=== PATIENT | male | born 1935 | race African-American/Black ===

== ENCOUNTER 2016-11-21 08:39 | Observation (INO) | payer MEDICARE ==
[~2016-11-21] VITALS: Ht 177.8 cm; Wt 80.0 kg
[2016-11-21 08:39] VITALS: BP 133/72; PULSE 63; TEMP 98.5; O2SAT 97
[~2016-11-21 08:39] MED LIST: APIX5TAB PO; CIPR-9 PO; COZA100T PO; HYDR25TA5 PO; LEVO50TA4 PO; METO100T PO; MIRA3350; MULT1CHW70; NITR50CA27 PO; PRAV80TA2 PO; SULF20OR2 PO; VITATAB11; ZINCCAP; [UNRECOGNIZED DRUG - CODE] PO
[2016-11-21] MEDS ORDERED: SODIUM CHLOR 0.9% 1000 ML INJ 1,000 ML IV SCH (08:49)
[2016-11-21 08:54] VITALS: O2SAT 96
--- NOTE | 2016-11-21 08:58 | PD ---
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 EMS reports that over the past couple days patient's got progressively more weak , progressively less responsive. They report he normally is awake and talking and requires some assistance with his day-to-day activities. Family reports that over the past day or 2 as required increasing assistance, and is now not responding to them at all. History Past Medical History Narrative Medical Left MCA stroke residual right sided deficits Carotid artery disease Hypertension hyperlipidemia Hypothyroidism Urinary retention with chronic indwelling Ayon catheter A. fib, on Eliquis Social History Alcohol Use: No Tobacco Use: No Allergies-Medications (Allergen,Severity, Reaction): Coded Allergies: No Known Allergies (Unverified , 08/17/16) Reported Meds & Prescriptions Reported Meds & Active Scripts Active Reported Pravastatin 80 Mg Tab 80 Mg PO DAILY Vitamin B Complex (B-Complex Vitamins) 1 Tab Macrodantin (Nitrofurantoin Macrocrystal) 50 Mg Cap 50 Mg PO DAILY Metoprolol Tartrate 100 Mg Tab 100 Mg PO BID Cozaar (Losartan Potassium) 100 Mg Tab 100 Mg PO DAILY Levothyroxine (Levothyroxine Sodium) 50 Mcg Tab 50 Mcg PO DAILY Hydrochlorothiazide 25 Mg Tab 25 Mg PO DAILY Eliquis (Apixaban) 5 Mg Tab 5 Mg PO BID Review of Systems ROS Limitations: Clinical Condition Physical Exam Narrative GENERAL: 80-year-old man, generally well-appearing a well cared for, no acute distress. SKIN: Focused skin assessment warm/dry. HEAD: Atraumatic. Normocephalic. EYES: Pupils equal and round. No scleral icterus. No injection or drainage. ENT: No nasal bleeding or discharge. Mucous membranes pink and moist. NECK: Trachea midline. No JVD. CARDIOVASCULAR: Regular rate and rhythm. No murmur appreciated. RESPIRATORY: No accessory muscle use. Clear to auscultation. Breath sounds equal bilaterally. GASTROINTESTINAL: Abdomen soft, non-tender, nondistended. Hepatic and splenic margins not palpable. MUSCULOSKELETAL: No obvious deformities. No clubbing. No cyanosis. No edema. NEUROLOGICAL: Awake and alert. Very limited speech. He appears to have right sided hemicolectomy. He has right sided contractures and weakness. He'll mumble, but will really answer any questions. He cannot say his name. Data Data Last Documented VS Vital Signs Date Time Temp Pulse Resp B/P Pulse Ox O2 Delivery O2 Flow Rate FiO2 11/21/16 11:00 66 16 121/65 99 Room Air 11/21/16 08:39 98.5 Orders Electrocardiogram (11/21/16 08:49) Complete Blood Count With Diff (11/21/16 08:49) Comprehensive Metabolic Panel (11/21/16 08:49) Creatine Kinase (Cpk) (11/21/16 08:49) Prothrombin Time / Inr (Pt) (11/21/16 08:49) Act Partial Throm Time (Ptt) (11/21/16 08:49) Troponin I (11/21/16 08:49) Thyroid Stimulating Hormone (11/21/16 08:49) Urinalysis - C+S If Indicated (11/21/16 08:49) Chest, Single Ap (11/21/16 08:49) Ct Brain W/O Iv Contrast(Rout) (11/21/16 08:49) Blood Glucose (11/21/16 08:49) Ecg Monitoring (11/21/16 08:49) Iv Access Insert/Monitor (11/21/16 08:49) Oximetry (11/21/16 08:49) Sodium Chloride 0.9% Flush (Ns Flush) (11/21/16 09:00) Sodium Chlor 0.9% 1000 Ml Inj (Ns 1000 M (11/21/16 08:49) Urine Culture (11/21/16 09:10) Ceftriaxone Inj (Rocephin Inj) (11/21/16 11:15) Admit Order (Ed Use Only) (11/21/16 ) Labs Laboratory Tests Test 11/21/16 09:10 White Blood Count 17.6 TH/MM3 Red Blood Count 5.09 MIL/MM3 Hemoglobin 14.4 GM/DL Hematocrit 44.9 % Mean Corpuscular Volume 88.2 FL Mean Corpuscular Hemoglobin 28.2 PG Mean Corpuscular Hemoglobin 32.0 % Concent Red Cell Distribution Width 15.0 % Platelet Count 134 TH/MM3 Mean Platelet Volume 11.4 FL Neutrophils (%) (Auto) 84.5 % Lymphocytes (%) (Auto) 5.8 % Monocytes (%) (Auto) 8.8 % Eosinophils (%) (Auto) 0.4 % Basophils (%) (Auto) 0.5 % Neutrophils # (Auto) 14.9 TH/MM3 Lymphocytes # (Auto) 1.0 TH/MM3 Monocytes # (Auto) 1.6 TH/MM3 Eosinophils # (Auto) 0.1 TH/MM3 Basophils # (Auto) 0.1 TH/MM3 CBC Comment AUTO DIFF Differential Total Cells 100 Counted Neutrophils % (Manual) 57 % Band Neutrophils % 8 % Lymphocytes % 31 % Monocytes % 4 % Neutrophils # (Manual) 11.4 TH/MM3 Differential Comment FINAL DIFF MANUAL Platelet Estimate LOW Platelet Morphology Comment NORMAL Acanthocytes OCC Prothrombin Time 16.5 SEC Prothromb Time International 1.5 RATIO Ratio Activated Partial 39.5 SEC Thromboplast Time Urine Color YELLOW Urine Turbidity HAZY Urine pH 6.5 Urine Specific [place] 1.019 Urine Protein 100 mg/dL Urine Glucose (UA) NEG mg/dL Urine Ketones NEG mg/dL Urine Occult Blood SMALL Urine Nitrite NEG Urine Bilirubin NEG Urine Urobilinogen 2.0 MG/DL Urine Leukocyte Esterase LARGE Urine RBC 16 /hpf Urine WBC 62 /hpf Urine Squamous Epithelial <1 /hpf Cells Urine Bacteria FEW /hpf Urine Hyaline Casts 4 /lpf Urine Granular Casts 4 /lpf Urine Mucus FEW /lpf Microscopic Urinalysis Comment CATH-CULTURE IND Sodium Level 142 MEQ/L Potassium Level 3.9 MEQ/L Chloride Level 106 MEQ/L Carbon Dioxide Level 26.0 MEQ/L Anion Gap 10 MEQ/L Blood Urea Nitrogen 21 MG/DL Creatinine 1.52 MG/DL Estimat Glomerular Filtration 54 ML/MIN Rate Random Glucose 111 MG/DL Calcium Level 8.8 MG/DL Total Bilirubin 1.9 MG/DL Aspartate Amino Transf 22 U/L (AST/SGOT) Alanine Aminotransferase 24 U/L (ALT/SGPT) Alkaline Phosphatase 57 U/L Total Creatine Kinase 68 U/L Troponin I 0.04 NG/ML Total Protein 7.2 GM/DL Albumin 3.5 GM/DL Thyroid Stimulating Hormone 5.210 uIU/ML 3rd Gen [facility] Medical Decision Making Medical Screen Exam Complete: Yes Emergency Medical Condition: Yes Interpretation(s) My review of EKG: A. fib with slow ventricular response, rate of 50, large lateral inverted T waves, compared to previous EKG, compared to previous EKG no significant change Differential Diagnosis Weakness, infection, electrolyte abnormalities, dehydration, stroke, other Narrative Course Medical decision making INITIAL: 80-year-old male gradually worsening altered mental status and generalized weakness. He looks generally well. Family is on the way up. He appears to be worse than his baseline. Wide differential diagnosis. We'll check labs, urine, x-ray, CT, reassess. Gerry Mistry MD Nov 21, 2016 08:58
[2016-11-21] MEDS ORDERED: SODIUM CHLORIDE 0.9% FLUSH 5 ML FLUSH IV FLUSH PRN (09:00)
[2016-11-21 09:24] LABS: AUTOMATED NEUTROPHIL # 14.9 TH/MM3 (1.8-7.7); BASOPHIL # 0.1 TH/MM3 (0-0.2); BASOPHIL % 0.5 % (0.0-2.0); EOSINOPHIL # 0.1 TH/MM3 (0-0.4); EOSINOPHIL % 0.4 % (0.0-4.0); HEMATOCRIT 44.9 % (39.0-51.0); LYMPH % 5.8 % (9.0-44.0); MEAN CELL VOLUME 88.2 FL (80.0-100.0); MEAN CORPUSCULAR HEMOGLOBIN 28.2 PG (27.0-34.0); MONO % 8.8 % (0.0-8.0); NEUT % 84.5 % (16.0-70.0); PLATELET COUNT 134 TH/MM3 (150-450); RED BLOOD COUNT 5.09 MIL/MM3 (4.50-5.90); WHITE BLOOD COUNT 17.6 TH/MM3 (4.0-11.0)
[2016-11-21 09:26] LABS: HEMO FLAGS AUTO DIFF
[2016-11-21 09:35] LABS: APTT (PATIENT) 39.5 SEC (24.3-30.1); INTERNATIONAL NORMALIZED RATIO 1.5 RATIO; PROTHROMBIN TIME - PATIENT 16.5 SEC (9.8-11.6)
[2016-11-21 10:10] LABS: ALKALINE PHOSPHATASE 57 U/L (45-117); ALT (GPT) 24 U/L (12-78); ANION GAP 10 MEQ/L (5-15); BLOOD UREA NITROGEN 21 MG/DL (7-18); CHLORIDE 106 MEQ/L (98-107); GLOMERULAR FILTRATION RATE 54 ML/MIN (>89); SODIUM (NA) 142 MEQ/L (136-145); TOTAL BILIRUBIN ADULT 1.9 MG/DL (0.2-1.0)
--- NOTE | 2016-11-21 10:10 | RADRPT ---
EXAM DATE/TIME: 11/21/2016 09:43 [facility] COMPARISON: CHEST SINGLE AP, June 02, 2016, 5:42. INDICATIONS : Syncope. MEDICAL HISTORY : Hypertension. Stroke. SURGICAL HISTORY : None. ENCOUNTER: Initial ACUITY: 1 day PAIN SCORE: 0/10 LOCATION: Bilateral chest FINDINGS: A single view of the chest demonstrates no evidence of mass, infiltrate or effusion. Elevation left h emidiaphragm with shift of mediastinum to the right again seen. The cardiomediastinal contours are un remarkable. Osseous structures are intact. CONCLUSION: Stable chest with elevation left hemidiaphragm.. Marques Argueta MD on November 21, 2016 at 10:07 Board Certified Radiologist. This report was verified electronically.
--- NOTE | 2016-11-21 10:12 | RADRPT ---
EXAM DATE/TIME: 11/21/2016 09:57 [facility] COMPARISON: CT BRAIN W/O CONTRAST, October 26, 2015, 17:41. INDICATIONS : Altered mental status. Weakness. RADIATION DOSE: 56.35 CTDIvol (mGy) MEDICAL HISTORY : Cardiovascular disease. Hypertension. SURGICAL HISTORY : None. ENCOUNTER: Initial ACUITY: 1 day PAIN SCALE: 0/10 LOCATION: cranial TECHNIQUE: Multiple contiguous axial images were obtained of the head. Using automated exposure control and adj ustment of the mA and/or kV according to patient size, radiation dose was kept as low as reasonably a chievable to obtain optimal diagnostic quality images. FINDINGS: There is marked central and cortical atrophy with dilatation of ventricular and sulcal spaces. Old le ft MCA distribution infarct. Scattered areas of low attenuation throughout the white matter. Lacunar infarct left caudate head. There is no parenchymal hemorrhage, acute infarction or mass lesion identi fied. There are no extra-axial fluid collections appreciated. The posterior fossa is unremarkable w ith midline fourth ventricle. The portion of the orbits and paranasal sinuses visualized are unremar kable. CONCLUSION: 1. Cerebral atrophy and chronic ischemic small vessel vasculopathy. 2. Old stable left-sided infarct. Marques Argueta MD on November 21, 2016 at 10:08 Board Certified Radiologist. This report was verified electronically.
[2016-11-21 10:13] LABS: BACTERIA, URINE FEW /hpf; BLOOD, URINE SMALL (NEG); GLUCOSE,URINE NEG (NEG); GRANULAR CAST, URINE 4 /lpf; HYALINE CAST, URINE 4 /lpf (RARE); KETONE, URINE NEG (NEG); MUCUS URINE FEW /lpf (OCC); NITRITE,URINE NEG (NEG); PH, URINE 6.5 (5.0-8.5); SQUAMOUS EPITHELIAL CELL URINE <1 /hpf (0-5); URINE COLOR YELLOW (YELLW/STRAW)
[2016-11-21 10:14] LABS: COMMENT (UR) CATH-CULTURE IND; CULTURE IF INDICATED CATH CULTURE IND
[2016-11-21 10:19] LABS: AST (GOT) 22 U/L (15-37); CREATINE KINASE 68 U/L (39-308); POTASSIUM 3.9 MEQ/L (3.5-5.1)
[2016-11-21 10:40] LABS: BANDS 8 % (0-6); NEUTROPHIL # MANUAL DIFF 11.4 TH/MM3 (1.8-7.7); PLATELET ESTIMATE SMEAR LOW (NORMAL); PLATELET MORPHOLOGY NORMAL (NORMAL); POLYS (SEG NEUTROPHILS) 57 % (16-70); SCAN/DIFF FINAL DIFF MANUAL; WBC DIFF SAMPLE 100
[2016-11-21 10:41] LABS: ACANTHOCYTES OCC (NORMAL)
[2016-11-21 11:00] VITALS: BP 121/65; PULSE 66; RESP 16; O2SAT 99
[2016-11-21] MEDS ORDERED: cefTRIAXone INJ 1,000 MG in SODIUM CHLORIDE 0.9% INJ 100 ML IV ONE (11:15)
[2016-11-21] MEDS ORDERED: ONDANSETRON HCL 4 MG/2 ML VIAL IV PUSH PRN (12:30)
[2016-11-21] MEDS ORDERED: SODIUM CHLORID 0.9% 500 ML INJ 500 ML IV ONE (12:30)
[2016-11-21] MEDS ORDERED: ACETAMINOPHEN 325 MG TAB PO PRN (12:30)
--- NOTE | 2016-11-21 12:37 | HHI.HP ---
HPI Service [facility] Primary Care Physician Unknown Admission Diagnosis UTI, AMS Diagnoses: (1) Acute encephalopathy Diagnosis: Principal (2) UTI (urinary tract infection) Diagnosis: Principal Chief Complaint: altered mental status Travel History International Travel<30 Days: No Contact w/Intl Traveler <30 Da: No Traveled to Known Affected Are: No History of Present Illness patient is a 80 y/o male with history of atrial fibrillation, CVA with right sided residual weakness, and urinary retention with carrasco catheter in place, was brought to ER with altered mental status. most of the information was obtained from his daughters at the bedside. his daughter says that his carrasco cath was changed on Sunday. he started to have some discomfort after the carrasco exchange. he then started to get weak over the weekend. she says that he normally helps them with routine daily activities. but on Sunday he was so weak that ' he couldn't do anything'. the daughter decided to bring him to ER and while he was in the garage ' he spaced out ' which she says that 'it happens when he has UTI'. there's no report of fever, chills, chest pain, sob or headache.carrasco was changed in ER. at the time of my evaluation he was resting comfortably with no distress. the daughter says that he's back to his normal. Review of Systems Constitutional: DENIES: Fever, Weight loss, Chills, Night Sweats Eyes: DENIES: Blurred vision, Diplopia, Vision loss, Double Vision Ears, nose, mouth, throat: DENIES: Tinnitus, Vertigo, Throat pain, Epistaxis Respiratory: DENIES: Apneas, Cough, Snoring, Wheezing, Hemoptysis, Sputum production, Shortness of breath Cardiovascular: DENIES: Chest pain, Palpitations, Syncope, Dyspnea on Exertion , PND, Lower Extremity Edema, Orthopnea, Claudication Gastrointestinal: DENIES: Abdominal pain, Black stools, Bloody stools, Constipation, Diarrhea, Nausea, Vomiting, Difficulty Swallowing, Anorexia Genitourinary: DENIES: Urinary frequency, Urgency, Hematuria, Dysuria Musculoskeletal: DENIES: Joint pain, Muscle aches, Stiffness, Joint Swelling Integumentary: DENIES: Rash Neurologic: COMPLAINS OF: Poor Balance, DENIES: Abnormal gait, Headache, Localized weakness, Paresthesias, Seizures, Speech Problems, Tremor Psychiatric: COMPLAINS OF: Confusion, DENIES: Anxiety, Mood changes, Depression, Hallucinations, Agitation, Suicidal Ideation, Homicidal Ideation, Delusions Past Family Social History Past Medical History atrial fibrillation CVA urinary retention carotid artery disease Past Surgical History carotid endarterectomy appendectomy Reported Medications Pravastatin 80 Mg Tab 80 Mg PO DAILY Vitamin B Complex (B-Complex Vitamins) 1 Tab Macrodantin (Nitrofurantoin Macrocrystal) 50 Mg Cap 50 Mg PO DAILY Metoprolol Tartrate 100 Mg Tab 100 Mg PO BID Cozaar (Losartan Potassium) 100 Mg Tab 100 Mg PO DAILY Levothyroxine (Levothyroxine Sodium) 50 Mcg Tab 50 Mcg PO DAILY Hydrochlorothiazide 25 Mg Tab 25 Mg PO DAILY Eliquis (Apixaban) 5 Mg Tab 5 Mg PO BID Allergies: Coded Allergies: No Known Allergies (Unverified , 08/17/16) Active Ordered Medications Current Medications IV Flush 2 ml 2 ml UNSCH PRN IV FLUSH FLUSH AFTER USING IV ACCESS; Start at 09:00 Sodium Chloride 1,000 ml @ 1,000 mls/hr Q1H IV Last administered on 11/21/16 09:20; Start 11/21/16 at 08:49; Stop 11/21/16 at 09:48; Status DC Ceftriaxone Sodium/Sodium Chloride (Rocephin Inj/NS Inj) 100 ml @ 200 mls/hr ONCE ONCE IV Last administered on 11/21/16 11:13; Start 11/21/16 at 11:15; Stop 11/21/16 at 11:44; Status DC Family History heart disease in sister. Social History no smoking or drinking. lives at home and being helped by his daughters. Physical Exam Vital Signs Vital Signs Date Time Temp Pulse Resp B/P Pulse Ox O2 Delivery O2 Flow Rate FiO2 11/21/16 11:00 66 16 121/65 99 Room Air 11/21/16 08:54 96 Room Air 11/21/16 08:54 60 17 96 Room Air 11/21/16 08:39 98.5 63 133/72 97 Physical Exam GENERAL: elderly male, in no apparent distress. SKIN: No rashes, ecchymoses or lesions. Cool and dry. HEAD: Atraumatic. Normocephalic. No temporal or scalp tenderness. EYES: Pupils equal round and reactive. Extraocular motions intact. No scleral icterus. No injection or drainage. ENT: Nose without bleeding, purulent drainage or septal hematoma. Throat without erythema, tonsillar hypertrophy or exudate. Uvula midline. Airway patent. NECK: Trachea midline. No JVD or lymphadenopathy. Supple, nontender, no meningeal signs. CARDIOVASCULAR: Regular rate and rhythm without murmurs, gallops, or rubs. RESPIRATORY: Clear to auscultation. Breath sounds equal bilaterally. No wheezes , rales, or rhonchi. GASTROINTESTINAL: Abdomen soft, non-tender, nondistended. No hepato-splenomegaly , or palpable masses. No guarding. MUSCULOSKELETAL: Extremities without clubbing, cyanosis, or edema. No joint tenderness, effusion, or edema noted. No calf tenderness. Negative Homans sign bilaterally. NEUROLOGICAL: Awake and alert. with right-sided weakness. Laboratory Laboratory Tests Test 11/21/16 09:10 White Blood Count 17.6 Red Blood Count 5.09 Hemoglobin 14.4 Hematocrit 44.9 Mean Corpuscular Volume 88.2 Mean Corpuscular Hemoglobin 28.2 Mean Corpuscular Hemoglobin 32.0 Concent Red Cell Distribution Width 15.0 Platelet Count 134 Mean Platelet Volume 11.4 Neutrophils (%) (Auto) 84.5 Lymphocytes (%) (Auto) 5.8 Monocytes (%) (Auto) 8.8 Eosinophils (%) (Auto) 0.4 Basophils (%) (Auto) 0.5 Neutrophils # (Auto) 14.9 Lymphocytes # (Auto) 1.0 Monocytes # (Auto) 1.6 Eosinophils # (Auto) 0.1 Basophils # (Auto) 0.1 CBC Comment AUTO DIFF Differential Total Cells 100 Counted Neutrophils % (Manual) 57 Band Neutrophils % 8 Lymphocytes % 31 Monocytes % 4 Neutrophils # (Manual) 11.4 Differential Comment FINAL DIFF MANUAL Platelet Estimate LOW Platelet Morphology Comment NORMAL Acanthocytes OCC Prothrombin Time 16.5 Prothromb Time International 1.5 Ratio Activated Partial 39.5 Thromboplast Time Urine Color YELLOW Urine Turbidity HAZY Urine pH 6.5 Urine Specific [place] 1.019 Urine Protein 100 Urine Glucose (UA) NEG Urine Ketones NEG Urine Occult Blood SMALL Urine Nitrite NEG Urine Bilirubin NEG Urine Urobilinogen 2.0 Urine Leukocyte Esterase LARGE Urine RBC 16 Urine WBC 62 Urine Squamous Epithelial <1 Cells Urine Bacteria FEW Urine Hyaline Casts 4 Urine Granular Casts 4 Urine Mucus FEW Microscopic Urinalysis Comment CATH-CULTURE IND Sodium Level 142 Potassium Level 3.9 Chloride Level 106 Carbon Dioxide Level 26.0 Anion Gap 10 Blood Urea Nitrogen 21 Creatinine 1.52 Estimat Glomerular Filtration 54 Rate Random Glucose 111 Calcium Level 8.8 Total Bilirubin 1.9 Aspartate Amino Transf 22 (AST/SGOT) Alanine Aminotransferase 24 (ALT/SGPT) Alkaline Phosphatase 57 Total Creatine Kinase 68 Troponin I 0.04 Total Protein 7.2 Albumin 3.5 Thyroid Stimulating Hormone 5.210 3rd Gen Date/Time Procedure Status Source Growth 11/21/16 09:10 Urine Culture Worksheet Urine Catheterized Urine Pending Result Diagram: 11/21/1610 11/21/16 0910 Imaging Last Impressions Head CT 11/21/16 0849 Signed Impressions: Service Date/Time: Monday, November 21, 2016 09:57 - CONCLUSION: 1. Cerebral atrophy and chronic ischemic small vessel vasculopathy. 2. Old stable left- sided infarct. Marques Argueta MD Chest X-Ray 11/21/1649 Signed Impressions: Service Date/Time: Monday, November 21, 2016 09:43 - CONCLUSION: Stable chest with elevation left hemidiaphragm.. Marques Argueta MD EKG; atrial fibrillation with slow ventricular response Assessment and Plan Assessment and Plan A/P - acute encephalopathy likely due to UTI CT head with no acute abnormality continue with IV antibiotic and neuro-checks- follow the culture. -UTI- catheter-associated ( carrasco in place due to chronic urinary retention) carrasco cath was changed in ER - continue with IV Rocephin. -atrial fibrillation- resume BB and eliquis -history of CVA; resume statin and eliquis- will consult PT/ST -chronic renal insufficiency- gentle IV hydration and repeat BMP in am -hypertension; resume home meds and will monitor -hypothyroidism; resume home meds -DVT prophylaxis ; on eliquis Discussed Condition With ER physician, the patient and his daughters. Problem Qualifiers (1) UTI (urinary tract infection): Christina Patel MD Nov 21, 2016 12:37
[2016-11-21 15:34] VITALS: BP 145/70; PULSE 76; RESP 20; TEMP 99.9; O2SAT 96
--- NOTE | 2016-11-21 16:49 | EKG ---
Date Performed: 11/21/2016 Time Performed: 08:59:40 PTAGE: 80 years EKG: ATRIAL FIBRILLATION WITH SLOW VENTRICULAR RESPONSE ST DEVIATION AND MARKED T-WAVE ABNORMALI TY, CONSIDER ANTEROLATERAL ISCHEMIA ST DEVIATION AND MODERATE T-WAVE ABNORMALITY, CONSIDER INFERIOR I SCHEMIA Since previous tracing, no significant change noted ABNORMAL ECG PREVIOUS TRACING : 10/26/2015 19.24 DOCTOR: Karishma Diaz Interpretating Date/Time 11/21/2016 17:27:18
[2016-11-21 20:47] VITALS: BP 125/60; PULSE 66; RESP 18; TEMP 98.1; O2SAT 97
[2016-11-21] MEDS: METOPROLOL TARTRATE 100 MG TAB PO SCH (22:43)
[2016-11-21] MEDS: APIXABAN 5 MG TABLET PO SCH (22:43)
[2016-11-22] VITALS (7 sets, daily range): BP systolic 110–178; BP diastolic 53–84; PULSE 54–84; RESP 17–18; TEMP 97.8–99.7; O2SAT 95–98
[2016-11-22] MEDS ORDERED: LEVOTHYROXINE SODIUM 50 MCG TAB PO SCH (06:00)
[2016-11-22 07:53] LABS: AUTOMATED NEUTROPHIL # 11.1 TH/MM3 (1.8-7.7); BASOPHIL % 0.2 % (0.0-2.0); EOSINOPHIL % 0.3 % (0.0-4.0); HEMATOCRIT 36.3 % (39.0-51.0); HEMO FLAGS DIFF FINAL; LYMPH % 11.9 % (9.0-44.0); LYMPHOCYTE # 1.6 TH/MM3 (1.0-4.8); MEAN CELL VOLUME 86.9 FL (80.0-100.0); MEAN CORPUSCULAR HGB CONC 33.3 % (32.0-36.0); MONO % 6.8 % (0.0-8.0); NEUT % 80.8 % (16.0-70.0); PLATELET COUNT 107 TH/MM3 (150-450); RED BLOOD COUNT 4.18 MIL/MM3 (4.50-5.90); RED CELL DISTRIBUTION WIDTH 14.7 % (11.6-17.2); WHITE BLOOD COUNT 13.7 TH/MM3 (4.0-11.0)
[2016-11-22 08:15] LABS: BICARBONATE 26.6 MEQ/L (21.0-32.0); POTASSIUM 3.5 MEQ/L (3.5-5.1)
[2016-11-22] MEDS: PRAVASTATIN SOD 80 MG TAB PO SCH (08:57)
[2016-11-22] MEDS: LOSARTAN 50 MG TAB PO SCH (08:57)
[2016-11-22] MEDS: METOPROLOL TARTRATE 100 MG TAB PO SCH ×2 (08:57→21:00)
[2016-11-22] MEDS: APIXABAN 5 MG TABLET PO SCH ×2 (08:57→21:00)
--- NOTE | 2016-11-22 09:11 | HHI.PR ---
Subjective Remarks Follow-up for altered mental status. RN at bedside. The patient is awake and alert and in no distress distress. He is unable to provide any history and only mumbles incoherently. He does shake his head yes he's been eating. He does shake his head yes that he lives with his daughter. Objective Vitals Vital Signs Date Time Temp Pulse Resp B/P Pulse Ox O2 Delivery O2 Flow Rate FiO2 11/22/16 05:17 98.0 77 18 178/84 97 11/22/16 00:00 98.4 78 18 121/68 97 11/21/16 20:47 98.1 66 18 125/60 97 11/21/16 15:34 99.9 76 20 145/70 96 11/21/16 11:00 66 16 121/65 99 Room Air I/O 11/21/16 11/21/16 11/21/16 11/22/16 11/22/16 11/22/16 07:00 15:00 23:00 07:00 15:00 23:00 Intake Total 0 ml 100 ml 200 ml Output Total 600 ml Balance 0 ml 100 ml -400 ml Intake Oral 0 ml 100 ml 200 ml Output Urine Total 600 ml Result Diagram: 11/22/16 0600 11/22/16 0600 Imaging Last Impressions Head CT 11/21/16 0849 Signed Impressions: Service Date/Time: Monday, November 21, 2016 09:57 - CONCLUSION: 1. Cerebral atrophy and chronic ischemic small vessel vasculopathy. 2. Old stable left- sided infarct. Marques Argueta MD Chest X-Ray 11/21/16 0849 Signed Impressions: Service Date/Time: Monday, November 21, 2016 09:43 - CONCLUSION: Stable chest with elevation left hemidiaphragm.. Marques Argueta MD Objective Remarks GENERAL: Well-developed well-nourished. In no acute distress. SKIN: Warm and dry. No lesions noted. HEENT: Normocephalic. Pupils equal and round. Mucous membranes pink and moist. CARDIOVASCULAR: Irregular rate and rhythm. No murmur appreciated. RESPIRATORY: No accessory muscle use. Clear to auscultation. Breath sounds equal bilaterally. GASTROINTESTINAL: Abdomen soft, non-tender, nondistended. Bowel sounds x4. MUSCULOSKELETAL: No obvious deformities. No clubbing or cyanosis. No edema. NEUROLOGICAL: Awake and alert. Strength 1/5 in the right and 4/5 on the left. Dysphasia. A/P Problem List: (1) Acute encephalopathy ICD Code: G93.40 Status: Acute (2) UTI (urinary tract infection) ICD Code: N39.0 Status: Acute Assessment and Plan 80 y/o male with history of atrial fibrillation, CVA with right sided residual weakness, and urinary retention with carrasco catheter in place, was brought to ER with altered mental status acute metabolic encephalopathy: Suspect due to UTI Reviewed: CT head with no acute abnormality. UA with evidence of infection. Labs with signs of dehydration. -continue with antibiotics -neuro-checks UTI- catheter-associated ( carrasco in place due to chronic urinary retention). carrasco cath was changed in ER - continue with IV Rocephin. -Follow up urine culture Atrial fibrillation: Chronic, stable. 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 TSH elevated at 5.21. -Increase in levothyroxine. Repeat thyroid function in 4-6 as outpatient. -DVT prophylaxis ; on eliquis Problem Qualifiers (1) UTI (urinary tract infection): Jamel Kumar Nov 22, 2016 09:11
[2016-11-22] MEDS ORDERED: cefTRIAXone INJ 1,000 MG in SODIUM CHLORIDE 0.9% INJ 100 ML IV SCH (11:00)
--- NOTE | 2016-11-22 15:58 | HHI.FF ---
Face to Face Verification Diagnosis: (1) Acute encephalopathy (2) Urinary retention (3) UTI (urinary tract infection) Physical Therapy Order: Evaluate and Treat, Improve ambulation, Strength and gait training Home Health Nursing Order: Medical education Signs/symptoms of disease process Medication education-adverse effect Nursing assessment with vital signs I have seen patient Buzz Blanco on 11/22/16. My clinical findings support the need for the requested home health care services because: Ltd mobility - disease progression Deconditioned w/ increased weakness Med compliance is questionable Limited ability to care for self Need for psychosocial assistance Impaired cognition/judgement High risk of falls I certify that my clinical findings support that this patient is homebound because: Impaired cognitive ability/safety Unsteady gait/balance Unsafe to leave home unassisted Need for psychosocial assistance [id number] bed/chair Jamel Kumar Nov 22, 2016 15:58 Chanell Woodson MD Nov 24, 2016 17:41
[2016-11-22 16:56] LABS: BACTERIA, URINE RARE /hpf; BLOOD, URINE TRACE (NEG); GLUCOSE,URINE NEG (NEG); KETONE, URINE NEG (NEG); MUCUS URINE FEW /lpf (OCC); NITRITE,URINE NEG (NEG); PH, URINE 5.5 (5.0-8.5); URINE COLOR YELLOW (YELLW/STRAW)
[2016-11-22 16:59] LABS: COMMENT (UR) CATH-CULTURE IND; CULTURE IF INDICATED CATH CULTURE IND
[2016-11-22] MEDS: NITROFURANTOIN MONOHYD MACROCR 100 MG CAP PO SCH (18:25)
[2016-11-23 03:16] VITALS: BP 134/69; PULSE 69; RESP 18; TEMP 97.9; O2SAT 97
[2016-11-23] MEDS ORDERED: LEVOTHYROXINE SODIUM 75 MCG TAB PO SCH (06:00)
[2016-11-23 07:07] LABS: AUTOMATED NEUTROPHIL # 8.1 TH/MM3 (1.8-7.7); BASOPHIL % 0.3 % (0.0-2.0); EOSINOPHIL # 0.1 TH/MM3 (0-0.4); EOSINOPHIL % 1.1 % (0.0-4.0); HEMATOCRIT 38.3 % (39.0-51.0); HEMO FLAGS DIFF FINAL; LYMPH % 16.5 % (9.0-44.0); LYMPHOCYTE # 1.8 TH/MM3 (1.0-4.8); MEAN CELL VOLUME 86.5 FL (80.0-100.0); MEAN CORPUSCULAR HEMOGLOBIN 28.9 PG (27.0-34.0); MEAN CORPUSCULAR HGB CONC 33.4 % (32.0-36.0); MONO % 6.6 % (0.0-8.0); NEUT % 75.5 % (16.0-70.0); PLATELET COUNT 108 TH/MM3 (150-450); RED BLOOD COUNT 4.42 MIL/MM3 (4.50-5.90); RED CELL DISTRIBUTION WIDTH 14.7 % (11.6-17.2); WHITE BLOOD COUNT 10.7 TH/MM3 (4.0-11.0)
[2016-11-23 07:18] VITALS: BP 139/66; PULSE 74; RESP 18; TEMP 99.2; O2SAT 95
[2016-11-23 07:24] LABS: BICARBONATE 24.8 MEQ/L (21.0-32.0); POTASSIUM 3.4 MEQ/L (3.5-5.1)
[2016-11-23] MEDS ORDERED: POTASSIUM CHLORIDE 20 MEQ CONTROLLED RELEASE TAB PO ONE (08:45)
[2016-11-23] MEDS ORDERED: NITR100C4 PO (08:53)
[2016-11-23] MEDS ORDERED: LEVO.075 PO (09:05)
--- NOTE | 2016-11-23 09:06 | HHI.PR ---
Subjective Remarks Follow-up for fevers and possible altered mental status. Discussed with RN and case management. The patient's daughter who takes care of him has been here and is asking when he can be discharged. Patient's family has no further acute concerns. Patient's family is asking to take the patient home with home health care which has been arranged. Per nursing, no acute issues or concerns overnight. The patient remains aphasic at baseline. The patient does indicate that he wants to go home today and has no complaints. Objective Vitals Vital Signs Date Time Temp Pulse Resp B/P Pulse Ox O2 Delivery O2 Flow Rate FiO2 11/23/16 07:18 99.2 74 18 139/66 95 11/23/16 03:16 97.9 69 18 134/69 97 11/22/16 22:54 98.9 70 17 144/67 97 11/22/16 19:17 97.9 83 18 126/65 98 11/22/16 16:00 99.7 80 18 124/60 95 11/22/16 12:00 97.8 54 18 110/53 95 I/O 11/22/16 11/22/16 11/22/16 11/23/16 11/23/16 11/23/16 07:00 15:00 23:00 07:00 15:00 23:00 Intake Total 200 ml 960 ml 100 ml Output Total 900 ml 300 ml 325 ml Balance -700 ml 660 ml -225 ml Intake Oral 200 ml 960 ml 100 ml Output Urine Total 900 ml 300 ml 325 ml # Bowel Movements 1 1 Result Diagram: 11/23/16 0558 11/23/16 0558 Imaging Last Impressions Head CT 11/21/16848 Signed Impressions: Service Date/Time: Monday, November 21, 2016 09:57 - CONCLUSION: 1. Cerebral atrophy and chronic ischemic small vessel vasculopathy. 2. Old stable left- sided infarct. Marques Argueta MD Chest X-Ray 11/21/16848 Signed Impressions: Service Date/Time: Monday, November 21, 2016 09:43 - CONCLUSION: Stable chest with elevation left hemidiaphragm.. Marques Argueta MD Objective Remarks GENERAL: Well-developed well-nourished. In no acute distress. SKIN: Warm and dry. No lesions noted on focused skin assessment. HEENT: Normocephalic. Pupils equal and round. Mucous membranes pink and moist. CARDIOVASCULAR: Irregular rate and rhythm. No murmur appreciated. RESPIRATORY: No accessory muscle use. Clear to auscultation. Breath sounds equal bilaterally. GASTROINTESTINAL: Abdomen soft, non-tender, nondistended. Bowel sounds x4. MUSCULOSKELETAL: No obvious deformities. No clubbing or cyanosis. No edema. NEUROLOGICAL: Awake and alert. Strength 1/5 in the right and 4/5 on the left. Dysphasia. A/P Problem List: (1) Acute encephalopathy ICD Code: G93.40 Status: Acute (2) UTI (urinary tract infection) ICD Code: N39.0 Status: Acute Assessment and Plan 80 y/o male with history of atrial fibrillation, CVA with right sided residual weakness, and urinary retention with carrasco catheter in place, was brought to ER with altered mental status acute metabolic encephalopathy: Suspect due to UTI. Improved. Reviewed: CT head with no acute abnormality. UA with evidence of infection, however urine culture with no growth. Chest x-ray clear. Leukocytosis has resolved. Labs with signs of dehydration, now improved. -continue with antibiotics as below -[facility] at discharge, case management has arranged UTI- catheter-associated ( carrasco in place due to chronic urinary retention). carrasco cath was changed in ER -Received IV Rocephin 2, urine culture with no significant growth, repeat UA improving, continue Macrobid, leukocytosis resolved. Atrial fibrillation: Chronic, stable. 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 Creatinine continued to improved to 1.05 overnight. -Resolved. hypertension; chronic, stable -Continue home meds and will monitor hypothyroidism; chronic. TSH elevated at 5.21. -Increase in levothyroxine. Repeat thyroid function in 4-6 as outpatient. -DVT prophylaxis ; on eliquis Discharge Planning Discharge patient to home Condition on discharge: Improved Heart healthy Diet as tolerated Regular activity Rx written: Macrobid, levothyroxine Follow-up with primary care physician Problem Qualifiers (1) UTI (urinary tract infection): Jamle Kumar Nov 23, 2016 09:06
[2016-11-23] MEDS: METOPROLOL TARTRATE 100 MG TAB PO SCH (09:26)
[2016-11-23] MEDS: LOSARTAN 50 MG TAB PO SCH (09:26)
[2016-11-23] MEDS: PRAVASTATIN SOD 80 MG TAB PO SCH (09:27)
[2016-11-23] MEDS: APIXABAN 5 MG TABLET PO SCH (09:29)
[2016-11-23] MEDS: NITROFURANTOIN MONOHYD MACROCR 100 MG CAP PO SCH (09:29)
[2016-11-23] MEDS ORDERED: POTASSIUM CHLORIDE 20 MEQ PWD PACKET PO ONE (10:00)
[2016-11-23 11:05] VITALS: BP 114/58; PULSE 60; RESP 16; TEMP 98.7; O2SAT 99
--- NOTE | 2016-11-23 13:49 | HHI.DS ---
Discharge Summary Admission Date Nov 21, 2016 at 11:16 Discharge Date: Nov 23, 2016 Admitting Diagnosis UTI, AMS (1) Acute encephalopathy ICD Code: G93.40 Diagnosis: Principal (2) UTI (urinary tract infection) ICD Code: N39.0 Diagnosis: Principal Procedures none Brief History - From Admission patient is a 80 y/o male with history of atrial fibrillation, CVA with right sided residual weakness, and urinary retention with carrasco catheter in place, was brought to ER with altered mental status. most of the information was obtained from his daughters at the bedside. his daughter says that his carrasco cath was changed on Sunday. he started to have some discomfort after the carrasco exchange. he then started to get weak over the weekend. she says that he normally helps them with routine daily activities. but on Sunday he was so weak that ' he couldn't do anything'. the daughter decided to bring him to ER and while he was in the garage ' he spaced out ' which she says that 'it happens when he has UTI'. there's no report of fever, chills, chest pain, sob or headache.carrasco was changed in ER. at the time of my evaluation he was resting comfortably with no distress. the daughter says that he's back to his normal. CBC/BMP: 11/23/16 0558 11/23/16 0558 Significant Findings Laboratory Tests Test 11/21/16 11/22/16 11/22/16 11/23/16 09:10 06:00 16:36 05:58 White Blood Count 17.6 TH/MM3 13.7 TH/MM3 (4.0-11.0) (4.0-11.0) Platelet Count 134 TH/MM3 107 TH/MM3 108 TH/MM3 (150-450) (150-450) (150-450) Mean Platelet Volume 11.4 FL 11.7 FL 11.4 FL (7.0-11.0) (7.0-11.0) (7.0-11.0) Neutrophils (%) (Auto) 84.5 % 80.8 % 75.5 % (16.0-70.0) (16.0-70.0) (16.0-70.0) Lymphocytes (%) (Auto) 5.8 % (9.0-44.0) Monocytes (%) (Auto) 8.8 % (0.0-8.0) Neutrophils # (Auto) 14.9 TH/MM3 11.1 TH/MM3 8.1 TH/MM3 (1.8-7.7) (1.8-7.7) (1.8-7.7) Monocytes # (Auto) 1.6 TH/MM3 (0-0.9) Band Neutrophils % 8 % (0-6) Neutrophils # (Manual) 11.4 TH/MM3 (1.8-7.7) Platelet Estimate LOW (NORMAL) Prothrombin Time 16.5 SEC (9.8-11.6) Activated Partial 39.5 SEC Thromboplast Time (24.3-30.1) Urine Turbidity HAZY (CLEAR) Urine Protein 100 mg/dL (NEG-TRACE) Urine Occult Blood SMALL (NEG) TRACE (NEG) Urine Leukocyte Esterase LARGE (NEG) MOD (NEG) Urine RBC 16 /hpf (0-3) 7 /hpf (0-3) Urine WBC 62 /hpf (0-5) Urine Bacteria FEW /hpf (NONE) RARE /hpf (NONE) Urine Mucus FEW /lpf (OCC) FEW /lpf (OCC) Blood Urea Nitrogen 21 MG/DL (7-18) 21 MG/DL (7-18) Creatinine 1.52 MG/DL (0.60-1.30) Estimat Glomerular Filtration 54 ML/MIN (>89) 68 ML/MIN (>89) 83 ML/MIN (>89) Rate Random Glucose 111 MG/DL (74-106) Total Bilirubin 1.9 MG/DL (0.2-1.0) Thyroid Stimulating Hormone 5.210 uIU/ML 3rd Gen (0.358-3.740) Red Blood Count 4.18 MIL/MM3 4.42 MIL/MM3 (4.50-5.90) (4.50-5.90) Hemoglobin 12.1 GM/DL 12.8 GM/DL (13.0-17.0) (13.0-17.0) Hematocrit 36.3 % 38.3 % (39.0-51.0) (39.0-51.0) Calcium Level 8.0 MG/DL 8.1 MG/DL (8.5-10.1) (8.5-10.1) Potassium Level 3.4 MEQ/L (3.5-5.1) Imaging Last Impressions Head CT 11/21/16 0849 Signed Impressions: Service Date/Time: Monday, November 21, 2016 09:57 - CONCLUSION: 1. Cerebral atrophy and chronic ischemic small vessel vasculopathy. 2. Old stable left- sided infarct. Marques Argueta MD Chest X-Ray 11/21/16 0849 Signed Impressions: Service Date/Time: Monday, November 21, 2016 09:43 - CONCLUSION: Stable chest with elevation left hemidiaphragm.. Marques Argueta MD PE at Discharge GENERAL: Well-developed well-nourished. In no acute distress. SKIN: Warm and dry. No lesions noted on focused skin assessment. HEENT: Normocephalic. Pupils equal and round. Mucous membranes pink and moist. CARDIOVASCULAR: Irregular rate and rhythm. No murmur appreciated. RESPIRATORY: No accessory muscle use. Clear to auscultation. Breath sounds equal bilaterally. GASTROINTESTINAL: Abdomen soft, non-tender, nondistended. Bowel sounds x4. MUSCULOSKELETAL: No obvious deformities. No clubbing or cyanosis. No edema. NEUROLOGICAL: Awake and alert. Strength 1/5 in the right and 4/5 on the left. Dysphasia. Hospital Course 80 y/o male with history of atrial fibrillation, CVA with right sided residual weakness, and urinary retention with carrasco catheter in place, was brought to ER with altered mental status acute metabolic encephalopathy: Suspect due to UTI. Improved. Reviewed: CT head with no acute abnormality. UA with evidence of infection, however urine culture with no growth. Chest x-ray clear. Leukocytosis has resolved. Labs with signs of dehydration, now improved. -continue with antibiotics as below -[facility] at discharge, case management has arranged UTI- catheter-associated ( carrasco in place due to chronic urinary retention). carrasco cath was changed in ER -Received IV Rocephin 2, urine culture with no significant growth, repeat UA improving, continue Macrobid, leukocytosis resolved. Atrial fibrillation: Chronic, stable. 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 Creatinine continued to improved to 1.05 overnight. -Resolved. hypertension; chronic, stable -Continue home meds and will monitor hypothyroidism; chronic. TSH elevated at 5.21. -Increase in levothyroxine. Repeat thyroid function in 4-6 as outpatient. -DVT prophylaxis ; on eliquis Discharge Planning Discharge patient to home Condition on discharge: Improved Heart healthy Diet as tolerated Regular activity Rx written: Macrobid, levothyroxine Follow-up with primary care physician Pt Condition on Discharge: Stable Discharge Disposition: Disch w/ Home Health Serv Discharge Time: > 30 minutes Discharge Instructions DIET: Follow Instructions for: Heart Healthy Diet Activities you can perform: Regular-No Restrictions Follow up Referrals: PCP Follow-up - 1 Week New Medications: Levothyroxine (Synthroid) 75 Mcg Tab 75 MCG PO DAILY@0600 Thyroid #30 TAB Nitrofurantoin Monohydrate Macrocrystals (Nitrofurantoin Monohydrate Macrocrystals) 100 Mg Cap 100 MG PO BIDPC Infection #14 CAP Continued Medications: Apixaban (Eliquis) 5 Mg Tab 5 MG PO BID Blood Clot Prevention #60 Ref 0 TAB B-Complex Vitamins (Vitamin B Complex) 1 Tab Hydrochlorothiazide (Hydrochlorothiazide) 25 Mg Tab 25 MG PO DAILY #30 Ref 0 TAB Losartan (Cozaar) 100 Mg Tab 100 MG PO DAILY Blood Pressure Management #30 Ref 0 TAB Metoprolol Tartrate (Metoprolol Tartrate) 100 Mg Tab 100 MG PO BID #60 Ref 0 TAB Pravastatin (Pravastatin) 80 Mg Tab 80 MG PO DAILY Cholesterol Management #30 Ref 0 TAB Discontinued Medications: Levothyroxine (Levothyroxine) 50 Mcg Tab 50 MCG PO DAILY Thyroid #30 Ref 0 TAB Nitrofurantoin Macrocrystal (Macrodantin) 50 Mg Cap 50 MG PO DAILY Infection Ref 0 CAP Chanell Woodson MD Nov 23, 2016 13:49
== END 2016-11-23 16:08 | disposition home or self-care (01) ==
LOC: NEPC 08:39 → INTOOBSV 11:16 → NEDA 11:16 → NEPGCP 13:44
PROVIDERS: ADMIT Hospitalist; ATTEND Hospitalist
DX: G93.41 Metabolic encephalopathy (principal); N39.0 Urinary tract infection, site not specified; I48.2 Chronic atrial fibrillation; I69.351 Hemiplegia and hemiparesis following cerebral infarction affecting right dominant side; I12.9 Hypertensive chronic kidney disease with stage 1 through stage 4 chronic kidney disease, or unspecified chronic kidney disease; N18.2 Chronic kidney disease, stage 2 (mild); N17.9 Acute kidney failure, unspecified; E03.9 Hypothyroidism, unspecified; E78.5 Hyperlipidemia, unspecified; Z79.01 Long term (current) use of anticoagulants
CPT/HCPCS: 70450; 71010; 80048; 80053; 81001; 82550; 84443; 84484; 85007; 85025; 85027; 85610; 85730; 87077; 87086; 87186; 92526; 92610; 93005; 96361; 96374; 97162; 99285; G0378; G8987; G8988; J0696; J7030; J7040

== ENCOUNTER 2017-01-08 09:28 | Observation (INO) | payer MEDICARE ==
[~2017-01-08] VITALS: Ht 170.2 cm; Wt 72.3 kg
[2017-01-08] VITALS (8 sets, daily range): BP systolic 125–150; BP diastolic 64–76; PULSE 60–93; RESP 17–18; TEMP 97.5–98.2; O2SAT 98–100
[~2017-01-08 09:28] MED LIST changes: +LEVO.075 PO; -LEVO50TA4 PO; -MIRA3350; -MULT1CHW70; +NITR100C4 PO; -NITR50CA27 PO; -SULF20OR2 PO; -ZINCCAP; -[UNRECOGNIZED DRUG - CODE] PO
[2017-01-08] MEDS ORDERED: SODIUM CHLOR 0.9% 1000 ML INJ 1,000 ML IV SCH (09:44)
[2017-01-08] MEDS ORDERED: SODIUM CHLORIDE 0.9% FLUSH 5 ML FLUSH IV FLUSH PRN (09:45)
--- NOTE | 2017-01-08 09:59 | PD ---
HPI Chief Complaint: Altered Mental Status Time Seen by Provider: 09:44 Travel History International Travel<30 days: No Contact w/Intl Traveler<30days: No Traveled to known affect area: No History of Present Illness HPI 81-year-old male with a history of previous CVA, hypertension, hypothyroidism, who presents today after having a episode of unresponsiveness and involuntary movement. Daughter is at the bedside now states that he was at breakfast when he started shaking uncontrollably his eyes rolled back into his head and he became unresponsive. She states it lasted a few minutes. He's had previous episodes like this in the past. He has been worked up for seizures previously as well. Daughter states that when he gets urinary tract infections, he starts to shake like this at times. PFSH Past Medical History Hx Anticoagulant Therapy: Yes (eliquis ) Atrial Fibrillation: Yes Anxiety: No Depression: No Heart Rhythm Problems: Yes (AFIB) Cancer: No Cardiovascular Problems: Yes High Cholesterol: Yes Cerebrovascular Accident: Yes Diabetes: No Diminished Hearing: No Endocrine: Yes Gastrointestinal Disorders: No Hepatitis: No Hiatal Hernia: No Hypertension: Yes Immune Disorder: No Implanted Vascular Access Dvce: No Musculoskeletal: Yes Neurologic: Yes Psychiatric: No Reproductive: No Respiratory: No Thyroid Disease: Yes (HYPOTHYROID) Past Surgical History Abdominal Surgery: Yes AICD: No Appendectomy: Yes Cardiac Surgery: No Endocrine Surgery: No Eye Surgery: No Genitourinary Surgery: No Gynecologic Surgery: No Joint Replacement: No Neurologic Surgery: No Oral Surgery: No Pacemaker: No Thoracic Surgery: No Other Surgery: Yes Social History Alcohol Use: No Tobacco Use: No Substance Use: No Allergies-Medications (Allergen,Severity, Reaction): Coded Allergies: No Known Allergies (Unverified , 01/08/17) Reported Meds & Prescriptions Reported Meds & Active Scripts Active Synthroid (Levothyroxine Sodium) 75 Mcg Tab 75 Mcg PO DAILY@0600 Reported Pravastatin 80 Mg Tab 80 Mg PO DAILY Vitamin B Complex (B-Complex Vitamins) 1 Tab Metoprolol Tartrate 100 Mg Tab 100 Mg PO BID Cozaar (Losartan Potassium) 100 Mg Tab 100 Mg PO DAILY Hydrochlorothiazide 25 Mg Tab 25 Mg PO DAILY Eliquis (Apixaban) 5 Mg Tab 5 Mg PO BID Review of Systems ROS Limitations: Clinical Condition (patient is nonverbal), Other: Except as stated in HPI: all other systems reviewed are Neg General / Constitutional: Positive: Chills (questionable Reiger-type chills), No: Fever HENT: No: Rhinorrhea, Neck Stiffness Respiratory: No: Cough, Wheezing Gastrointestinal: No: Vomiting, Diarrhea Genitourinary: Positive: Other (fully catheter. Please note it was changed on Sunday), No: Decreased Urinary Output Skin: No Rash Neurologic: Positive: Syncope, Change in Mentation (unresponsiveness briefly.) Physical Exam Narrative GENERAL: Well developed well-nourished male in no acute respiratory distress. SKIN: Focused skin assessment warm/dry. HEAD: Atraumatic. Normocephalic. EYES: No scleral icterus. No injection or drainage. ENT: No nasal bleeding or discharge. Mucous membranes pink and moist. NECK: Trachea midline. No JVD. Supple. CARDIOVASCULAR: Irregularly irregular with a rate in the 60s.. No murmur appreciated. RESPIRATORY: No accessory muscle use. Clear to auscultation. Breath sounds equal bilaterally. Decreased respiratory effort. GASTROINTESTINAL: Abdomen soft, non-tender, nondistended. MUSCULOSKELETAL: Right sided contractures from his previous CVA. NEUROLOGICAL: Awake and alert. Nonverbal. Patient has deficits in his right side from previous stroke. Data Data Last Documented VS Vital Signs Date Time Temp Pulse Resp B/P Pulse Ox O2 Delivery O2 Flow Rate FiO2 01/08/17 10:54 97.8 60 17 141/64 99 Room Air Orders Complete Blood Count With Diff (01/08/17 09:44) Comprehensive Metabolic Panel (01/08/17 09:44) Urinalysis - C+S If Indicated (01/08/17 09:44) Lactic Acid Sepsis Protocol (01/08/17 09:44) Chest, Single Ap (01/08/17 09:44) Ct Brain W/O Iv Contrast(Rout) (01/08/17 09:44) Blood Glucose (01/08/17 09:44) Ecg Monitoring (01/08/17 09:44) Iv Access Insert/Monitor (01/08/17 09:44) Oximetry (01/08/17 09:44) Sodium Chloride 0.9% Flush (Ns Flush) (01/08/17 09:45) Sodium Chlor 0.9% 1000 Ml Inj (Ns 1000 M (01/08/17 09:44) Urine Culture (01/08/17 09:50) Blood Culture (01/08/17 11:10) Ceftriaxone Inj (Rocephin Inj) (01/08/17 11:15) Labs Laboratory Tests Test 01/08/17 01/08/17 01/08/17 09:45 09:50 09:52 White Blood Count 6.9 TH/MM3 Red Blood Count 4.86 MIL/MM3 Hemoglobin 14.0 GM/DL Hematocrit 42.8 % Mean Corpuscular Volume 88.2 FL Mean Corpuscular Hemoglobin 28.8 PG Mean Corpuscular Hemoglobin 32.6 % Concent Red Cell Distribution Width 14.6 % Platelet Count 182 TH/MM3 Mean Platelet Volume 10.5 FL Neutrophils (%) (Auto) 37.8 % Lymphocytes (%) (Auto) 54.5 % Monocytes (%) (Auto) 5.6 % Eosinophils (%) (Auto) 1.6 % Basophils (%) (Auto) 0.5 % Neutrophils # (Auto) 2.6 TH/MM3 Lymphocytes # (Auto) 3.7 TH/MM3 Monocytes # (Auto) 0.4 TH/MM3 Eosinophils # (Auto) 0.1 TH/MM3 Basophils # (Auto) 0.0 TH/MM3 CBC Comment DIFF FINAL Differential Comment Sodium Level 142 MEQ/L Potassium Level 3.4 MEQ/L Chloride Level 110 MEQ/L Carbon Dioxide Level 20.2 MEQ/L Anion Gap 12 MEQ/L Blood Urea Nitrogen 21 MG/DL Creatinine 1.35 MG/DL Estimat Glomerular Filtration 62 ML/MIN Rate Random Glucose 135 MG/DL Calcium Level 8.1 MG/DL Total Bilirubin 0.6 MG/DL Aspartate Amino Transf 14 U/L (AST/SGOT) Alanine Aminotransferase 12 U/L (ALT/SGPT) Alkaline Phosphatase 61 U/L Total Protein 6.6 GM/DL Albumin 3.4 GM/DL Urine Color YELLOW Urine Turbidity CLEAR Urine pH 7.0 Urine Specific [place] 1.013 Urine Protein 30 mg/dL Urine Glucose (UA) NEG mg/dL Urine Ketones NEG mg/dL Urine Occult Blood TRACE Urine Nitrite POS Urine Bilirubin NEG Urine Urobilinogen LESS THAN 2.0 MG/DL Urine Leukocyte Esterase MOD Urine RBC 6 /hpf Urine WBC 9 /hpf Urine Squamous Epithelial 1 /hpf Cells Urine Bacteria OCC /hpf Urine Hyaline Casts 2 /lpf Urine Mucus FEW /lpf Microscopic Urinalysis Comment CATH-CULTURE IND Lactic Acid Level 6.5 mmol/L MDM Medical Decision Making Medical Screen Exam Complete: Yes Emergency Medical Condition: Yes Differential Diagnosis Seizure versus syncope versus right ureter chills versus metabolic derangement Narrative Course 81-year-old male with a history of CVA, and doing Ayon catheter, presents here after having an episode of unresponsiveness. Patient was at the breakfast table when he went unresponsive but prior to that had an episode of tonic- clonic movement in his upper extremities. He's had this previously when he's had a UTI. Concern is this may be atypical seizure. Urinalysis shows evidence of a UTI. He also has a lactic acid of 6.5. Blood cultures have been ordered as well as urine cultures. He's been started on Rocephin, 1 g I V times one dose. There is a call out to the [facility] admitting service. Question will be whether or not to bring him under observation versus admission. Patient's electrolyte are also abnormal with an elevated BUN and creatinine. He's been started on IVs fluids in the emergency department. Sepsis Criteria SIRS Criteria (2 or more): Heart rate over 90 Severe Sepsis (+one): Lactate >2 Diagnosis Primary Impression: UTI (urinary tract infection) [place] MD Jan 08, 2017 09:58
[2017-01-08 10:08] LABS: AUTOMATED NEUTROPHIL # 2.6 TH/MM3 (1.8-7.7); BASOPHIL % 0.5 % (0.0-2.0); EOSINOPHIL # 0.1 TH/MM3 (0-0.4); EOSINOPHIL % 1.6 % (0.0-4.0); HEMATOCRIT 42.8 % (39.0-51.0); HEMO FLAGS DIFF FINAL; LYMPH % 54.5 % (9.0-44.0); LYMPHOCYTE # 3.7 TH/MM3 (1.0-4.8); MEAN CELL VOLUME 88.2 FL (80.0-100.0); MEAN CORPUSCULAR HEMOGLOBIN 28.8 PG (27.0-34.0); MEAN CORPUSCULAR HGB CONC 32.6 % (32.0-36.0); MONO % 5.6 % (0.0-8.0); NEUT % 37.8 % (16.0-70.0); PLATELET COUNT 182 TH/MM3 (150-450); RED BLOOD COUNT 4.86 MIL/MM3 (4.50-5.90); RED CELL DISTRIBUTION WIDTH 14.6 % (11.6-17.2); WHITE BLOOD COUNT 6.9 TH/MM3 (4.0-11.0)
[2017-01-08 10:22] LABS: ALT (GPT) 12 U/L (12-78); ANION GAP 12 MEQ/L (5-15); AST (GOT) 14 U/L (15-37); BICARBONATE 20.2 MEQ/L (21.0-32.0); BLOOD UREA NITROGEN 21 MG/DL (7-18); CHLORIDE 110 MEQ/L (98-107); GLOMERULAR FILTRATION RATE 62 ML/MIN (>89); POTASSIUM 3.4 MEQ/L (3.5-5.1); SODIUM (NA) 142 MEQ/L (136-145)
[2017-01-08 10:25] LABS: ALKALINE PHOSPHATASE 61 U/L (45-117); TOTAL BILIRUBIN ADULT 0.6 MG/DL (0.2-1.0)
[2017-01-08 10:26] LABS: BACTERIA, URINE OCC /hpf; BLOOD, URINE TRACE (NEG); GLUCOSE,URINE NEG (NEG); HYALINE CAST, URINE 2 /lpf (RARE); KETONE, URINE NEG (NEG); MUCUS URINE FEW /lpf (OCC); SQUAMOUS EPITHELIAL CELL URINE 1 /hpf (0-5); URINE COLOR YELLOW (YELLW/STRAW)
--- NOTE | 2017-01-08 10:35 | RADRPT ---
EXAM DATE/TIME: 01/08/2017 10:11 [facility] COMPARISON: CT BRAIN W/O CONTRAST, April 04, 2015, 20:04. CT BRAIN W/O CONTRAST, November 21, 2016, 9:57. INDICATIONS : Altered mental status. RADIATION DOSE: 33.28 CTDIvol (mGy) MEDICAL HISTORY : Hypothyroidism. Cardiovascular disease Hypertension. SURGICAL HISTORY : Appendectomy. ENCOUNTER: Initial ACUITY: 1 day PAIN SCALE: Non-responsive LOCATION: cranial TECHNIQUE: Multiple contiguous axial images were obtained of the head. Using automated exposure control and adj ustment of the mA and/or kV according to patient size, radiation dose was kept as low as reasonably a chievable to obtain optimal diagnostic quality images. DICOM format image data is available electro nically for review and comparison. FINDINGS: CEREBRUM: Large area of encephalomalacia involving the left middle cerebral artery distribution is again noted and appear stable. There are no findings suspicious for an acute infarct or hemorrhage. There is no e vidence of developing mass effect. POSTERIOR FOSSA: The cerebellum and brainstem are intact. The 4th ventricle is midline. The cerebellopontine angle i s unremarkable. EXTRACRANIAL: The visualized portion of the orbits is intact. SKULL: The calvaria is intact. No evidence of skull fracture. CONCLUSION: Stable large chronic left MCA infarct. No acute infarct, hemorrhage, mass effect or edema. Charles Acuña MD on January 08, 2017 at 10:32 Board Certified Radiologist. This report was verified electronically.
--- NOTE | 2017-01-08 10:38 | RADRPT ---
EXAM DATE/TIME: 01/08/2017 09:47 [facility] COMPARISON: CHEST SINGLE AP, November 21, 2016, 9:43. INDICATIONS : Syncope. Possible seizure. MEDICAL HISTORY : Cardiovascular disease. Hypertension SURGICAL HISTORY : None. ENCOUNTER: Initial ACUITY: 1 day PAIN SCORE: Non-responsive. LOCATION: Bilateral chest FINDINGS: There is mild elevation of the left hemidiaphragm with gastric bubble projecting into the chest, the right lung is clear. Heart is mildly enlarged; the vascularity is normal. CONCLUSION: Moderate gaseous distention with elevation of the left hemidiaphragm. The lungs are clear. Tom Yanes MD FACR on January 08, 2017 at 10:35 Board Certified Radiologist. This report was verified electronically.
[2017-01-08 10:40] LABS: COMMENT (UR) CATH-CULTURE IND; CULTURE IF INDICATED CATH CULTURE IND; NITRITE,URINE POS (NEG)
[2017-01-08] MEDS ORDERED: cefTRIAXone INJ 1,000 MG in SODIUM CHLORIDE 0.9% INJ 100 ML IV ONE (11:15)
[2017-01-08] MEDS ORDERED: NALOXONE HCL 0.4 MG/ML AMP IV PRN (11:45)
[2017-01-08] MEDS ORDERED: LORazepam 2 MG/ML VIAL IV PRN (11:45)
[2017-01-08] MEDS ORDERED: BISACODYL 10 MG SUPP RECTAL PRN (11:45)
[2017-01-08] MEDS ORDERED: ACETAMINOPHEN 325 MG TAB PO PRN (11:45)
[2017-01-08] MEDS ORDERED: LACTULOSE SYRUP 20 GM/30 ML CUP PO PRN (11:45)
[2017-01-08] MEDS ORDERED: SENNOSIDES 8.6 MG TAB PO PRN (11:45)
[2017-01-08] MEDS ORDERED: SODIUM CHLORIDE 0.9% FLUSH 10 ML FLUSH IV FLUSH PRN ×2 (11:45)
[2017-01-08] MEDS ORDERED: ACETAMINOPHEN/HYDROcodone 325 MG/5 MG TAB PO PRN (11:45)
[2017-01-08] MEDS ORDERED: ONDANSETRON HCL 4 MG/2 ML VIAL IVP PRN (11:45)
[2017-01-08] MEDS ORDERED: MAGNESIUM HYDROXIDE SUSP 30 ML CUP PO PRN (11:45)
--- NOTE | 2017-01-08 12:05 | HHI.HP ---
[facility] Samuel Alonso, DO Admission Diagnosis uti, elevated lactate, rule out seizure, hx of cva Diagnoses: (1) UTI (urinary tract infection) Diagnosis: Principal (2) Acute encephalopathy Diagnosis: Secondary (3) HTN (hypertension) Diagnosis: Secondary (4) Stroke Diagnosis: Secondary (5) Hypothyroidism (6) Hyperlipidemia Diagnosis: Secondary (7) Seizure Diagnosis: Principal Chief Complaint: shaking and AMS Travel History International Travel<30 Days: No Contact w/Intl Traveler <30 Da: No Traveled to Known Affected Are: No History of Present Illness This is a 81 y/o male with history of atrial fibrillation, HTN, hypothyroidism, CVA with right sided residual weakness, and urinary retention with chronic indwelling carrasco catheter in place, was brought to ER with altered mental status and shaking. Patient has history of CVA with expressive aphasia unable to provide meaningful information therefore information gathered from physical exam and prior computerized charting. Per ER documentation: patient presents today after having an episode of unresponsiveness and involuntary movement. Daughter who was at bedside earlier reported that he was at breakfast when he started shaking uncontrollably his eyes rolled back into his head and he became unresponsive. The episode lasted a few minutes. He's had previous episodes like this in the past. Daughter stated that when he gets urinary tract infections. UA reviewed and is consistent with UTI, LA also elevate at 6.5 consistent with seizure activity. Patient offers no complaints at this time. She remains nonverbal and does not really follow commands Review of Systems ROS Limitations: Clinical Condition, Poor Historian, Other (aphasic) Past Family Social History Past Medical History atrial fibrillation on chronic anticoagulation CVA urinary retention HTN hypothyroidism CAD Peripheral vascular occlusive disease status post carotid endarterectomy Hyperlipidemia Past Surgical History carotid endarterectomy appendectomy Reported Medications Synthroid (Levothyroxine Sodium) 75 Mcg Tab 75 Mcg PO DAILY@0600 Pravastatin 80 Mg Tab 80 Mg PO DAILY Vitamin B Complex (B-Complex Vitamins) 1 Tab Metoprolol Tartrate 100 Mg Tab 100 Mg PO BID Cozaar (Losartan Potassium) 100 Mg Tab 100 Mg PO DAILY Hydrochlorothiazide 25 Mg Tab 25 Mg PO DAILY Eliquis (Apixaban) 5 Mg Tab 5 Mg PO BID Allergies: Coded Allergies: No Known Allergies (Unverified , 01/08/17) Active Ordered Medications Current Medications Medications (Trade) Dose Ordered Sig/Alana Route Start Time Stop Time Status Last Admin (NS Flush) 2 ml UNSCH PRN IV FLUSH 01/08/17 09:45 01/08/17 09:56 (Eliquis) 5 mg BID PO 01/08/17 21:00 UNV (Synthroid) 75 mcg DAILY@0600 PO 01/09/17 06:00 UNV (Lopressor) 100 mg BID PO 01/08/17 21:00 UNV Pravastatin Sodium 80 mg 80 mg DAILY PO 01/09/17 09:00 UNV (NS 1000 ml Inj) 1,000 ml @ 100 mls/hr Q10H IV 01/08/17 12:00 (NS Flush) 2 ml UNSCH PRN IV FLUSH 01/08/17 11:45 UNV (NS Flush) 2 ml BID IV FLUSH 01/08/17 21:00 UNV (Tylenol) 650 mg Q4H PRN PO 01/08/17 11:45 UNV (Zofran Inj) 4 mg Q6H PRN IVP 01/08/17 11:45 UNV (Mena 5-325 Mg) 1 tab Q4H PRN PO 01/08/17 11:45 UNV (Narcan Inj) 0.4 mg UNSCH PRN IV 01/08/17 11:45 UNV (Tania-Colace) 1 tab BID PO 01/08/17 21:00 UNV (Milk Of Magnesia Liq) 30 ml Q12H PRN PO 01/08/17 11:45 UNV (Senokot) 17.2 mg Q12H PRN PO 01/08/17 11:45 UNV (Dulcolax Supp) 10 mg DAILY PRN RECTAL 01/08/17 11:45 (Lactulose Liq) 30 ml DAILY PRN PO 01/08/17 11:45 (NS Flush) 2 ml UNSCH PRN IV FLUSH 01/08/17 11:45 UNV (NS Flush) 2 ml BID IV FLUSH 01/08/17 21:00 UNV Lorazepam 2 mg 2 mg UNSCH PRN IV 01/08/17 11:45 (Rocephin Inj/NS Inj) 100 ml @ 200 mls/hr Q24H IV 01/09/17 11:00 UNV Family History heart disease in sister. Social History no report of tobacco or ETOH use. lives at home with daughter Physical Exam Vital Signs Vital Signs Date Time Temp Pulse Resp B/P Pulse Ox O2 Delivery O2 Flow Rate FiO2 01/08/17 10:54 97.8 60 17 141/64 99 Room Air 01/08/17 09:47 17 98 Room Air 01/08/17 09:35 97.7 93 18 134/70 100 01/08/17 09:35 93 17 Physical Exam GENERAL: elderly male, in no acute distress. SKIN: No rashes, ecchymoses or lesions. Cool and dry. HEAD: Atraumatic. Normocephalic. No temporal or scalp tenderness. EYES: Extraocular motions intact. No scleral icterus. No injection or drainage. CARDIOVASCULAR: IRRegular rate and rhythm without murmurs, gallops, or rubs. S1 -S2 no S3 or S4 no heave or thrill RESPIRATORY: Clear to auscultation. Breath sounds equal bilaterally. No wheezes , rales, or rhonchi. GASTROINTESTINAL: Abdomen soft, non-tender, nondistended. GENITOURINARY: chronic indwelling carrasco catheter in place MUSCULOSKELETAL: Extremities without clubbing, cyanosis, or edema. No joint tenderness, effusion, or edema noted. No calf tenderness. Negative Homans sign bilaterally. BLE muscle atrophy noted right side much more weak than left side NEUROLOGICAL: Awake and alert. prior CVA expressive aphasia with chronic right- sided weakness. Not able to assess insight and judgment or mood Laboratory Laboratory Tests Test 01/08/17 01/08/17 01/08/17 09:45 09:50 09:52 White Blood Count 6.9 Red Blood Count 4.86 Hemoglobin 14.0 Hematocrit 42.8 Mean Corpuscular Volume 88.2 Mean Corpuscular Hemoglobin 28.8 Mean Corpuscular Hemoglobin 32.6 Concent Red Cell Distribution Width 14.6 Platelet Count 182 Mean Platelet Volume 10.5 Neutrophils (%) (Auto) 37.8 Lymphocytes (%) (Auto) 54.5 Monocytes (%) (Auto) 5.6 Eosinophils (%) (Auto) 1.6 Basophils (%) (Auto) 0.5 Neutrophils # (Auto) 2.6 Lymphocytes # (Auto) 3.7 Monocytes # (Auto) 0.4 Eosinophils # (Auto) 0.1 Basophils # (Auto) 0.0 CBC Comment DIFF FINAL Differential Comment Sodium Level 142 Potassium Level 3.4 Chloride Level 110 Carbon Dioxide Level 20.2 Anion Gap 12 Blood Urea Nitrogen 21 Creatinine 1.35 Estimat Glomerular Filtration 62 Rate Random Glucose 135 Calcium Level 8.1 Total Bilirubin 0.6 Aspartate Amino Transf 14 (AST/SGOT) Alanine Aminotransferase 12 (ALT/SGPT) Alkaline Phosphatase 61 Total Protein 6.6 Albumin 3.4 Urine Color YELLOW Urine Turbidity CLEAR Urine pH 7.0 Urine Specific [place] 1.013 Urine Protein 30 Urine Glucose (UA) NEG Urine Ketones NEG Urine Occult Blood TRACE Urine Nitrite POS Urine Bilirubin NEG Urine Urobilinogen LESS THAN 2.0 Urine Leukocyte Esterase MOD Urine RBC 6 Urine WBC 9 Urine Squamous Epithelial 1 Cells Urine Bacteria OCC Urine Hyaline Casts 2 Urine Mucus FEW Microscopic Urinalysis Comment CATH-CULTURE IND Lactic Acid Level 6.5 Date/Time Procedure Status Source Growth 01/08/17 09:50 Urine Culture Received Urine Catheterized Urine Pending Result Diagram: 01/08/1745 01/08/17944 Imaging Last Impressions Head CT 01/08/17943 Signed Impressions: Service Date/Time: Sunday, January 08, 2017 10:11 - CONCLUSION: Stable large chronic left MCA infarct. No acute infarct, hemorrhage, mass effect or edema. Charles Acuña MD Chest X-Ray 01/08/17943 Signed Impressions: Service Date/Time: Sunday, January 08, 2017 09:47 - CONCLUSION: Moderate gaseous distention with elevation of the left hemidiaphragm. The lungs are clear. Tom Yanes MD FACR Assessment and Plan Problem List: (1) UTI (urinary tract infection) ICD Code: N39.0 Status: Acute (2) S/P carotid endarterectomy ICD Code: Z98.89 Status: Acute (3) Acute encephalopathy ICD Code: G93.40 Status: Acute (4) Urinary retention ICD Code: R33.9 Status: Acute (5) Seizure ICD Code: R56.9 Status: Acute (6) Hypothyroidism ICD Code: E03.9 Status: Acute (7) Hyperlipidemia ICD Code: E78.5 Status: Acute (8) Atrial fibrillation ICD Code: I48.91 Status: Acute Assessment and Plan This is a 81 y/o male with history of atrial fibrillation, HTN, hypothyroidism, CVA with right sided residual weakness, and urinary retention with chronic indwelling carrasco catheter in place, was brought to ER with after having an episode of unresponsiveness and involuntary movement. Patient is currently disoriented 3 unable to provide meaningful information therefore information gathered from physical exam and prior computerized charting. possible Seizure Lactic acidosis 6.5 consistent with seizure activity CT head reviewed and reveals: Stable large chronic left MCA infarct. No acute infarct, hemorrhage, mass effect or edema. serial neuro-checks seizure precautions EEG consult neurology UTI- catheter-associated ( carrasco in place due to chronic urinary retention) UA reviewed consistent with UTI- urine culture pending change carrasco cath IV Rocephin. atrial fibrillation- rate controlled continue home metoprolol 100 mg twice a day and eliquis history of CVA; continue home pravastatin 80 mg by mouth daily and eliquis consult PT/OT ALEXIS on chronic renal insufficiency- gentle IV hydration and repeat BMP in am hypertension- Stable resume home meds and will monitor hypothyroidism resume home Synthroid 75 mcg daily DVT prophylaxis/atrial fibrillation prophylaxis- on eliquis Discussed with patient, nursing, ER provider and Dr. Bush The exam, history, and the medical decision-making described in the above note were completed with the assistance of the mid-level provider. I reviewed and agree with the findings presented. I attest that I had a [id number] encounter with the patient on the same day, and personally performed and documented my assessment and findings in the medical record. Code Status Full code Discussed Condition With Case has been discussed with the emergency room physician, ER nursing, physician assistant cross country coach, and the patient Blacna Knapp Jan 08, 2017 12:05 Tom Bush DO Jan 08, 2017 12:55
[2017-01-08 12:11] LABS: LACTIC ACID GHOST NOT REPORTABLE
[2017-01-08] MEDS: SODIUM CHLOR 0.9% 1000 ML INJ 1,000 ML IV SCH ×2 (12:20→22:00)
[2017-01-08] MEDS ORDERED: levETIRAcetam 1000 MG INJ 100 ML IV ONE (15:15)
--- NOTE | 2017-01-08 15:39 | EKG ---
Date Performed: 01/08/2017 Time Performed: 09:39:39 PTAGE: 81 years EKG: ATRIAL FIBRILLATION POSSIBLE RIGHT VENTRICULAR CONDUCTION DELAY POSSIBLE LEFT VENTRICULAR H YPERTROPHY ST DEVIATION AND MARKED T-WAVE ABNORMALITY, CONSIDER ANTEROLATERAL ISCHEMIA ST DEVIATION A ND MODERATE T-WAVE ABNORMALITY, CONSIDER INFERIOR ISCHEMIA PROLONGED CORRECTED QT INTERVAL ABNORMAL E CG PREVIOUS TRACING : 11/21/2016 08.59 DOCTOR: Raul Hansen Interpretating Date/Time 01/08/2017 15:38:02
--- NOTE | 2017-01-08 15:41 | MB ---
cc: NURIS BERNABE M.D. DATE OF CONSULTATION: 01/08/2017 HISTORY OF PRESENT ILLNESS A 81-year-old with history of presumed seizure. The patient was brought to the hospital this morning, he was observed to have had an episode of unresponsiveness and involuntary movements, shaking and eyes rolled up. He may have had previous episodes in the past along with some urinary tract infectious process. PAST MEDICAL HISTORY 1. He has a history of large stroke, left hemisphere with aphasia and right hemiparesis. 2. History of atrial fibrillation on chronic anticoagulation. MEDICATION 1. Eliquis. 2. HCTZ. 3. Cozaar. 4. Metoprolol. 5. Pravastatin. 6. Synthroid. NEUROLOGICAL EXAMINATION On exam the patient was awakened easily, no distress, obviously aphasic, unable to express himself and unable to follow simple commands. Rarely he did count fingers, especially when I flexed the fingers on the left visual field. He has some spastic right hemiparesis arm more than leg. Pupils about the same size, reactive. Reflexes brisker on the right, plantar extensor response on the right. IMAGING STUDIES The CT brain shows stable left middle cerebral artery encephalomalacia. LABORATORY DATA CBC is essentially normal. Sodium 142, potassium 3.4, BUN 21, creatinine 1.35, glucose 135. Lactic acid 6.5. ASSESSMENT Probable seizure. This may have happened in the past along with acute UTI which appears to be another recurrence as well. I am going to start him on Keppra and otherwise he seems to be back to baseline. I will follow the neurological course. Thank you for asking us to assist in his care. Nuris Bernabe MD OFC/TLL /3:18 PM /3:31 PM
--- NOTE | 2017-01-08 17:07 | OTSOAPIP ---
PATIENT IN TRANSIT TO NEW ROOM WILL COMPLETE IN AM. Therapist: Lyn Hi OTR/L Signature on file
[2017-01-08 18:54] LABS: MAGNESIUM 1.9 MG/DL (1.5-2.5)
[2017-01-08] MEDS ORDERED: METOPROLOL TARTRATE 100 MG TAB PO SCH (21:00)
[2017-01-08] MEDS ORDERED: SODIUM CHLORIDE 0.9% FLUSH 10 ML FLUSH IV FLUSH SCH (21:00)
[2017-01-08] MEDS: SODIUM CHLORIDE 0.9% FLUSH 10 ML FLUSH IV FLUSH SCH (21:00)
[2017-01-08] MEDS: levETIRAcetam 500 MG TAB PO SCH (22:31)
[2017-01-08] MEDS: APIXABAN 5 MG TABLET PO SCH (22:31)
[2017-01-08] MEDS: DOCUSATE SODIUM 50 MG/SENNA 8.6 MG TAB PO SCH (22:31)
[2017-01-09] VITALS (10 sets, daily range): BP systolic 124–162; BP diastolic 58–76; PULSE 38–91; RESP 18–19; TEMP 97.3–99; O2SAT 92–99
[2017-01-09] MEDS: LEVOTHYROXINE SODIUM 75 MCG TAB PO SCH (06:00)
[2017-01-09] MEDS: SODIUM CHLOR 0.9% 1000 ML INJ 1,000 ML IV SCH ×2 (08:00→18:00)
[2017-01-09] MEDS: APIXABAN 5 MG TABLET PO SCH ×2 (08:50→21:17)
[2017-01-09] MEDS: DOCUSATE SODIUM 50 MG/SENNA 8.6 MG TAB PO SCH ×2 (08:50→21:18)
[2017-01-09] MEDS: levETIRAcetam 500 MG TAB PO SCH ×2 (08:50→21:17)
[2017-01-09] MEDS: PRAVASTATIN SOD 80 MG TAB PO SCH (08:51)
[2017-01-09] MEDS: SODIUM CHLORIDE 0.9% FLUSH 10 ML FLUSH IV FLUSH SCH ×2 (09:00→21:00)
--- NOTE | 2017-01-09 09:11 | MG ---
cc: NURIS JOSEPH M.D. Lab No: Date: 01/08/2017 Age: 81 Sex: M Race: __ REQUESTING PHYSICIAN Dr. Bush INDICATIONS An EEG was obtained on this 81-year-old patient with a history of being evaluated for decreased responsiveness. DESCRIPTION This EEG shows a lot of artifact. There is bi-hemisphere attenuation and slowing possibly worse on the left than the right. There is awake and asleep in this EEG recording. Photic stimulation showed no change. INTERPRETATION Abnormal EEG because of continuous bilateral slowing possibly worse on the left than right. The findings suggest a diffuse disturbance of cerebral function and possible left hemisphere structural abnormality. No epileptiform feature is present. MD MIKAL Pugh/DJVladislav /7:47 PM /9:04 AM
[2017-01-09] MEDS ORDERED: cefTRIAXone INJ 1,000 MG in SODIUM CHLORIDE 0.9% INJ 100 ML IV SCH (11:00)
[2017-01-09 11:42] LABS: AUTOMATED NEUTROPHIL # 4.5 TH/MM3 (1.8-7.7); BASOPHIL % 0.4 % (0.0-2.0); EOSINOPHIL # 0.1 TH/MM3 (0-0.4); EOSINOPHIL % 0.9 % (0.0-4.0); HEMATOCRIT 40.9 % (39.0-51.0); HEMO FLAGS DIFF FINAL; LYMPH % 23.2 % (9.0-44.0); LYMPHOCYTE # 1.5 TH/MM3 (1.0-4.8); MEAN CELL VOLUME 87.1 FL (80.0-100.0); MEAN CORPUSCULAR HEMOGLOBIN 28.3 PG (27.0-34.0); MEAN CORPUSCULAR HGB CONC 32.5 % (32.0-36.0); MONO % 6.3 % (0.0-8.0); NEUT % 69.2 % (16.0-70.0); PLATELET COUNT 161 TH/MM3 (150-450); RED CELL DISTRIBUTION WIDTH 14.6 % (11.6-17.2); WHITE BLOOD COUNT 6.4 TH/MM3 (4.0-11.0)
[2017-01-09 12:06] LABS: ALT (GPT) 12 U/L (12-78); ANION GAP 9 MEQ/L (5-15); AST (GOT) 12 U/L (15-37); BICARBONATE 24.5 MEQ/L (21.0-32.0); BLOOD UREA NITROGEN 14 MG/DL (7-18); CHLORIDE 108 MEQ/L (98-107); GLOMERULAR FILTRATION RATE 79 ML/MIN (>89); MAGNESIUM 1.8 MG/DL (1.5-2.5); POTASSIUM 3.3 MEQ/L (3.5-5.1); SODIUM (NA) 141 MEQ/L (136-145)
[2017-01-09 12:15] LABS: ALKALINE PHOSPHATASE 67 U/L (45-117); FREE T4 1.09 NG/DL (0.76-1.46); TOTAL BILIRUBIN ADULT 0.5 MG/DL (0.2-1.0)
--- NOTE | 2017-01-09 14:09 | HHI.PR ---
Subjective Remarks Follow up for suspected seizure activity. Patient is alert, follows some commands but no coherent speech. Daughter at bedside. No fever, chills. Objective Vitals Vital Signs Date Time Temp Pulse Resp B/P Pulse Ox O2 Delivery O2 Flow Rate FiO2 01/09/17 12:32 98.1 61 18 142/63 97 01/09/17 10:37 92 21 01/09/17 08:16 97.3 58 18 142/67 96 01/09/17 04:00 97.7 53 18 136/68 96 01/09/17 04:00 98.6 54 18 127/62 99 01/09/17 02:14 38 01/09/17 00:00 98.3 51 18 125/59 99 01/09/17 00:00 98.3 51 18 125/59 99 01/08/17 20:00 98.2 71 18 145/65 98 01/08/17 16:37 97.5 76 18 150/71 98 01/08/17 14:45 97.8 81 17 128/76 99 I/O 01/08/17 01/08/17 01/08/17 01/09/17 01/09/17 01/09/17 07:00 15:00 23:00 07:00 15:00 23:00 Intake Total 200 ml 1022 ml Output Total 250 ml 1200 ml Balance 200 ml -250 ml -1200 ml 1022 ml Intake Oral 200 ml IV Total 1022 ml Output Urine Total 250 ml 1200 ml Result Diagram: 01/09/17 1120 01/09/17 1120 Imaging Last Impressions Head CT 01/08/17943 Signed Impressions: Service Date/Time: Sunday, January 08, 2017 10:11 - CONCLUSION: Stable large chronic left MCA infarct. No acute infarct, hemorrhage, mass effect or edema. Charles Acuña MD Chest X-Ray 01/08/17943 Signed Impressions: Service Date/Time: Sunday, January 08, 2017 09:47 - CONCLUSION: Moderate gaseous distention with elevation of the left hemidiaphragm. The lungs are clear. Tom Yanes MD FACR Objective Remarks GENERAL: Alert, NAD. Carrasco cath in place. SKIN: Warm and dry. HEAD: Normocephalic. EYES: No scleral icterus. No injection or drainage. NECK: Supple, trachea midline. No JVD or lymphadenopathy. CARDIOVASCULAR: Regular rate and rhythm without murmurs, gallops, or rubs. RESPIRATORY: Breath sounds equal bilaterally. No accessory muscle use. GASTROINTESTINAL: Abdomen soft, non-tender, nondistended. MUSCULOSKELETAL: No cyanosis, or edema. BACK: Nontender without obvious deformity. No CVA tenderness. Procedures EEG 01/08/2017 INTERPRETATION Abnormal EEG because of continuous bilateral slowing possibly worse on the left than right. The findings suggest a diffuse disturbance of cerebral function and possible left hemisphere structural abnormality. No epileptiform feature is present. A/P Problem List: (1) UTI (urinary tract infection) ICD Code: N39.0 Status: Acute (2) S/P carotid endarterectomy ICD Code: Z98.89 Status: Acute (3) Acute encephalopathy ICD Code: G93.40 Status: Acute (4) Urinary retention ICD Code: R33.9 Status: Acute (5) Seizure ICD Code: R56.9 Status: Acute (6) Hypothyroidism ICD Code: E03.9 Status: Acute (7) Hyperlipidemia ICD Code: E78.5 Status: Acute (8) Atrial fibrillation ICD Code: I48.91 Status: Acute Assessment and Plan This is a 81 y/o male with history of atrial fibrillation, HTN, hypothyroidism, CVA with right sided residual weakness, and urinary retention with chronic indwelling carrasco catheter in place, was brought to ER with after having an episode of unresponsiveness and involuntary movement. Patient is currently disoriented 3 unable to provide meaningful information therefore information gathered from physical exam and prior computerized charting. possible Seizure Lactic acidosis 6.5 consistent with seizure activity CT head reviewed and reveals: Stable large chronic left MCA infarct. No acute infarct, hemorrhage, mass effect or edema. serial neuro-checks seizure precautions Neurology recommends continuation of Keppra. UTI- catheter-associated ( carrasco in place due to chronic urinary retention) UA reviewed consistent with UTI- urine culture shows mixed dada growth. change carrasco cath We can observe without IV Rocephin. atrial fibrillation- rate controlled continue Apixaban 5mg BID Reduce metoprolol to 25mg BID - HOLD if heart rate < 65 or Systolic BP < 120 history of CVA; continue home pravastatin 80 mg by mouth daily and eliquis consult PT/OT ALEXIS on chronic renal insufficiency- Improved. Creatinine 1.35 --> 1.09. hypertension- Stable Continue home meds and will monitor hypothyroidism Continue home Synthroid 75 mcg daily DVT prophylaxis/atrial fibrillation prophylaxis- on Fatou Lopes DO Jan 09, 2017 14:09
[2017-01-09 17:03] LABS: HEMOGLOBIN A1b 1.8 %; HEMOGLOBIN LA1C 2.3 %; HEMOGLOBIN P3 5.9 %
--- NOTE | 2017-01-09 19:45 | HHI.PR ---
Review/Management Daily Summary 01/09 awake and alert little more speech today counts fingers royer continue keppra as is call prn neuro Subjective Subjective Comments No acute events reported Active Medications Current Medications Medications (Trade) Dose Ordered Sig/Alana Route Start Time Stop Time Status Last Admin (Eliquis) 5 mg BID PO 01/08/17 21:00 01/09/17 08:50 (Synthroid) 75 mcg DAILY@0600 PO 01/09/17 06:00 01/09/17 06:00 (Lopressor) 100 mg BID PO 01/08/17 21:00 Hold 01/08/17 22:31 Pravastatin Sodium 80 mg 80 mg DAILY PO 01/09/17 09:00 01/09/17 08:51 (NS 1000 ml Inj) 1,000 ml @ 100 mls/hr Q10H IV 01/08/17 12:00 01/08/17 12:20 (NS Flush) 2 ml UNSCH PRN IV FLUSH 01/08/17 11:45 (NS Flush) 2 ml BID IV FLUSH 01/08/17 21:00 (Tylenol) 650 mg Q4H PRN PO 01/08/17 11:45 (Zofran Inj) 4 mg Q6H PRN IVP 01/08/17 11:45 (Isabella 5-325 Mg) 1 tab Q4H PRN PO 01/08/17 11:45 (Narcan Inj) 0.4 mg UNSCH PRN IV 01/08/17 11:45 (Tania-Colace) 1 tab BID PO 01/08/17 21:00 01/09/17 08:50 (Milk Of Magnesia Liq) 30 ml Q12H PRN PO 01/08/17 11:45 (Senokot) 17.2 mg Q12H PRN PO 01/08/17 11:45 (Dulcolax Supp) 10 mg DAILY PRN RECTAL 01/08/17 11:45 (Lactulose Liq) 30 ml DAILY PRN PO 01/08/17 11:45 Lorazepam 2 mg 2 mg UNSCH PRN IV 01/08/17 11:45 (Rocephin Inj/NS Inj) 100 ml @ 200 mls/hr Q24H IV 01/09/17 11:00 01/09/17 13:01 (Keppra) 500 mg BID PO 01/08/17 21:00 01/09/17 08:50 Allergies Allergies Coded Allergies No Known Allergies (Unverified01/08/17) Exam I&O / VS 01/08/17 01/08/17 01/09/17 15:00 23:00 07:00 Intake Total 200 ml Output Total 250 ml 1200 ml Balance 200 ml -250 ml -1200 ml Intake Oral 200 ml Output Urine Total 250 ml 1200 ml Vital Signs Date Time Temp Pulse Resp B/P Pulse Ox O2 Delivery O2 Flow Rate FiO2 01/09/17 17:58 96 21 01/09/17 16:08 98.4 74 18 158/72 96 01/09/17 12:32 98.1 61 18 142/63 97 01/09/17 10:37 92 21 01/09/17 08:16 97.3 58 18 142/67 96 01/09/17 04:00 97.7 53 18 136/68 96 01/09/17 04:00 98.6 54 18 127/62 99 01/09/17 02:14 38 01/09/17 00:00 98.3 51 18 125/59 99 01/09/17 00:00 98.3 51 18 125/59 99 01/08/17 20:00 98.2 71 18 145/65 98 Objective Radiology Results Last [address] 01/08/1744 Signed Impressions: Service Date/Time: Sunday, January 08, 2017 10:11 - CONCLUSION: Stable large chronic left MCA infarct. No acute infarct, hemorrhage, mass effect or edema. Charles Acuña MD Chest X-Ray 01/08/17943 Signed Impressions: Service Date/Time: Sunday, January 08, 2017 09:47 - CONCLUSION: Moderate gaseous distention with elevation of the left hemidiaphragm. The lungs are clear. Tom Yanes MD FACR Micro and Labs Laboratory Tests Test 01/09/17 11:20 White Blood Count 6.4 Red Blood Count 4.70 Hemoglobin 13.3 Hematocrit 40.9 Mean Corpuscular Volume 87.1 Mean Corpuscular Hemoglobin 28.3 Mean Corpuscular Hemoglobin 32.5 Concent Red Cell Distribution Width 14.6 Platelet Count 161 Mean Platelet Volume 10.2 Neutrophils (%) (Auto) 69.2 Lymphocytes (%) (Auto) 23.2 Monocytes (%) (Auto) 6.3 Eosinophils (%) (Auto) 0.9 Basophils (%) (Auto) 0.4 Neutrophils # (Auto) 4.5 Lymphocytes # (Auto) 1.5 Monocytes # (Auto) 0.4 Eosinophils # (Auto) 0.1 Basophils # (Auto) 0.0 CBC Comment DIFF FINAL Differential Comment Sodium Level 141 Potassium Level 3.3 Chloride Level 108 Carbon Dioxide Level 24.5 Anion Gap 9 Blood Urea Nitrogen 14 Creatinine 1.09 Estimat Glomerular Filtration 79 Rate Random Glucose 124 Calcium Level 8.5 Phosphorus Level 2.6 Magnesium Level 1.8 Total Bilirubin 0.5 Aspartate Amino Transf 12 (AST/SGOT) Alanine Aminotransferase 12 (ALT/SGPT) Alkaline Phosphatase 67 Total Protein 6.8 Albumin 3.5 Free Thyroxine 1.09 Thyroid Stimulating Hormone 1.090 3rd Gen Date/Time Procedure Status Source Growth 01/08/17 11:20 Aerobic Blood Culture - Preliminary Resulted Blood Peripheral NO GROWTH IN 1 DAY 01/08/17 11:20 Anaerobic Blood Culture - Preliminary Resulted Blood Peripheral NO GROWTH IN 1 DAY 01/08/17 09:50 Urine Culture - Final Complete Urine Catheterized Urine Tal Bernabe MD Jan 09, 2017 19:45
[2017-01-10] VITALS (7 sets, daily range): BP systolic 137–169; BP diastolic 62–83; PULSE 50–74; RESP 18–20; TEMP 98–98.7; O2SAT 95–100
[2017-01-10] MEDS: LEVOTHYROXINE SODIUM 75 MCG TAB PO SCH (06:09)
[2017-01-10] MEDS: SODIUM CHLOR 0.9% 1000 ML INJ 1,000 ML IV SCH ×2 (06:10→14:00)
[2017-01-10] MEDS ORDERED: METOPROLOL TARTRATE 25 MG TAB PO SCH (09:00)
[2017-01-10] MEDS: SODIUM CHLORIDE 0.9% FLUSH 10 ML FLUSH IV FLUSH SCH (09:14)
[2017-01-10] MEDS: DOCUSATE SODIUM 50 MG/SENNA 8.6 MG TAB PO SCH (09:14)
[2017-01-10] MEDS: APIXABAN 5 MG TABLET PO SCH (09:15)
[2017-01-10] MEDS: PRAVASTATIN SOD 80 MG TAB PO SCH (09:15)
[2017-01-10] MEDS: levETIRAcetam 500 MG TAB PO SCH (09:15)
[2017-01-10 11:36] LABS: BACTERIA, URINE OCC /hpf; BLOOD, URINE NEG (NEG); GLUCOSE,URINE NEG (NEG); KETONE, URINE NEG (NEG); NITRITE,URINE NEG (NEG); PH, URINE 5.5 (5.0-8.5); URINE COLOR LIGHT-YELLOW (YELLW/STRAW)
[2017-01-10 11:38] LABS: COMMENT (UR) CATH-CULTURE IND; CULTURE IF INDICATED CATH CULTURE IND
[2017-01-10] MEDS ORDERED: TAMSULOSIN HCL 0.4 MG CAP PO SCH (12:30)
--- NOTE | 2017-01-10 12:30 | HHI.FF ---
Face to Face Verification Diagnosis: (1) Acute renal failure (2) Encephalopathy acute (3) UTI (urinary tract infection) (4) Seizure Physical Therapy Order: Evaluate and Treat, Improve ambulation, Strength and gait training Home Health Nursing Order: Medical education Signs/symptoms of disease process Medication education-adverse effect Nursing assessment with vital signs Ayon catheter maintenance I have seen patient Buzz Blanco on 01/10/17. My clinical findings support the need for the requested home health care services because: Deconditioned w/ increased weakness Limited ability to care for self Need for psychosocial assistance Impaired cognition/judgement High risk of falls Infection w/ risk of complications I certify that my clinical findings support that this patient is homebound because: Impaired cognitive ability/safety Unsteady gait/balance Unsafe to leave home unassisted Need for psychosocial assistance Unable to use public transportation Fatou Mcgrath DO Jan 10, 2017 12:30 pm
[2017-01-10] MEDS ORDERED: LEVE500 PO (12:35)
[2017-01-10] MEDS ORDERED: TAMS5CAP PO (12:35)
[2017-01-10] MEDS ORDERED: METO25TA3 PO (12:35)
--- NOTE | 2017-01-10 13:00 | HHI.DS ---
Discharge Summary Admission Date Jan 08, 2017 at 11:33 Discharge Date: Jan 10, 2017 Admitting Diagnosis uti, elevated lactate, rule out seizure, hx of cva (1) UTI (urinary tract infection) ICD Code: N39.0 (2) S/P carotid endarterectomy ICD Code: Z98.89 (3) Acute encephalopathy ICD Code: G93.40 Diagnosis: Principal (4) Urinary retention ICD Code: R33.9 (5) Seizure ICD Code: R56.9 Diagnosis: Principal (6) Hypothyroidism ICD Code: E03.9 (7) Hyperlipidemia ICD Code: E78.5 (8) Atrial fibrillation ICD Code: I48.91 Procedures EEG 01/08/2017 INTERPRETATION Abnormal EEG because of continuous bilateral slowing possibly worse on the left than right. The findings suggest a diffuse disturbance of cerebral function and possible left hemisphere structural abnormality. No epileptiform feature is present. Brief History - From Admission This is a 81 y/o male with history of atrial fibrillation, HTN, hypothyroidism, CVA with right sided residual weakness, and urinary retention with chronic indwelling carrasco catheter in place, was brought to ER with altered mental status and shaking. Patient has history of CVA with expressive aphasia unable to provide meaningful information therefore information gathered from physical exam and prior computerized charting. Per ER documentation: patient presents today after having an episode of unresponsiveness and involuntary movement. Daughter who was at bedside earlier reported that he was at breakfast when he started shaking uncontrollably his eyes rolled back into his head and he became unresponsive. The episode lasted a few minutes. He's had previous episodes like this in the past. Daughter stated that when he gets urinary tract infections. UA reviewed and is consistent with UTI, LA also elevate at 6.5 consistent with seizure activity. Patient offers no complaints at this time. She remains nonverbal and does not really follow commands CBC/BMP: 01/09/17 1120 01/09/17 1120 Significant Findings Laboratory Tests Test 01/08/17 01/08/17 01/08/17 01/08/17 09:45 09:50 09:52 12:00 Lymphocytes (%) (Auto) 54.5 % (9.0-44.0) Potassium Level 3.4 MEQ/L (3.5-5.1) Chloride Level 110 MEQ/L (98-107) Carbon Dioxide Level 20.2 MEQ/L (21.0-32.0) Blood Urea Nitrogen 21 MG/DL (7-18) Creatinine 1.35 MG/DL (0.60-1.30) Estimat Glomerular Filtration 62 ML/MIN (>89) Rate Random Glucose 135 MG/DL (74-106) Calcium Level 8.1 MG/DL (8.5-10.1) Aspartate Amino Transf 14 U/L (15-37) (AST/SGOT) Urine Protein 30 mg/dL (NEG-TRACE) Urine Occult Blood TRACE (NEG) Urine Nitrite POS (NEG) Urine Leukocyte Esterase MOD (NEG) Urine RBC 6 /hpf (0-3) Urine WBC 9 /hpf (0-5) Urine Bacteria OCC /hpf (NONE) Urine Mucus FEW /lpf (OCC) Lactic Acid Level 6.5 mmol/L 3.6 mmol/L (0.4-2.0) (0.4-2.0) Test 01/09/17 01/10/17 11:20 10:55 Potassium Level 3.3 MEQ/L (3.5-5.1) Chloride Level 108 MEQ/L (98-107) Estimat Glomerular Filtration 79 ML/MIN (>89) Rate Random Glucose 124 MG/DL (74-106) Aspartate Amino Transf 12 U/L (15-37) (AST/SGOT) Urine Leukocyte Esterase SMALL (NEG) Urine Bacteria OCC /hpf (NONE) Imaging Last Impressions Head CT 01/08/17943 Signed Impressions: Service Date/Time: Sunday, January 08, 2017 10:11 - CONCLUSION: Stable large chronic left MCA infarct. No acute infarct, hemorrhage, mass effect or edema. Charles Acuña MD Chest X-Ray 01/08/17943 Signed Impressions: Service Date/Time: Sunday, January 08, 2017 09:47 - CONCLUSION: Moderate gaseous distention with elevation of the left hemidiaphragm. The lungs are clear. Tom Yanes MD FACR PE at Discharge GENERAL: Alert, NAD. Carrasco cath in place. SKIN: Warm and dry. HEAD: Normocephalic. EYES: No scleral icterus. No injection or drainage. NECK: Supple, trachea midline. No JVD or lymphadenopathy. CARDIOVASCULAR: Regular rate and rhythm without murmurs, gallops, or rubs. RESPIRATORY: Breath sounds equal bilaterally. No accessory muscle use. GASTROINTESTINAL: Abdomen soft, non-tender, nondistended. MUSCULOSKELETAL: No cyanosis, or edema. BACK: Nontender without obvious deformity. No CVA tenderness. Pt update on day of discharge Mr. Blanco is doing well. He is more alert, no acute concerns. Discussed at length with patient's two daughters. According to one of the daughters who is heavily involved in the care of the patient - Patient gets more lethargic, out of it on keppra. She would prefer to hold onto Keppra but not give him Keppra unless there is clear indication. She is waiting to talk to Dr. Bernabe ( Neurologist). We discussed that it would be okay to wait and see if patient has any further seizure activity. If he does, he can follow up with neurology. Hospital Course This is a 81 y/o male with history of atrial fibrillation, HTN, hypothyroidism, CVA with right sided residual weakness, and urinary retention with chronic indwelling carrasco catheter in place, was brought to ER with after having an episode of unresponsiveness and involuntary movement. Patient is currently disoriented 3 unable to provide meaningful information therefore information gathered from physical exam and prior computerized charting. possible Seizure Lactic acidosis 6.5 consistent with seizure activity CT head reviewed and reveals: Stable large chronic left MCA infarct. No acute infarct, hemorrhage, mass effect or edema. serial neuro-checks seizure precautions Neurology recommends continuation of Keppra. Discussed with patient's daughters. They would prefer to hold off giving patient Keppra as they suspect Keppra is interfering with patient's quality of life. UTI- catheter-associated ( carrasco in place due to chronic urinary retention) UA reviewed consistent with UTI- urine culture shows mixed dada growth. change carrasco cath Repeat UA also indicates no significant pyuria. atrial fibrillation- rate controlled continue Apixaban 5mg BID Reduce metoprolol to 25mg BID - HOLD if heart rate < 65 or Systolic BP < 120 history of CVA; continue home pravastatin 80 mg by mouth daily and eliquis consult PT/OT ALEXIS on chronic renal insufficiency- Improved. Creatinine 1.35 --> 1.09. hypertension- Stable Continue home meds and will monitor hypothyroidism Continue home Synthroid 75 mcg daily Chronic carrasco cath - Started Flomax 0.4mg Qday. Encouraged patient to follow up with his urologist and possibly discontinue Carrasco cath in near future. DVT prophylaxis/atrial fibrillation prophylaxis- on eliquis Pt Condition on Discharge: Good Discharge Disposition: Disch w/ Home Health Serv Discharge Time: > 30 minutes Discharge Instructions DIET: Follow Instructions for: As Tolerated, No Restrictions Activities you can perform: Regular-No Restrictions Follow up Referrals: Neurology - 2 Weeks with Tal Bernabe MD PCP Follow-up - 1 Week Urology - 1 Week New Medications: Levetiracetam (Keppra) 500 Mg Tab 500 MG PO BID Seizure Control #60 TAB Metoprolol Tartrate (Metoprolol Tartrate) 25 Mg Tab 25 MG PO Q12HR Heart #60 TAB Tamsulosin (Flomax) 0.4 Mg Cap 0.4 MG PO DAILY BPH #30 CAP Continued Medications: Apixaban (Eliquis) 5 Mg Tab 5 MG PO BID Blood Clot Prevention #60 Ref 0 TAB B-Complex Vitamins (Vitamin B Complex) 1 Tab Levothyroxine (Synthroid) 75 Mcg Tab 75 MCG PO DAILY@0600 Thyroid #30 TAB Pravastatin (Pravastatin) 80 Mg Tab 80 MG PO DAILY Cholesterol Management #30 Ref 0 TAB Discontinued Medications: Hydrochlorothiazide (Hydrochlorothiazide) 25 Mg Tab 25 MG PO DAILY #30 Ref 0 TAB Losartan (Cozaar) 100 Mg Tab 100 MG PO DAILY Blood Pressure Management #30 Ref 0 TAB Metoprolol Tartrate (Metoprolol Tartrate) 100 Mg Tab 100 MG PO BID #60 Ref 0 TAB Fatou Mcgrath DO Jan 10, 2017 13:00
[2017-01-12] MEDS ORDERED: AMOX875T PO (15:24)
== END 2017-01-10 17:54 | disposition home health service (06) ==
LOC: NEPC 09:28 → NEDA 11:33 → N05B 15:05
PROVIDERS: ADMIT Hospitalist; ATTEND Hospitalist
DX: N39.0 Urinary tract infection, site not specified (principal); B95.2 Enterococcus as the cause of diseases classified elsewhere; G93.40 Encephalopathy, unspecified; E03.9 Hypothyroidism, unspecified; E78.5 Hyperlipidemia, unspecified; R56.9 Unspecified convulsions; R33.9 Retention of urine, unspecified; I48.91 Unspecified atrial fibrillation; I25.10 Atherosclerotic heart disease of native coronary artery without angina pectoris; Z79.01 Long term (current) use of anticoagulants; I69.351 Hemiplegia and hemiparesis following cerebral infarction affecting right dominant side; I69.320 Aphasia following cerebral infarction; Z79.899 Other long term (current) drug therapy; N17.9 Acute kidney failure, unspecified; I12.9 Hypertensive chronic kidney disease with stage 1 through stage 4 chronic kidney disease, or unspecified chronic kidney disease; N18.9 Chronic kidney disease, unspecified
CPT/HCPCS: 51702; 70450; 71010; 80053; 81001; 82550; 83036; 83605; 83735; 84100; 84146; 84439; 84443; 84484; 85025; 87040; 87077; 87086; 87186; 92523; 93005; 95819; 96361; 96365; 96376; 97110; 97162; 97166; 97760; 99285; G0378; G8987; G8988; G9174; G9175; G9176; J0696; J1953; J7030

== ENCOUNTER 2017-03-10 14:27 | Observation (INO) | payer MEDICARE ==
[~2017-03-10] VITALS: Ht 170.2 cm; Wt 75.0 kg
[~2017-03-10 14:27] MED LIST changes: -CIPR-9 PO; -COZA100T PO; +LOSA50TA PO; -METO100T PO; +METO50TA PO; -NITR100C4 PO; +NITR1CAP37 PO
[2017-03-10 14:30] VITALS: RESP 16; O2SAT 96
[2017-03-10 14:35] VITALS: BP 136/61; PULSE 69; RESP 16; O2SAT 96
[2017-03-10] MEDS ORDERED: SODIUM CHLOR 0.9% 1000 ML INJ 1,000 ML IV SCH (14:39)
--- NOTE | 2017-03-10 14:49 | PD ---
HPI Chief Complaint: Altered Mental Status Time Seen by Provider: 14:37 Travel History International Travel<30 days: No Contact w/Intl Traveler<30days: No Traveled to known affect area: No History of Present Illness HPI 81-year-old male to presents to the ED for evaluation of altered mental status for about 45 minutes. Patient is for the most part a poor historian. Patient has a chronic history CVA, hypothyroidism, neurogenic bladder with a Ayon catheter that is chronic as well as possible seizures from what I can read from the medical records. He apparently had a CVA some years ago and has been for the most part bedridden and his daughter takes care of him. For the most per patient is able to respond to name and follows some commands but he's not alert and oriented 3. Apparently today about 45 minutes he became a little more lethargic and hard to arouse. When ambulance showed up he was for the most nonresponsive to pinprick on him to check his sugar and he came back to it. Per ambulance they noted some movement of the eye where his eyes were moving horizontally. Per report from the ambulance patient does have a prescription for Keppra but only uses it when necessary. From our medical records neurology recommended patient taking the Keppra but apparently there are some issues with him having a lot of side effects and they were concerned so this was discontinued only uses when necessary. No head injury reported. No blood thinner use. Patient does have a history of frequent UTIs secondary to Ayon catheter and from old medical records she's had similar presentations in the past. Again history is limited because of the patient's mental status which appears to be back to baseline at this time. He does appear to follow some commands and does not appear to be lethargic at this time. PFSH Past Medical History Hx Anticoagulant Therapy: Yes (eliquis ) Atrial Fibrillation: Yes Anxiety: No Depression: No Heart Rhythm Problems: Yes (AFIB) Cancer: No Cardiovascular Problems: Yes High Cholesterol: Yes Cerebrovascular Accident: Yes Diabetes: No Diminished Hearing: No Endocrine: Yes Gastrointestinal Disorders: No Hepatitis: No Hiatal Hernia: No Hypertension: Yes Immune Disorder: No Implanted Vascular Access Dvce: No Musculoskeletal: Yes Neurologic: Yes Psychiatric: No Reproductive: No Respiratory: No Thyroid Disease: Yes (HYPOTHYROID) Past Surgical History Abdominal Surgery: Yes AICD: No Appendectomy: Yes Cardiac Surgery: No Endocrine Surgery: No Eye Surgery: No Genitourinary Surgery: No Gynecologic Surgery: No Joint Replacement: No Neurologic Surgery: No Oral Surgery: No Pacemaker: No Thoracic Surgery: No Other Surgery: Yes Social History Alcohol Use: No Tobacco Use: No Substance Use: No Allergies-Medications (Allergen,Severity, Reaction): Coded Allergies: Penicillins (Verified Allergy, Severe, Nausea/Vomiting, 03/10/17) Reported Meds & Prescriptions Reported Meds & Active Scripts Active Nitrofurantoin Macrocrystal 50 Mg Cap 50 Mg PO DAILY Synthroid (Levothyroxine Sodium) 75 Mcg Tab 75 Mcg PO DAILY@0600 Reported Hydrochlorothiazide 25 Mg Tab 25 Mg PO DAILY Losartan (Losartan Potassium) 50 Mg Tab 50 Mg PO DAILY Metoprolol Tartrate 50 Mg Tab 50 Mg PO BID Pravastatin 80 Mg Tab 80 Mg PO DAILY Vitamin B Complex (B-Complex Vitamins) 1 Tab Eliquis (Apixaban) 5 Mg Tab 5 Mg PO BID Review of Systems ROS Limitations: Poor Historian Except as stated in HPI: all other systems reviewed are Neg Physical Exam Exam Limitations: Poor Historian Narrative GENERAL: SKIN: Warm and dry. HEAD: Atraumatic. Normocephalic. EYES: Pupils equal and round 4mms reactive to light and accomodation. No scleral icterus. No injection or drainage. ENT: No nasal bleeding or discharge. Mucous membranes pink and moist. Tongue is midline. No uvula deviation. NECK: Trachea midline. No JVD. CARDIOVASCULAR: Regular rate and rhythm. No murmurs, S3, S4. RESPIRATORY: No accessory muscle use. Clear to auscultation. Breath sounds equal bilaterally. GASTROINTESTINAL: Abdomen soft, non-tender, nondistended. Hepatic and splenic margins not palpable. Ayon catheter noted. MUSCULOSKELETAL: Extremities without clubbing, cyanosis, or edema. No obvious deformities. Full range of motion of the upper and lower extremities bilaterally. 2+ pulses bilaterally. NEUROLOGICAL: Awake and alert and oriented x 1. No obvious cranial nerve deficits. Motor grossly within normal limits. Five out of 5 muscle strength in the arms and legs. Normal speech. PSYCHIATRIC: Demented mood and affect; insight and judgment minimal if any. Data Data Last Documented VS Vital Signs Date Time Temp Pulse Resp B/P (MAP) Pulse Ox O2 Delivery O2 Flow Rate FiO2 03/10/17 14:35 69 16 136/61 (86) 96 03/10/17 14:30 Room Air Orders Orders Electrocardiogram (03/10/17 14:35) Complete Blood Count With Diff (03/10/17 14:35) Comprehensive Metabolic Panel (03/10/17 14:35) Ckmb (Isoenzyme) Profile (03/10/17 14:35) Troponin I (03/10/17 14:35) Prothrombin Time / Inr (Pt) (03/10/17 14:35) Act Partial Throm Time (Ptt) (03/10/17 14:35) Blood Culture (03/10/17 14:35) Urinalysis - C+S If Indicated (03/10/17 14:35) Magnesium (Mg) (03/10/17 14:35) Thyroid Stimulating Hormone (03/10/17 14:35) Chest, Single Ap (03/10/17 14:35) Ct Brain W/O Iv Contrast(Rout) (03/10/17 14:35) Iv Access Insert/Monitor (03/10/17 14:35) Ecg Monitoring (03/10/17 14:35) Oximetry (03/10/17 14:35) Lactic Acid Sepsis Protocol (03/10/17 14:35) Levetiracetam (03/10/17 14:35) Sodium Chlor 0.9% 1000 Ml Inj (Ns 1000 M (03/10/17 14:39) Aztreonam Inj (Azactam Inj) (03/10/17 16:06) Sodium Chlor 0.9% 1000 Ml Inj (Ns 1000 M (03/10/17 16:06) Sodium Chlor 0.9% 1000 Ml Inj (Ns 1000 M (03/10/17 16:06) Urine Culture (03/10/17 15:03) Urinary Catheter Management DEMI.Q8H (03/10/17 18:59) Admit Order (Ed Use Only) (03/10/17 19:30) Labs Laboratory Tests Test 03/10/17 15:00 03/10/17 15:03 03/10/17 16:17 03/10/17 17:50 White Blood Count 6.5 TH/MM3 Red Blood Count 5.25 MIL/MM3 Hemoglobin 14.8 GM/DL Hematocrit 45.9 % Mean Corpuscular Volume 87.4 FL Mean Corpuscular Hemoglobin 28.3 PG Mean Corpuscular Hemoglobin Concent 32.3 % Red Cell Distribution Width 14.6 % Platelet Count 186 TH/MM3 Mean Platelet Volume 10.9 FL Neutrophils (%) (Auto) 41.5 % Lymphocytes (%) (Auto) 52.6 % Monocytes (%) (Auto) 4.1 % Eosinophils (%) (Auto) 1.4 % Basophils (%) (Auto) 0.4 % Neutrophils # (Auto) 2.7 TH/MM3 Lymphocytes # (Auto) 3.4 TH/MM3 Monocytes # (Auto) 0.3 TH/MM3 Eosinophils # (Auto) 0.1 TH/MM3 Basophils # (Auto) 0.0 TH/MM3 CBC Comment DIFF FINAL Differential Comment Prothrombin Time 13.7 SEC Prothromb Time International Ratio 1.2 RATIO Activated Partial Thromboplast Time 29.2 SEC Blood Urea Nitrogen 22 MG/DL Creatinine 1.43 MG/DL Random Glucose 153 MG/DL Total Protein 7.6 GM/DL Albumin 4.0 GM/DL Calcium Level 8.9 MG/DL Magnesium Level 1.9 MG/DL Alkaline Phosphatase 66 U/L Aspartate Amino Transf (AST/SGOT) 18 U/L Alanine Aminotransferase (ALT/SGPT) 15 U/L Total Bilirubin 0.6 MG/DL Sodium Level 142 MEQ/L Potassium Level 3.3 MEQ/L Chloride Level 106 MEQ/L Carbon Dioxide Level 22.5 MEQ/L Anion Gap 14 MEQ/L Estimat Glomerular Filtration Rate 58 ML/MIN Lactic Acid Level 6.2 mmol/L 2.3 mmol/L Total Creatine Kinase 80 U/L Troponin I 0.03 NG/ML Thyroid Stimulating Hormone 3rd Gen 4.820 uIU/ML Urine Color DARK-YELLOW Urine Turbidity CLOUDY Urine pH 6.0 Urine Specific [place] 1.025 Urine Protein 300 mg/dL Urine Glucose (UA) NEG mg/dL Urine Ketones NEG mg/dL Urine Occult Blood SMALL Urine Nitrite NEG Urine Bilirubin NEG Urine Urobilinogen 2.0 MG/DL Urine Leukocyte Esterase LARGE Urine RBC 25 /hpf Urine WBC /hpf Urine WBC Clumps RARE Urine Squamous Epithelial Cells 20 /hpf Urine Hyaline Casts 7 /lpf Urine Mucus MANY /lpf Urine Sperm MOD Microscopic Urinalysis Comment CULTURE INDICATED MDM Medical Decision Making Medical Screen Exam Complete: Yes Emergency Medical Condition: Yes Medical Record Reviewed: Yes Interpretation(s) CBC & BMP Diagram 03/10/17 15:00 Total Protein 7.6, Albumin 4.0, Calcium Level 8.9, Magnesium Level 1.9, Alkaline Phosphatase 66, Aspartate Amino Transf (AST/SGOT) 18, Alanine Aminotransferase (ALT/SGPT) 15, Total Bilirubin 0.6 lactic acid of [address] 03/10/17 1435 Signed Impressions: Service Date/Time: Friday, March 10, 2017 15:34 - CONCLUSION: Stable brain appearance Manuel Bonilla MD Chest X-Ray 03/10/17 1435 Signed Impressions: Service Date/Time: Friday, March 10, 2017 15:01 - CONCLUSION: Stable chest appearance Manuel Bonilla MD UA shows UTI Differential Diagnosis Altered mental status versus CVA versus UTI versus sepsis versus seizure versus ACS Narrative Course 81-year-old male that presents to the ED for evaluation of altered mental status. Patient was properly examined and was found to have signs and symptoms of unclear etiology. At this time patient appears to be back to baseline. Labs and imaging were ordered. Fluids given. Labs and imaging showed what appears to be UTI and elevated lactic acid. Patient otherwise unremarkable. Patient was given 3 boluses of fluid. Patient was turned antibiotics. Case was discussed with my attending Dr. Wright who agrees with plan. Head is agrees to admission. Recheck of lactic acid show improvement at 2.3. Family agrees with admission plan. Dr Horan agrees to admission. Diagnosis Primary Impression: Encephalopathy acute Additional Impressions: UTI (urinary tract infection) Qualified Codes: N30.00 - Acute cystitis without hematuria Lactic acid acidosis Admitting Information Admitting Physician Requests: Wale Gridre Mar 10, 2017 14:49
--- NOTE | 2017-03-10 15:24 | RADRPT ---
EXAM DATE/TIME: 03/10/2017 15:01 [facility] COMPARISON: CT ABDOMEN & PELVIS W CONTRAST, August 22, 2015, 12:48. CHEST SINGLE AP, January 08, 2017, 9:47. INDICATIONS : Lethargic and unresponsive. MEDICAL HISTORY : Stroke. Cardiovascular disease. Hypertension SURGICAL HISTORY : None. ENCOUNTER: Initial ACUITY: 1 day PAIN SCORE: Non-responsive. LOCATION: Bilateral chest FINDINGS: There is stable prominent elevation of the left diaphragm. Lungs are grossly clear. Cardiac contours are unchanged CONCLUSION: Stable chest appearance Manuel Bonilla MD on March 10, 2017 at 15:22 Board Certified Radiologist. This report was verified electronically.
[2017-03-10 15:27] LABS: ALT (GPT) 15 U/L (12-78); ANION GAP 14 MEQ/L (5-15); AST (GOT) 18 U/L (15-37); BICARBONATE 22.5 MEQ/L (21.0-32.0); BLOOD UREA NITROGEN 22 MG/DL (7-18); CHLORIDE 106 MEQ/L (98-107); GLOMERULAR FILTRATION RATE 58 ML/MIN (>89); MAGNESIUM 1.9 MG/DL (1.5-2.5); POTASSIUM 3.3 MEQ/L (3.5-5.1); SODIUM (NA) 142 MEQ/L (136-145)
[2017-03-10 15:35] LABS: AUTOMATED NEUTROPHIL # 2.7 TH/MM3 (1.8-7.7); BASOPHIL % 0.4 % (0.0-2.0); EOSINOPHIL # 0.1 TH/MM3 (0-0.4); EOSINOPHIL % 1.4 % (0.0-4.0); HEMATOCRIT 45.9 % (39.0-51.0); HEMO FLAGS DIFF FINAL; LYMPH % 52.6 % (9.0-44.0); LYMPHOCYTE # 3.4 TH/MM3 (1.0-4.8); MEAN CELL VOLUME 87.4 FL (80.0-100.0); MEAN CORPUSCULAR HEMOGLOBIN 28.3 PG (27.0-34.0); MEAN CORPUSCULAR HGB CONC 32.3 % (32.0-36.0); MONO % 4.1 % (0.0-8.0); NEUT % 41.5 % (16.0-70.0); PLATELET COUNT 186 TH/MM3 (150-450); RED BLOOD COUNT 5.25 MIL/MM3 (4.50-5.90); RED CELL DISTRIBUTION WIDTH 14.6 % (11.6-17.2); WHITE BLOOD COUNT 6.5 TH/MM3 (4.0-11.0)
[2017-03-10 15:37] LABS: ALKALINE PHOSPHATASE 66 U/L (45-117); TOTAL BILIRUBIN ADULT 0.6 MG/DL (0.2-1.0)
[2017-03-10 15:48] LABS: APTT (PATIENT) 29.2 SEC (24.3-30.1); INTERNATIONAL NORMALIZED RATIO 1.2 RATIO; PROTHROMBIN TIME - PATIENT 13.7 SEC (9.8-11.6)
--- NOTE | 2017-03-10 15:53 | RADRPT ---
EXAM DATE/TIME: 03/10/2017 15:34 [facility] COMPARISON: CT BRAIN W/O CONTRAST, January 08, 2017, 10:11. INDICATIONS : Altered mental status. RADIATION DOSE: 38.15 CTDIvol (mGy) MEDICAL HISTORY : Cardiovascular disease. Hypertension. SURGICAL HISTORY : None. ENCOUNTER: Initial ACUITY: 1 day PAIN SCALE: 0/10 LOCATION: cranial TECHNIQUE: Multiple contiguous axial images were obtained of the head. Using automated exposure control and adj ustment of the mA and/or kV according to patient size, radiation dose was kept as low as reasonably a chievable to obtain optimal diagnostic quality images. DICOM format image data is available electro nically for review and comparison. FINDINGS: Old left hemispheric infarct is unchanged. There is stable asymmetric dilatation of the ventricular s ystem. Patchy diminished density in the white matter structures elsewhere likely microvascular ischem ic and also unchanged. There is no evidence of intracranial hemorrhage or mass. There is nothing to s uggest acute infarction. Extracranial structures are stable and benign. CONCLUSION: Stable brain appearance Manuel Bonilla MD on March 10, 2017 at 15:50 Board Certified Radiologist. This report was verified electronically.
[2017-03-10 16:03] LABS: CREATINE KINASE 80 U/L (39-308)
[2017-03-10] MEDS ORDERED: AZTREONAM INJ 1,000 MG in SODIUM CHLORIDE 0.9% INJ 100 ML IV STA (16:06)
[2017-03-10] MEDS ORDERED: SODIUM CHLOR 0.9% 1000 ML INJ 1,000 ML IV ONE (16:06)
[2017-03-10] MEDS ORDERED: SODIUM CHLOR 0.9% 1000 ML INJ 400 ML IV ONE (16:06)
[2017-03-10 16:10] LABS: BLOOD, URINE SMALL (NEG); COMMENT (UR) CULTURE INDICATED; CULTURE IF INDICATED CULTURE INDICATED; GLUCOSE,URINE NEG (NEG); HYALINE CAST, URINE 7 /lpf (RARE); KETONE, URINE NEG (NEG); MUCUS URINE MANY /lpf (OCC); NITRITE,URINE NEG (NEG); SQUAMOUS EPITHELIAL CELL URINE 20 /hpf (0-5); URINE COLOR DARK-YELLOW (YELLW/STRAW)
[2017-03-10 17:06] LABS: LACTIC ACID GHOST NOT REPORTABLE
--- NOTE | 2017-03-10 18:32 | PD ---
Data Data Last Documented VS Vital Signs Date Time Temp Pulse Resp B/P (MAP) Pulse Ox O2 Delivery O2 Flow Rate FiO2 03/10/17 14:35 69 16 136/61 (86) 96 03/10/17 14:30 Room Air Orders Orders Electrocardiogram (03/10/17 14:35) Complete Blood Count With Diff (03/10/17 14:35) Comprehensive Metabolic Panel (03/10/17 14:35) Ckmb (Isoenzyme) Profile (03/10/17 14:35) Troponin I (03/10/17 14:35) Prothrombin Time / Inr (Pt) (03/10/17 14:35) Act Partial Throm Time (Ptt) (03/10/17 14:35) Blood Culture (03/10/17 14:35) Urinalysis - C+S If Indicated (03/10/17 14:35) Magnesium (Mg) (03/10/17 14:35) Thyroid Stimulating Hormone (03/10/17 14:35) Chest, Single Ap (03/10/17 14:35) Ct Brain W/O Iv Contrast(Rout) (03/10/17 14:35) Iv Access Insert/Monitor (03/10/17 14:35) Ecg Monitoring (03/10/17 14:35) Oximetry (03/10/17 14:35) Lactic Acid Sepsis Protocol (03/10/17 14:35) Levetiracetam (03/10/17 14:35) Sodium Chlor 0.9% 1000 Ml Inj (Ns 1000 M (03/10/17 14:39) Aztreonam Inj (Azactam Inj) (03/10/17 16:06) Sodium Chlor 0.9% 1000 Ml Inj (Ns 1000 M (03/10/17 16:06) Sodium Chlor 0.9% 1000 Ml Inj (Ns 1000 M (03/10/17 16:06) Urine Culture (03/10/17 15:03) Urinary Catheter Management DEMI.Q8H (03/10/17 18:59) Admit Order (Ed Use Only) (03/10/17 19:30) Labs Laboratory Tests Test 03/10/17 15:00 03/10/17 15:03 03/10/17 17:50 White Blood Count 6.5 TH/MM3 Red Blood Count 5.25 MIL/MM3 Hemoglobin 14.8 GM/DL Hematocrit 45.9 % Mean Corpuscular Volume 87.4 FL Mean Corpuscular Hemoglobin 28.3 PG Mean Corpuscular Hemoglobin Concent 32.3 % Red Cell Distribution Width 14.6 % Platelet Count 186 TH/MM3 Mean Platelet Volume 10.9 FL Neutrophils (%) (Auto) 41.5 % Lymphocytes (%) (Auto) 52.6 % Monocytes (%) (Auto) 4.1 % Eosinophils (%) (Auto) 1.4 % Basophils (%) (Auto) 0.4 % Neutrophils # (Auto) 2.7 TH/MM3 Lymphocytes # (Auto) 3.4 TH/MM3 Monocytes # (Auto) 0.3 TH/MM3 Eosinophils # (Auto) 0.1 TH/MM3 Basophils # (Auto) 0.0 TH/MM3 CBC Comment DIFF FINAL Differential Comment Prothrombin Time 13.7 SEC Prothromb Time International Ratio 1.2 RATIO Activated Partial Thromboplast Time 29.2 SEC Blood Urea Nitrogen 22 MG/DL Creatinine 1.43 MG/DL Random Glucose 153 MG/DL Total Protein 7.6 GM/DL Albumin 4.0 GM/DL Calcium Level 8.9 MG/DL Magnesium Level 1.9 MG/DL Alkaline Phosphatase 66 U/L Aspartate Amino Transf (AST/SGOT) 18 U/L Alanine Aminotransferase (ALT/SGPT) 15 U/L Total Bilirubin 0.6 MG/DL Sodium Level 142 MEQ/L Potassium Level 3.3 MEQ/L Chloride Level 106 MEQ/L Carbon Dioxide Level 22.5 MEQ/L Anion Gap 14 MEQ/L Estimat Glomerular Filtration Rate 58 ML/MIN Lactic Acid Level 6.2 mmol/L 2.3 mmol/L Total Creatine Kinase 80 U/L Troponin I 0.03 NG/ML Thyroid Stimulating Hormone 3rd Gen 4.820 uIU/ML Urine Color DARK-YELLOW Urine Turbidity CLOUDY Urine pH 6.0 Urine Specific [place] 1.025 Urine Protein 300 mg/dL Urine Glucose (UA) NEG mg/dL Urine Ketones NEG mg/dL Urine Occult Blood SMALL Urine Nitrite NEG Urine Bilirubin NEG Urine Urobilinogen 2.0 MG/DL Urine Leukocyte Esterase LARGE Urine RBC 25 /hpf Urine WBC /hpf Urine WBC Clumps RARE Urine Squamous Epithelial Cells 20 /hpf Urine Hyaline Casts 7 /lpf Urine Mucus MANY /lpf Urine Sperm MOD Microscopic Urinalysis Comment CULTURE INDICATED MDM Supervised Visit with ANDRÉS: Yes Narrative Course Patient is a 81-year-old male presents emergency department for evaluation of increased confusion. Has a history of stroke and fairly altered at baseline. On my physical examination after 2-1/2 L of IV fluid the patient is fairly repetitive and says yes a lot but states he is feeling better. Has a stutter. Denies any pain anywhere. I think this history is fairly limited. The patient does have urinary tract infection appears dehydrated and has a lactic acid in excess of 6. His given a total of 3 L of fluid and the lactic acid was rechecked. Patient was discussed with hep his client resolution specialist who recommends a repeat lactic acid prior to taking the patient to the floor. I think it hemodynamically he is stable, if the lactic acid is better will admit to hospitalist for presumed sepsis and dehydration secondary to urinary tract infection. Nael Wright MD Mar 10, 2017 18:32
--- NOTE | 2017-03-10 19:35 | HHI.HP ---
HPI Service [facility] Primary Care Physician Samuel Alonso, DO Admission Diagnosis aletered mental status, UTI, lactic acidosis Diagnoses: (1) Encephalopathy Diagnosis: Principal (2) UTI (urinary tract infection) Diagnosis: Principal (3) ALEXIS (acute kidney injury) Diagnosis: Principal (4) Lactic acidosis Diagnosis: Principal (5) Hypokalemia Diagnosis: Principal (6) H/O: CVA (cerebrovascular accident) Diagnosis: Principal Travel History International Travel<30 Days: No Contact w/Intl Traveler <30 Da: No Traveled to Known Affected Are: No History of Present Illness Is a 81-year-old male with a PMH of HTN, A. fib, h/o CVA, Neurogenic Bladder w/ Indwelling Ayon and Recurrent UTI who was brought to the ER by EMS secondary to AMS noted by Daughter/Son-in-Law. Per family, pt had Ayon replaced yesterday, today was noted to be acting more confused. Per Daughter, pt is normally awake, but minimally responsive, answers few yes/no questions and overall is completely dependent on others for ADLs. Daughter states pt was difficult to arouse. States "this always happens after they take out the catheter". On arrival, BP 136/61, HR 69, O2 sat 96% on RA, Afebrile. CBC unremarkable. Creatinine 1.43, previously 1.09 on 01/09/17. Lactic Acid 6.2, s/ p IVF in ER, repeat Lactic Acid 2.3. U/a positive for UTI. CT Head w/ no acute findings. CXR stable. S/p Blood/Urine Cultures, IV Rocephin in ER. Pt currently more arousable, per family mental status appears to be close to baseline. Pt answering some questions appropriately. Review of Systems Except as stated in HPI: all other systems reviewed are Neg ROS: 14 point review of systems otherwise negative. Past Family Social History Past Medical History PMH: HTN, A. fib, h/o CVA, Neurogenic Bladder w/ Indwelling Ayon and Recurrent UTI Past Surgical History PAST SURGICAL HISTORY: Abdominal Surgery Allergies: Coded Allergies: Penicillins (Verified Allergy, Severe, Nausea/Vomiting, 03/10/17) Family History PAST FAMILY HISTORY: Reviewed. No h/o DM or CAD Social History PAST SOCIAL HISTORY: Negative for alcohol, tobacco or drugs. Physical Exam Vital Signs Vital Signs Date Time Temp Pulse Resp B/P (MAP) Pulse Ox O2 Delivery O2 Flow Rate FiO2 03/10/17 14:35 69 16 136/61 (86) 96 03/10/17 14:30 16 96 Room Air Physical Exam PE: GENERAL: Elderly black male in no acute distress. Family bedside HEENT: PERRLA, EOMI. No scleral icterus or conjunctival pallor. No lid lag or facial droop. CARDIOVASCULAR: Regular rate and rhythm. No obvious murmurs to auscultation. No chest tenderness to palpation. RESPIRATORY: No obvious rhonchi or wheezing. Clear to auscultation. Breath sounds equal bilaterally. GASTROINTESTINAL: Abdomen soft, non-tender, nondistended. BS normal. MUSCULOSKELETAL: Extremities without clubbing, cyanosis, or edema. No obvious deformities. NEUROLOGICAL: Awake, alert and oriented to person, place, confusion at baseline. No focal neurologic deficits. Moving both upper and lower extremities spontaneously. Laboratory Laboratory Tests Test 03/10/17 15:00 03/10/17 15:03 03/10/17 16:17 03/10/17 17:50 White Blood Count 6.5 Red Blood Count 5.25 Hemoglobin 14.8 Hematocrit 45.9 Mean Corpuscular Volume 87.4 Mean Corpuscular Hemoglobin 28.3 Mean Corpuscular Hemoglobin Concent 32.3 Red Cell Distribution Width 14.6 Platelet Count 186 Mean Platelet Volume 10.9 Neutrophils (%) (Auto) 41.5 Lymphocytes (%) (Auto) 52.6 Monocytes (%) (Auto) 4.1 Eosinophils (%) (Auto) 1.4 Basophils (%) (Auto) 0.4 Neutrophils # (Auto) 2.7 Lymphocytes # (Auto) 3.4 Monocytes # (Auto) 0.3 Eosinophils # (Auto) 0.1 Basophils # (Auto) 0.0 CBC Comment DIFF FINAL Differential Comment Prothrombin Time 13.7 Prothromb Time International Ratio 1.2 Activated Partial Thromboplast Time 29.2 Blood Urea Nitrogen 22 Creatinine 1.43 Random Glucose 153 Total Protein 7.6 Albumin 4.0 Calcium Level 8.9 Magnesium Level 1.9 Alkaline Phosphatase 66 Aspartate Amino Transf (AST/SGOT) 18 Alanine Aminotransferase (ALT/SGPT) 15 Total Bilirubin 0.6 Sodium Level 142 Potassium Level 3.3 Chloride Level 106 Carbon Dioxide Level 22.5 Anion Gap 14 Estimat Glomerular Filtration Rate 58 Lactic Acid Level 6.2 2.3 Total Creatine Kinase 80 Troponin I 0.03 Thyroid Stimulating Hormone 3rd Gen 4.820 Urine Color DARK-YELLOW Urine Turbidity CLOUDY Urine pH 6.0 Urine Specific [place] 1.025 Urine Protein 300 Urine Glucose (UA) NEG Urine Ketones NEG Urine Occult Blood SMALL Urine Nitrite NEG Urine Bilirubin NEG Urine Urobilinogen 2.0 Urine Leukocyte Esterase LARGE Urine RBC 25 Urine WBC Urine WBC Clumps RARE Urine Squamous Epithelial Cells 20 Urine Hyaline Casts 7 Urine Mucus MANY Urine Sperm MOD Microscopic Urinalysis Comment CULTURE INDICATED Date/Time Source Procedure Growth Status 03/10/17 15:00 Blood Peripheral Aerobic Blood Culture Pending Received 03/10/17 15:00 Blood Peripheral Anaerobic Blood Culture Pending Received 03/10/17 15:03 Urine Clean Catch Urine Culture Pending Received Result Diagram: 03/10/17 1500 03/10/17 1500 Caprini VTE Risk Assessment Caprini VTE Risk Assessment: Mod/High Risk (score >= 2) Caprini Risk Assessment Model Point Value = 1 Point Value = 2 Point Value = 3 Point Value = 5 Age 41-60 Minor surgery BMI > 25 kg/m2 Swollen legs Varicose veins or History of unexplained or recurrent spontaneous Oral contraceptives or hormone replacement Sepsis (< 1 month) Serious lung disease, including pneumonia (< 1 month) Abnormal pulmonary function Acute myocardial infarction Congestive heart failure (< 1 month) History of inflammatory bowel disease Medical patient at bed rest Age 61-74 Arthroscopic surgery Major open surgery (> 45 min) Laparoscopic surgery (> 45 min) Malignancy Confined to bed (> 72 hours) Immobilizing plaster cast Central venous access Age >= 75 History of VTE Family history of VTE Factor V Leiden Prothrombin [id number] Lupus anticoagulant Anticardiolipin antibodies Elevated serum homocysteine Heparin-induced thrombocytopenia Other congenital or acquired thrombophilia Stroke (< 1 month) Elective arthroplasty Hip, pelvis, or leg fracture Acute spinal cord injury (< 1 month) Prophylaxis Regimen Total Risk Factor Score Risk Level Prophylaxis Regimen 0-1 Low Early ambulation 2 Moderate Order ONE of the following: *Sequential Compression Device (SCD) *Heparin 5000 units SQ BID 3-4 Higher Order ONE of the following medications: *Heparin 5000 units SQ TID *Enoxaparin/Lovenox 40 mg SQ daily (WT < 150 kg, CrCl > 30 mL/min) *Enoxaparin/Lovenox 30 mg SQ daily (WT < 150 kg, CrCl > 10-29 mL/min) *Enoxaparin/Lovenox 30 mg SQ BID (WT < 150 kg, CrCl > 30 mL/min) AND/OR *Sequential Compression Device (SCD) 5 or more Highest Order ONE of the following medications: *Heparin 5000 units SQ TID (Preferred with Epidurals) *Enoxaparin/Lovenox 40 mg SQ daily (WT < 150 kg, CrCl > 30 mL/min) *Enoxaparin/Lovenox 30 mg SQ daily (WT < 150 kg, CrCl > 10-29 mL/min) *Enoxaparin/Lovenox 30 mg SQ BID (WT < 150 kg, CrCl > 30 mL/min) AND *Sequential Compression Device (SCD) Assessment and Plan Problem List: (1) Encephalopathy ICD Code: G93.40 - Encephalopathy, unspecified (2) UTI (urinary tract infection) ICD Code: N39.0 - Urinary tract infection, site not specified Status: Acute (3) Hypokalemia ICD Code: E87.6 - Hypokalemia (4) Lactic acidosis ICD Code: E87.2 - Acidosis (5) ALEXIS (acute kidney injury) ICD Code: N17.9 - Acute kidney failure, unspecified (6) H/O: CVA (cerebrovascular accident) ICD Code: Z86.73 - Personal history of transient ischemic attack (TIA), and cerebral infarction without residual deficits Assessment and Plan A/P: 1. Encephalopathy: acute onset of lethargy/confusion noted by family, CT Head w/ no acute findings, images reviewed by me. Likely secondary to UTI, mental status currently improved, per family back to baseline. Neuro Checks q4h. 2. UTI: U/a w/ UTI. H/o Neurogenic Bladder w/ Indwelling Ayon and Recurrent UTI, s/p Ayon exchange yesterday. Follow up Urine/Blood Cultures, continue IV Abx. IVF for hydration. 3. ALEXIS: Creatinine 1.43, previously 1.09 on 01/09/17, likely secondary to dehydration from UTI. IVF, repeat labs in am. 4. Lactic Acidosis: Lactate 6.2. No evidence of sepsis, acidosis likely secondary to dehydration. S/p IVF in ER, repeat Lactic Acid 2.3. Will trend lactate, continue w/ IVF. 5. Hypokalemia: Mild. K+ 3.3. Recheck labs in am, replace as needed. 6. H/o CVA: bed-bound/confused at baseline, requires assistance w/ ADL, Daughter is retail merchandiser technician. Resume home medications. 7. DVT Prophylaxis: On Eliquis 8. Social work for d/c planning as needed. 9. Case discussed w/ ER physician at length. Problem Qualifiers (1) UTI (urinary tract infection): Qualified Codes: N30.00 - Acute cystitis without hematuria Torrie Horan MD Mar 10, 2017 19:35
[2017-03-10] MEDS: SODIUM CHLOR 0.9% 1000 ML INJ 1,000 ML IV SCH (19:40)
[2017-03-10 19:41] VITALS: BP 136/73; PULSE 66; RESP 20; O2SAT 98
[2017-03-10] MEDS ORDERED: BISACODYL 10 MG SUPP RECTAL PRN (19:45)
[2017-03-10] MEDS ORDERED: ACETAMINOPHEN 325 MG TAB PO PRN (19:45)
[2017-03-10] MEDS ORDERED: ONDANSETRON HCL 4 MG/2 ML VIAL IVP PRN (19:45)
[2017-03-10] MEDS ORDERED: MAGNESIUM HYDROXIDE SUSP 30 ML CUP PO PRN (19:45)
[2017-03-10] MEDS ORDERED: SENNOSIDES 8.6 MG TAB PO PRN (19:45)
[2017-03-10] MEDS ORDERED: SODIUM CHLORIDE 0.9% FLUSH 10 ML FLUSH IV FLUSH PRN (19:45)
[2017-03-10] MEDS ORDERED: LACTULOSE SYRUP 20 GM/30 ML CUP PO PRN (19:45)
[2017-03-10] MEDS ORDERED: MORPHINE SULFATE 4 MG/ML INJ IV PUSH PRN (19:45)
[2017-03-10] MEDS ORDERED: ACETAMINOPHEN/HYDROcodone 325 MG/5 MG TAB PO PRN (19:45)
[2017-03-10] MEDS: SODIUM CHLORIDE 0.9% FLUSH 10 ML FLUSH IV FLUSH SCH (21:00)
[2017-03-10] MEDS: METOPROLOL TARTRATE 50 MG TAB PO SCH (21:11)
[2017-03-10] MEDS: APIXABAN 5 MG TABLET PO SCH (21:12)
[2017-03-10] MEDS: DOCUSATE SODIUM 50 MG/SENNA 8.6 MG TAB PO SCH (21:12)
[2017-03-10 22:28] VITALS: BP 150/70; PULSE 55; RESP 18; TEMP 98.2; O2SAT 97
[2017-03-11 04:00] VITALS: BP 150/74; PULSE 52; RESP 18; TEMP 97.9; O2SAT 96
[2017-03-11] MEDS: SODIUM CHLOR 0.9% 1000 ML INJ 1,000 ML IV SCH (05:26)
[2017-03-11] MEDS ORDERED: LEVOTHYROXINE SODIUM 75 MCG TAB PO SCH (06:00)
--- NOTE | 2017-03-11 06:01 | EKG ---
Date Performed: 03/10/2017 Time Performed: 14:42:47 PTAGE: 81 years EKG: ATRIAL FIBRILLATION POSSIBLE RIGHT VENTRICULAR CONDUCTION DELAY ST DEVIATION AND MARKED T-W AVE ABNORMALITY, CONSIDER ANTEROLATERAL ISCHEMIA ST DEVIATION AND MODERATE T-WAVE ABNORMALITY, CONSID ER INFERIOR ISCHEMIA ABNORMAL ECG PREVIOUS TRACING : 01/08/2017 09.39 DOCTOR: Dustin Newell Interpretating Date/Time 03/11/2017 05:57:53
[2017-03-11] MEDS: SODIUM CHLORIDE 0.9% FLUSH 10 ML FLUSH IV FLUSH SCH (09:00)
[2017-03-11] MEDS ORDERED: CIPROFLOXACIN 400 MG PREMIX 200 ML IV SCH (09:00)
[2017-03-11] MEDS ORDERED: PRAVASTATIN SOD 80 MG TAB PO SCH (09:00)
[2017-03-11] MEDS: DOCUSATE SODIUM 50 MG/SENNA 8.6 MG TAB PO SCH (09:00)
[2017-03-11 09:03] VITALS: BP 159/77; PULSE 53; RESP 16; TEMP 97.4; O2SAT 97
[2017-03-11] MEDS: APIXABAN 5 MG TABLET PO SCH (09:58)
[2017-03-11] MEDS: METOPROLOL TARTRATE 50 MG TAB PO SCH (09:59)
--- NOTE | 2017-03-11 10:34 | HHI.PR ---
Subjective Remarks Follow up AMS and UTI. Patient seen and examined, lying in bed comfortably in no apparent distress. Daughter at beside, assisting patient with breakfast. Denies any new acute complaints overnight. Patient confused at baseline with history of dementia. Daughter states that he is currently at his baseline. Denies any pain. Denies any recent fever, chills, cough, headache, shortness of breath, abdominal pain, nausea, vomiting, diarrhea or dysuria. Denies any urinary complaints. Objective Vitals Vital Signs Date Time Temp Pulse Resp B/P (MAP) Pulse Ox O2 Delivery O2 Flow Rate FiO2 03/11/17 09:03 97.4 53 16 159/77 (104) 97 03/11/17 04:00 97.9 52 18 150/74 (99) 96 03/10/17 22:28 98.2 55 18 150/70 (96) 97 03/10/17 21:56 03/10/17 19:41 66 20 136/73 (94) 98 Room Air 03/10/17 14:35 69 16 136/61 (86) 96 03/10/17 14:30 16 96 Room Air I/O 03/10/17 03/10/17 03/10/17 03/11/17 03/11/17 03/11/17 07:00 15:00 23:00 07:00 15:00 23:00 Intake Total 2500 ml Output Total 800 ml 1951 ml Balance 1700 ml -1951 ml Intake IV Total 2500 ml Output Urine Total 800 ml 1950 ml Stool Total 1 ml # Voids 0 1 # Bowel Movements 1 Result Diagram: 03/10/17 1500 03/10/17 1500 Imaging Last Impressions Head CT 03/10/175 Signed Impressions: Service Date/Time: Friday, March 10, 2017 15:34 - CONCLUSION: Stable brain appearance Manuel Bonilla MD Chest X-Ray 03/10/17 1435 Signed Impressions: Service Date/Time: Friday, March 10, 2017 15:01 - CONCLUSION: Stable chest appearance Manuel Bonilla MD Objective Remarks GENERAL: Well-developed, well-nourished elderly male patient lying in bed in no acute distress. Daughter at bedside. HEENT: PERRLA, EOMI. No scleral icterus or conjunctival pallor. No lid lag or facial droop. CARDIOVASCULAR: Regular rate and rhythm. No obvious murmurs to auscultation. No chest tenderness to palpation. S1 and S2 present, no S3 or S4. RESPIRATORY: No obvious rhonchi or wheezing. Clear to auscultation. Breath sounds equal bilaterally. GASTROINTESTINAL: Abdomen soft, non-tender, nondistended. BS present x 4 q. MUSCULOSKELETAL: Extremities without clubbing, cyanosis, or edema. No obvious deformities. NEUROLOGICAL: Awake, alert and oriented to person, place, with mild confusion at baseline. No focal neurologic deficits. Moving both upper and lower extremities spontaneously. Strength equal. A/P Problem List: (1) Encephalopathy ICD Code: G93.40 - Encephalopathy, unspecified (2) UTI (urinary tract infection) ICD Code: N39.0 - Urinary tract infection, site not specified Status: Acute (3) Hypokalemia ICD Code: E87.6 - Hypokalemia (4) Lactic acidosis ICD Code: E87.2 - Acidosis (5) ALEXIS (acute kidney injury) ICD Code: N17.9 - Acute kidney failure, unspecified (6) H/O: CVA (cerebrovascular accident) ICD Code: Z86.73 - Personal history of transient ischemic attack (TIA), and cerebral infarction without residual deficits Assessment and Plan Is a 81-year-old male with a PMH of HTN, A. fib, h/o CVA, Neurogenic Bladder w/ Indwelling Carrasco and Recurrent UTI who was brought to the ER by EMS secondary to AMS noted by Daughter/Son-in-Law. Per family, pt had Carrasco replaced yesterday, today was noted to be acting more confused. Per Daughter, pt is normally awake, but minimally responsive, answers few yes/no questions and overall is completely dependent on others for ADLs. Daughter states pt was difficult to arouse. States "this always happens after they take out the catheter". On arrival, BP 136/61, HR 69, O2 sat 96% on RA, Afebrile. CBC unremarkable. Creatinine 1.43, previously 1.09 on 01/09/17. Lactic Acid 6.2, s/ p IVF in ER, repeat Lactic Acid 2.3. U/a positive for UTI. CT Head w/ no acute findings. CXR stable. S/p Blood/Urine Cultures, IV Rocephin in ER. Encephalopathy: acute onset of lethargy/confusion suspect secondary to UTI. - CT Head reviewed with no acute findings Likely secondary to UTI - Mental status currently improved, per family back to baseline. - Continue neuro Checks q4h. Urinary tract infection suspect secondary to history of neurogenic bladder and chronic indwelling carrasco catheter. - Recurrent UTI, s/p Carrasco exchange yesterday. - Follow up Urine/Blood Cultures. Looking back at records from January, patient with previous UTI, culture grew enterococcus faecalis resistant to Cipro and sensitive to Ceftriaxone. Will dc Cipro for now and start on Ceftriaxone until urine culture results. Follow. - Continue IVF for hydration. Acute kidney injury suspect secondary to dehydration from UTI. - Creatinine 1.43, previously 1.09 on 01/09/17 - Labs are pending for this am. Follow. Lactic Acidosis, improved. - Lactate 6.2 --> 2.3 --> 1.8. - No evidence of sepsis, acidosis likely secondary to dehydration. - S/p IVF in ER. Continue IVF Hypokalemia, mild: K+ 3.3. Labs pending this am. Replace as needed. H/o CVA: bed-bound/confused at baseline, requires assistance w/ ADL, Daughter is environmental engineering technician. Resume home medications. History of atrial fibrillation. Continue Eliquis. Controlled rate on monitor. Continue cardiac telemetry. DVT Prophylaxis: On Eliquis Problem Qualifiers (1) UTI (urinary tract infection): Qualified Codes: N30.00 - Acute cystitis without hematuria Alicja Ny Mar 11, 2017 10:33
[2017-03-11 11:37] VITALS: BP 116/59; PULSE 43; RESP 16; TEMP 97.4; O2SAT 98
[2017-03-11] MEDS ORDERED: cefTRIAXone INJ 1,000 MG in SODIUM CHLORIDE 0.9% INJ 100 ML IV SCH (12:00)
[2017-03-11 13:14] LABS: AUTOMATED NEUTROPHIL # 3.4 TH/MM3 (1.8-7.7); BASOPHIL % 0.4 % (0.0-2.0); EOSINOPHIL # 0.1 TH/MM3 (0-0.4); EOSINOPHIL % 1.3 % (0.0-4.0); HEMATOCRIT 41.2 % (39.0-51.0); HEMO FLAGS DIFF FINAL; LYMPH % 32.9 % (9.0-44.0); MEAN CELL VOLUME 87.3 FL (80.0-100.0); MEAN CORPUSCULAR HEMOGLOBIN 28.2 PG (27.0-34.0); MEAN CORPUSCULAR HGB CONC 32.3 % (32.0-36.0); MONO % 8.1 % (0.0-8.0); NEUT % 57.3 % (16.0-70.0); PLATELET COUNT 153 TH/MM3 (150-450); RED BLOOD COUNT 4.72 MIL/MM3 (4.50-5.90); RED CELL DISTRIBUTION WIDTH 14.6 % (11.6-17.2)
[2017-03-11 13:40] LABS: ALKALINE PHOSPHATASE 56 U/L (45-117); ALT (GPT) 14 U/L (12-78); ANION GAP 8 MEQ/L (5-15); AST (GOT) 19 U/L (15-37); BICARBONATE 24.3 MEQ/L (21.0-32.0); CHLORIDE 108 MEQ/L (98-107); GLOMERULAR FILTRATION RATE 86 ML/MIN (>89); POTASSIUM 3.3 MEQ/L (3.5-5.1); SODIUM (NA) 140 MEQ/L (136-145); TOTAL BILIRUBIN ADULT 0.7 MG/DL (0.2-1.0)
[2017-03-11 13:41] LABS: BLOOD UREA NITROGEN 11 MG/DL (7-18)
[2017-03-11 13:56] LABS: FREE T3 1.87 PG/ML (2.18-3.98); FREE T4 1.15 NG/DL (0.76-1.46)
[2017-03-11] MEDS ORDERED: CIPR-9 PO (15:31)
[2017-03-11] MEDS ORDERED: LEVO100T5 PO (15:34)
--- NOTE | 2017-03-11 15:35 | HHI.DCPOC ---
Discharge Care Plan Diagnosis: (1) Lactic acid acidosis (2) Encephalopathy (3) ALEXIS (acute kidney injury) (4) H/O: CVA (cerebrovascular accident) (5) Urinary retention (6) UTI (urinary tract infection) (7) HTN (hypertension) Additional Problems UTI Goals to Promote Your Health * To prevent worsening of your condition and complications * To maintain your health at the optimal level Directions to Meet Your Goals Take your medications as prescribed Follow your dietary instruction Follow activity as directed Keep your appointments as scheduled Take your immunizations and boosters as scheduled If your symptoms worsen call your PCP, if no PCP go to Urgent Care Center or Emergency Room Smoking is Dangerous to Your Health. Avoid second hand smoke Call the 24-hour hour crisis hotline for domestic abuse at Alicja Ny Mar 11, 2017 15:35
== END 2017-03-11 16:12 | disposition home or self-care (01) ==
LOC: NEPC 14:27 → NEDA 19:32 → NEPHCDU 21:46
PROVIDERS: ADMIT Hospitalist; ATTEND Hospitalist
DX: G93.40 Encephalopathy, unspecified (principal); E87.2 Acidosis; N17.9 Acute kidney failure, unspecified; E86.0 Dehydration; N30.00 Acute cystitis without hematuria; B96.5 Pseudomonas (aeruginosa) (mallei) (pseudomallei) as the cause of diseases classified elsewhere; N31.9 Neuromuscular dysfunction of bladder, unspecified; I48.91 Unspecified atrial fibrillation; I10 Essential (primary) hypertension; E87.6 Hypokalemia; E03.9 Hypothyroidism, unspecified; F03.90 Unspecified dementia, unspecified severity, without behavioral disturbance, psychotic disturbance, mood disturbance, and anxiety; Z86.73 Personal history of transient ischemic attack (TIA), and cerebral infarction without residual deficits; Z87.440 Personal history of urinary (tract) infections
CPT/HCPCS: 51702; 70450; 71010; 80053; 80177; 81001; 82550; 83605; 83735; 84439; 84443; 84481; 84484; 85025; 85610; 85730; 87040; 87077; 87086; 87186; 93005; 96361; 96365; 96376; 97163; 99285; G0378; G8987; G8988; J0696; J7030

== ENCOUNTER 2017-03-26 10:39 | Emergency (ER) | payer MEDICARE ==
[~2017-03-26] VITALS: Ht 177.8 cm; Wt 73.0 kg
[~2017-03-26 10:39] MED LIST changes: +CIPR-9 PO; -LEVO.075 PO; +LEVO100T5 PO
[2017-03-26 10:51] VITALS: BP 166/85; PULSE 80; RESP 26; TEMP 98; O2SAT 95
[2017-03-26 10:59] VITALS: PULSE 77
[2017-03-26] MEDS ORDERED: SODIUM CHLORIDE 0.9% FLUSH 10 ML FLUSH IVF PRN (11:00)
--- NOTE | 2017-03-26 11:19 | RADRPT ---
EXAM DATE/TIME: 03/26/2017 10:56 [facility] COMPARISON: MRI BRAIN W/O CONTRAST, June 01, 2015, 18:22. CT BRAIN W/O CONTRAST, October 26, 2015, 17:41. CT BR AIN W/O CONTRAST, January 08, 2017, 10:11. CT BRAIN W/O CONTRAST, March 10, 2017, 15:34. INDICATIONS : Altered mental status. RADIATION DOSE: 56.35 CTDIvol (mGy) MEDICAL HISTORY : Stroke. Hypertension. Cardiovascular disease SURGICAL HISTORY : None. ENCOUNTER: Initial ACUITY: 1 day PAIN SCALE: Non-responsive LOCATION: Bilateral head TECHNIQUE: Multiple contiguous axial images were obtained of the head. Using automated exposure control and adj ustment of the mA and/or kV according to patient size, radiation dose was kept as low as reasonably a chievable to obtain optimal diagnostic quality images. DICOM format image data is available electro nically for review and comparison. FINDINGS: CEREBRUM: Old left MCA infarction with encephalomalacia in the temporal and parietal lobes is similar to prior CT 10/26/15. There is associated extradural enlargement of the left lateral ventricle. No evidence o f acute blood products or midline shift. POSTERIOR FOSSA: The cerebellum and brainstem are intact. The 4th ventricle is midline. The cerebellopontine angle i s unremarkable. EXTRACRANIAL: The visualized portion of the orbits is intact. SKULL: The calvaria is intact. No evidence of skull fracture. CONCLUSION: No acute findings. Stable old left MCA infarction. Anthony Jeter MD on March 26, 2017 at 11:15 Board Certified Radiologist. This report was verified electronically.
[2017-03-26 11:20] LABS: BASOPHIL % 0.5 % (0.0-2.0); EOSINOPHIL # 0.1 TH/MM3 (0-0.4); EOSINOPHIL % 1.3 % (0.0-4.0); HEMATOCRIT 44.6 % (39.0-51.0); HEMOGLOBIN 14.5 GM/DL (13.0-17.0); LYMPH % 59.3 % (9.0-44.0); LYMPHOCYTE # 5.2 TH/MM3 (1.0-4.8); MEAN CORPUSCULAR HEMOGLOBIN 28.6 PG (27.0-34.0); MEAN CORPUSCULAR HGB CONC 32.5 % (32.0-36.0); MEAN PLATELET VOLUME 10.5 FL (7.0-11.0); MONO % 4.8 % (0.0-8.0); MONOCYTE # 0.4 TH/MM3 (0-0.9); NEUT % 34.1 % (16.0-70.0); PLATELET COUNT 186 TH/MM3 (150-450); RED BLOOD COUNT 5.07 MIL/MM3 (4.50-5.90); WHITE BLOOD COUNT 8.8 TH/MM3 (4.0-11.0)
[2017-03-26 11:24] LABS: INTERNATIONAL NORMALIZED RATIO 1.2 RATIO; PROTHROMBIN TIME - PATIENT 13.3 SEC (9.8-11.6)
[2017-03-26 11:47] LABS: BACTERIA, URINE FEW /hpf; BILIRUBIN, URINE NEG (NEG); BLOOD, URINE MOD (NEG); GLUCOSE,URINE NEG (NEG); HYALINE CAST, URINE 22 /lpf (RARE); KETONE, URINE NEG (NEG); MUCUS URINE FEW /lpf (OCC); NITRITE,URINE NEG (NEG); SQUAMOUS EPITHELIAL CELL URINE 3 /hpf (0-5); URINE COLOR YELLOW (YELLW/STRAW); URINE LEUKOCYTE ESTERASE SMALL (NEG); WHITE BLOOD CELL CLUMPS FEW
[2017-03-26 11:54] LABS: LYMPHOCYTES 65 % (9-44); MONOCYTES 7 % (0-8); NEUTROPHIL # MANUAL DIFF 2.5 TH/MM3 (1.8-7.7); POLYS (SEG NEUTROPHILS) 28 % (16-70)
[2017-03-26 11:55] LABS: ACANTHOCYTES OCC (NORMAL); OVALOCYTES 1+ (NORMAL)
--- NOTE | 2017-03-26 12:40 | PD ---
HPI Chief Complaint: Altered Mental Status Time Seen by Provider: 10:46 Travel History International Travel<30 days: No Contact w/Intl Traveler<30days: No Traveled to known affect area: No History of Present Illness HPI The patient is 81 years old and arrives to the ER by EMS. The patient evidently became aphasic about 1 hour prior to ER arrival. His daughter was with him before and after the change of mental status. The patient takes Eloquis for atrial fibrillation. It's a history of prior stroke. Right-sided deficits observed. That normally he can speak in short sentences. He was nonverbal according EMS. The patient's history of severe UTIs. He is taking Cipro twice daily for treatment. Evidently similar prior episodes of altered mental status have been due to urinary tract infection. The family notes a decreased urine output. PFSH Past Medical History Hx Anticoagulant Therapy: Yes (eliquis ) Asthma: No Atrial Fibrillation: Yes Anxiety: No Depression: No Heart Rhythm Problems: Yes (AFIB) Cancer: No Cardiovascular Problems: Yes ([place] DURING CVA) High Cholesterol: Yes Chemotherapy: No Chest Pain: No Congestive Heart Failure: No COPD: No Cerebrovascular Accident: Yes Diabetes: No Diminished Hearing: No Endocrine: No Gastrointestinal Disorders: No Genitourinary: Yes (RETENTION, RECURRENT UTIs) Hepatitis: No Hiatal Hernia: No Hypertension: Yes Immune Disorder: No Implanted Vascular Access Dvce: Yes Musculoskeletal: No Neurologic: Yes (CVA 2014) Psychiatric: No Reproductive: No Respiratory: No Radiation Therapy: No Sleep Apnea: No Thyroid Disease: Yes Tetanus Vaccination: Unknown Past Surgical History Abdominal Surgery: Yes AICD: No Appendectomy: Yes Body Medical Devices: INDWELLING CATHETER Cardiac Surgery: No Endocrine Surgery: No Eye Surgery: No Genitourinary Surgery: No Gynecologic Surgery: No Joint Replacement: No Neurologic Surgery: No Oral Surgery: No Pacemaker: No Thoracic Surgery: No Other Surgery: Yes (APPENDECTOMY 1995) Social History Alcohol Use: No Tobacco Use: No Substance Use: No Allergies-Medications (Allergen,Severity, Reaction): Coded Allergies: Penicillins (Verified Allergy, Severe, Nausea/Vomiting, 03/10/17) Reported Meds & Prescriptions Reported Meds & Active Scripts Active Macrobid (Nitrofurantoin Monoh/Nitrofur Macro) 100 Mg Cap 100 Mg PO BID 5 Days Cipro (Ciprofloxacin HCl) 500 Mg Tab 500 Mg PO BID 7 Days Levothyroxine (Levothyroxine Sodium) 100 Mcg Tab 100 Mcg PO DAILY Cipro (Ciprofloxacin HCl) 500 Mg Tab 500 Mg PO BID 14 Days Nitrofurantoin Macrocrystal 50 Mg Cap 50 Mg PO DAILY Reported Hydrochlorothiazide 25 Mg Tab 25 Mg PO DAILY Losartan (Losartan Potassium) 50 Mg Tab 50 Mg PO DAILY Metoprolol Tartrate 50 Mg Tab 50 Mg PO BID Pravastatin 80 Mg Tab 80 Mg PO DAILY Vitamin B Complex (B-Complex Vitamins) 1 Tab Eliquis (Apixaban) 5 Mg Tab 5 Mg PO BID Review of Systems ROS Limitations: Clinical Condition, Altered Mental Status Physical Exam Narrative GENERAL: 81 yo M, WNWD, mild distress 2/2 anxiety SKIN: Warm and dry. HEAD: Atraumatic. Normocephalic. EYES: Pupils equal and round. No scleral icterus. No injection or drainage. ENT: No nasal bleeding or discharge. Mucous membranes pink and moist. NECK: Trachea midline. No JVD. CARDIOVASCULAR: Regular rate and rhythm. RESPIRATORY: No accessory muscle use. Clear to auscultation. Breath sounds equal bilaterally. GASTROINTESTINAL: Abdomen soft, non-tender, nondistended. Hepatic and splenic margins not palpable. GENITOURINARY: Ayon leg bag with dark yellow urine. MUSCULOSKELETAL: Extremities without clubbing, cyanosis, or edema. No obvious deformities. NEUROLOGICAL: Patient is awake. Pupils equal and reactive to light. Patient moves all extremities. Patient is nonverbal. No facial asymmetry. PSYCHIATRIC: Appropriate mood and affect; insight and judgment normal. Data Data Last Documented VS Vital Signs Date Time Temp Pulse Resp B/P (MAP) Pulse Ox O2 Delivery O2 Flow Rate FiO2 03/26/17 15:09 80 20 144/60 (88) 97 03/26/17 10:51 98.0 Vital signs reviewed Orders Orders Electrocardiogram (03/26/17 10:46) Prothrombin Time / Inr (Pt) (03/26/17 10:46) Act Partial Throm Time (Ptt) (03/26/17 10:46) Complete Blood Count With Diff (03/26/17 10:46) Comprehensive Metabolic Panel (03/26/17 10:46) Creatine Kinase (Cpk) (03/26/17 10:46) Troponin I (03/26/17 10:46) Urinalysis - C+S If Indicated (03/26/17 10:46) Ct Brain W/O Iv Contrast(Rout) (03/26/17 10:46) Ecg Monitoring (03/26/17 10:46) Iv Access Insert/Monitor (03/26/17 10:46) Oximetry (03/26/17 10:46) Blood Glucose (03/26/17 10:46) Sodium Chloride 0.9% Flush (Ns Flush) (03/26/17 11:00) Urine Culture (03/26/17 11:15) Ed Discharge Order (03/26/17 14:32) Labs Laboratory Tests Test 03/26/17 10:50 03/26/17 11:15 03/26/17 12:15 White Blood Count 8.8 TH/MM3 Red Blood Count 5.07 MIL/MM3 Hemoglobin 14.5 GM/DL Hematocrit 44.6 % Mean Corpuscular Volume 88.0 FL Mean Corpuscular Hemoglobin 28.6 PG Mean Corpuscular Hemoglobin Concent 32.5 % Red Cell Distribution Width 15.0 % Platelet Count 186 TH/MM3 Mean Platelet Volume 10.5 FL Neutrophils (%) (Auto) 34.1 % Lymphocytes (%) (Auto) 59.3 % Monocytes (%) (Auto) 4.8 % Eosinophils (%) (Auto) 1.3 % Basophils (%) (Auto) 0.5 % Neutrophils # (Auto) 3.0 TH/MM3 Lymphocytes # (Auto) 5.2 TH/MM3 Monocytes # (Auto) 0.4 TH/MM3 Eosinophils # (Auto) 0.1 TH/MM3 Basophils # (Auto) 0.0 TH/MM3 CBC Comment AUTO DIFF Differential Total Cells Counted 100 Neutrophils % (Manual) 28 % Lymphocytes % 65 % Monocytes % 7 % Neutrophils # (Manual) 2.5 TH/MM3 Differential Comment FINAL DIFF MANUAL Platelet Estimate NORMAL Platelet Morphology Comment ENLARGED Ovalocytes 1+ Acanthocytes OCC Prothrombin Time 13.3 SEC Prothromb Time International Ratio 1.2 RATIO Activated Partial Thromboplast Time 27.6 SEC Urine Color YELLOW Urine Turbidity CLOUDY Urine pH 6.0 Urine Specific [place] 1.023 Urine Protein 300 mg/dL Urine Glucose (UA) NEG mg/dL Urine Ketones NEG mg/dL Urine Occult Blood MOD Urine Nitrite NEG Urine Bilirubin NEG Urine Urobilinogen LESS THAN 2.0 MG/DL Urine Leukocyte Esterase SMALL Urine RBC 50 /hpf Urine WBC 51 /hpf Urine WBC Clumps FEW Urine Squamous Epithelial Cells 3 /hpf Urine Bacteria FEW /hpf Urine Hyaline Casts 22 /lpf Urine Granular Casts 25 /lpf Urine Mucus FEW /lpf Microscopic Urinalysis Comment CULTURE INDICATED Total Protein 7.5 GM/DL Total Bilirubin 0.7 MG/DL Anion Gap 8 MEQ/L Estimat Glomerular Filtration Rate 59 ML/MIN Total Creatine Kinase 108 U/L Troponin I 0.02 NG/ML MDM Medical Decision Making Medical Screen Exam Complete: Yes Emergency Medical Condition: Yes Differential Diagnosis UTI, stroke, electrolyte imbalance Narrative Course CCBC & BMP Diagram 03/26/17 10:50 03/26/17 12:15 Total Protein 7.5, Total Bilirubin 0.7 EKG shows atrial fibrillation rate 67 with a left bundle branch block pattern Last [address] 03/26/17 1046 Signed Impressions: Service Date/Time: Sunday, March 26, 2017 10:56 - CONCLUSION: No acute findings. Stable old left MCA infarction. Anthony Jeter MD The patient is resting comfortably and feels better, is alert and in no distress. The patients results and examination findings were discussed. The repeat examination is unremarkable and benign. The history, exam, diagnostic testing, and current condition do not suggest any significant pathology to warrant further testing, continued ED treatment, admission, or surgical evaluation at this point. The vital signs have been stable. The patient does not have uncontrollable pain, intractable vomiting, or other significant symptoms. The patient's condition is stable and appropriate for discharge. The patient will pursue further outpatient evaluation with a primary care physician or other designated or consulting physician as indicated in the discharge instructions. The patient expressed understanding and was agreeable with this plan. Diagnosis Primary Impression: UTI (urinary tract infection) Qualified Codes: N30.00 - Acute cystitis without hematuria Additional Impression: Altered mental status Qualified Codes: R41.82 - Altered mental status, unspecified Admitting Information Admitting Physician Requests: Observation Referrals: Primary Care Physician 2 days Additional Instructions: You have a choice when it comes to health care, and we are glad that you chose [facility]. Hopefully, we have met your expectations on today's visit. You are welcome to return to [facility] at any time, as we are committed to meeting the health care needs of our community. INCREASE CIPRO DOSE TO 500MG TWICE DAILY PRESCRIBED. Med/Other Pt SpecificInfo: Prescription(s) given Scripts Nitrofurantoin Monohydrate Macrocrystals (Macrobid) 100 Mg Cap 100 MG PO BID for Infection for 5 Days, #10 CAP 0 Refills Prov: Edgard Smith MD 03/26/17 Ciprofloxacin (Cipro) 500 Mg Tab 500 MG PO BID for Infection for 7 Days, #14 TAB 0 Refills Prov: Edgard Smith MD 03/26/17 Disposition: 01 DISCHARGE HOME Condition: Stable Edgard Smith MD Mar 26, 2017 12:40
[2017-03-26 14:00] VITALS: PULSE 68; O2SAT 96
[2017-03-26 14:06] LABS: ALKALINE PHOSPHATASE 57 U/L (45-117); ALT (GPT) 24 U/L (12-78); AST (GOT) 33 U/L (15-37); BICARBONATE 25.4 MEQ/L (21.0-32.0); BLOOD UREA NITROGEN 22 MG/DL (7-18); CALCIUM 8.9 MG/DL (8.5-10.1); CHLORIDE 108 MEQ/L (98-107); GLOMERULAR FILTRATION RATE 59 ML/MIN (>89); GLUCOSE,RANDOM 135 MG/DL (74-106); SODIUM (NA) 141 MEQ/L (136-145)
[2017-03-26 14:07] LABS: TOTAL BILIRUBIN ADULT 0.7 MG/DL (0.2-1.0); TOTAL PROTEIN 7.5 GM/DL (6.4-8.2); TROPONIN I 0.02 NG/ML (0.02-0.05)
[2017-03-26] MEDS ORDERED: CIPR-9 PO (14:12)
[2017-03-26 15:09] VITALS: BP 144/60
[2017-03-26] MEDS ORDERED: MACR100C2 PO (15:15)
--- NOTE | 2017-03-28 07:38 | EKG ---
Date Performed: 03/26/2017 Time Performed: 12:17:07 PTAGE: 81 years EKG: ATRIAL FIBRILLATION POSSIBLE LEFT VENTRICULAR HYPERTROPHY ST DEVIATION AND MARKED T-WAVE AB NORMALITY, CONSIDER ANTEROLATERAL ISCHEMIA ST DEVIATION AND MODERATE T-WAVE ABNORMALITY, CONSIDER INF ERIOR ISCHEMIA ABNORMAL ECG PREVIOUS TRACING DOCTOR: Raul Hansen Interpretating Date/Time 03/28/2017 07:36:34
== END 2017-03-26 15:45 | disposition home or self-care (01) ==
LOC: NEPC 10:39
DX: N30.00 Acute cystitis without hematuria (principal); B96.89 Other specified bacterial agents as the cause of diseases classified elsewhere; I48.91 Unspecified atrial fibrillation; Z79.01 Long term (current) use of anticoagulants
CPT/HCPCS: 70450; 80053; 81001; 82550; 84484; 85007; 85027; 85610; 85730; 87086; 87106; 93005

== ENCOUNTER 2017-04-14 12:01 | Emergency (ER) | payer MEDICARE ==
[~2017-04-14] VITALS: Ht 170.2 cm; Wt 78.0 kg
[~2017-04-14 12:01] MED LIST changes: +MACR100C2 PO; -VITATAB11; +VITATAB11 PO
[2017-04-14 12:10] VITALS: BP 132/67; PULSE 80; RESP 20; O2SAT 92
[2017-04-14] MEDS ORDERED: AMLO5TAB2 PO (12:24)
[2017-04-14 12:26] VITALS: O2SAT 97
[2017-04-14] MEDS ORDERED: SODIUM CHLORID 0.9% 500 ML INJ 500 ML IV ONE (12:30)
[2017-04-14] MEDS ORDERED: SODIUM CHLORIDE 0.9% FLUSH 5 ML FLUSH IV FLUSH PRN (12:30)
--- NOTE | 2017-04-14 12:38 | PD ---
HPI Chief Complaint: Altered Mental Status Time Seen by Provider: 12:22 Travel History International Travel<30 days: No (unable to confirm) Contact w/Intl Traveler<30days: No (unable to confirm) Traveled to known affect area: No (unable to confirm) History of Present Illness HPI 81-year-old male with PMH of stroke with residual right-sided deficit and aphasia, A. fib, on Eliquis presents to the ED via EMS for evaluation of altered mental status. The patient is unable to provide any history. He does follow commands. The patient's daughter is at bedside and states that this morning they noticed he was more somnolent than usual. She states that "this happens every time he gets his catheter changed." Last Ayon exchange 2 days ago. She states that the patient has been acting normally otherwise, has a good appetite and has not had a fever. EMS reported the patient had decreased urinary output. However, the daughter at bedside states that she came this morning emptied his Ayon bag, flush the catheter and he had "a normal amount of urine" in the bag. PFSH Past Medical History Hx Anticoagulant Therapy: Yes (eliquis ) Asthma: No Atrial Fibrillation: Yes Anxiety: No Depression: No Heart Rhythm Problems: Yes (AFIB) Cancer: No Cardiovascular Problems: Yes ([place] DURING CVA) High Cholesterol: Yes Chemotherapy: No Chest Pain: No Congestive Heart Failure: No COPD: No Cerebrovascular Accident: Yes (right side deficit) Diabetes: No Diminished Hearing: No Endocrine: No Gastrointestinal Disorders: No Genitourinary: Yes (RETENTION, RECURRENT UTIs) Hepatitis: No Hiatal Hernia: No Hypertension: Yes Immune Disorder: No Implanted Vascular Access Dvce: Yes Musculoskeletal: No Neurologic: Yes (CVA 2014) Psychiatric: No Reproductive: No Respiratory: No Radiation Therapy: No Sleep Apnea: No Thyroid Disease: Yes Influenza Vaccination: No Past Surgical History Abdominal Surgery: Yes AICD: No Appendectomy: Yes Body Medical Devices: INDWELLING CATHETER Cardiac Surgery: No Endocrine Surgery: No Eye Surgery: No Genitourinary Surgery: No Gynecologic Surgery: No Joint Replacement: No Neurologic Surgery: No Oral Surgery: No Pacemaker: No Thoracic Surgery: No Other Surgery: Yes (APPENDECTOMY 1995/ carotid artery) Social History Alcohol Use: No Tobacco Use: No Substance Use: No Allergies-Medications (Allergen,Severity, Reaction): Coded Allergies: Penicillins (Verified Allergy, Severe, Nausea/Vomiting, 04/14/17) Reported Meds & Prescriptions Reported Meds & Active Scripts Active Cipro (Ciprofloxacin HCl) 500 Mg Tab 500 Mg PO BID 7 Days Levothyroxine (Levothyroxine Sodium) 100 Mcg Tab 100 Mcg PO DAILY Reported Amlodipine (Amlodipine Besylate) 5 Mg Tab 5 Mg PO DAILY Hydrochlorothiazide 25 Mg Tab 25 Mg PO DAILY Losartan (Losartan Potassium) 50 Mg Tab 50 Mg PO DAILY Metoprolol Tartrate 50 Mg Tab 50 Mg PO BID Pravastatin 80 Mg Tab 80 Mg PO DAILY Vitamin B Complex (B-Complex Vitamins) 1 Tab 1 Tab PO DAILY Eliquis (Apixaban) 5 Mg Tab 5 Mg PO BID Review of Systems Except as stated in HPI: all other systems reviewed are Neg Physical Exam Narrative GENERAL: Well-nourished, well-developed black male in no acute distress. SKIN: Focused skin assessment warm/dry. HEAD: Normocephalic. EYES: No scleral icterus. No injection or drainage. NECK: Supple, trachea midline. No JVD or lymphadenopathy. CARDIOVASCULAR: Regular rate and rhythm without murmurs, gallops, or rubs. RESPIRATORY: Breath sounds clear and equal bilaterally. No accessory muscle use. GASTROINTESTINAL: Abdomen soft, non-tender, nondistended. Active bowel sounds. GENITOURINARY: Circumcised. Testes descended bilaterally without evidence of rotation. No lesions or erythema. Ayon catheter in place, clear urine in the bag. MUSCULOSKELETAL: No cyanosis, or edema. NEUROLOGICAL: Awake and alert. Aphasic. Residual right-sided deficit. No worse today according to the daughter at bedside. BACK: Nontender without obvious deformity. No CVA tenderness. Data Data Last Documented VS Vital Signs Date Time Temp Pulse Resp B/P (MAP) Pulse Ox O2 Delivery O2 Flow Rate FiO2 04/14/17 12:49 69 18 100 Room Air 04/14/17 12:10 132/67 (88) Orders Orders Electrocardiogram (04/14/17 12:24) Ammonia (04/14/17 12:24) Complete Blood Count With Diff (04/14/17 12:24) Comprehensive Metabolic Panel (04/14/17 12:24) Troponin I (04/14/17 12:24) Urinalysis - C+S If Indicated (04/14/17 12:24) Chest, Single Ap (04/14/17 12:24) Blood Glucose (04/14/17 12:24) Ecg Monitoring (04/14/17 12:24) Iv Access Insert/Monitor (04/14/17 12:24) Oximetry (04/14/17 12:24) Sodium Chloride 0.9% Flush (Ns Flush) (04/14/17 12:30) Vascular Access Team Consult/P PRN (04/14/17 13:02) Vascular Poc Ultrasound (04/14/17 ) Urine Culture (04/14/17 12:50) Ciprofloxacin (Cipro) (04/14/17 14:15) Potassium Chloride (Kcl) (04/14/17 14:15) Ed Discharge Order (04/14/17 14:16) Labs Laboratory Tests Test 04/14/17 12:50 White Blood Count 7.5 TH/MM3 Red Blood Count 4.94 MIL/MM3 Hemoglobin 14.4 GM/DL Hematocrit 43.1 % Mean Corpuscular Volume 87.3 FL Mean Corpuscular Hemoglobin 29.1 PG Mean Corpuscular Hemoglobin Concent 33.3 % Red Cell Distribution Width 14.7 % Platelet Count 196 TH/MM3 Mean Platelet Volume 11.2 FL Neutrophils (%) (Auto) 43.0 % Lymphocytes (%) (Auto) 50.3 % Monocytes (%) (Auto) 4.6 % Eosinophils (%) (Auto) 1.3 % Basophils (%) (Auto) 0.8 % Neutrophils # (Auto) 3.2 TH/MM3 Lymphocytes # (Auto) 3.8 TH/MM3 Monocytes # (Auto) 0.3 TH/MM3 Eosinophils # (Auto) 0.1 TH/MM3 Basophils # (Auto) 0.1 TH/MM3 CBC Comment DIFF FINAL Differential Comment Urine Color YELLOW Urine Turbidity CLOUDY Urine pH 6.0 Urine Specific [place] 1.020 Urine Protein 100 mg/dL Urine Glucose (UA) NEG mg/dL Urine Ketones NEG mg/dL Urine Occult Blood LARGE Urine Nitrite NEG Urine Bilirubin NEG Urine Urobilinogen LESS THAN 2.0 MG/DL Urine Leukocyte Esterase LARGE Urine RBC /hpf Urine WBC /hpf Urine WBC Clumps OCC Urine Squamous Epithelial Cells 1 /hpf Urine Bacteria MANY /hpf Urine Hyaline Casts 6 /lpf Urine Mucus MOD /lpf Urine Sperm RARE Microscopic Urinalysis Comment CATH-CULTURE IND Blood Urea Nitrogen 16 MG/DL Creatinine 1.42 MG/DL Random Glucose 164 MG/DL Total Protein 6.8 GM/DL Albumin 3.6 GM/DL Calcium Level 8.5 MG/DL Alkaline Phosphatase 51 U/L Aspartate Amino Transf (AST/SGOT) 22 U/L Alanine Aminotransferase (ALT/SGPT) 36 U/L Total Bilirubin 0.8 MG/DL Sodium Level 139 MEQ/L Potassium Level 3.1 MEQ/L Chloride Level 105 MEQ/L Carbon Dioxide Level 22.6 MEQ/L Anion Gap 11 MEQ/L Estimat Glomerular Filtration Rate 58 ML/MIN Ammonia 29 MCMOL/L Troponin I 0.02 NG/ML MDM Medical Decision Making Medical Screen Exam Complete: Yes Emergency Medical Condition: Yes Differential Diagnosis UTI versus metabolic derangement versus ALEXIS versus other Narrative Course 81-year-old male with PMH of stroke with residual right-sided deficit and aphasia, A. fib, on Eliquis presents to the ED via EMS for evaluation of altered mental status. The patient is unable to provide any history. He does follow commands. The patient's daughter is at bedside and states that this morning they noticed he was more somnolent than usual. She states that "this happens every time he gets his catheter changed." Last Ayon exchange 2 days ago. She states that the patient has been acting normally otherwise, has a good appetite and has not had a fever. Vitals reviewed. Physical exam reveals a nontoxic-appearing black male in no acute distress. Chest CTAB. Abdomen soft and nontender. Ayon in place with pale fluid in the bag. No lower extremity edema. The patient is aphasic with residual right-sided deficit with the daughter states is at baseline. EKG rate 71, A. fib, deep T waves in the lateral leads, similar to previous EKGs. Reviewed by Dr. Glez. CXR: No acute infiltrate. No change from prior. Cardiac enzymes negative 1. CBC: WBC 7.5. Hemoglobin 14.4. CMP BUN 16, creatinine 1.42. Potassium 3.1. Glucose 154. UA: Cloudy, large leukocyte esterase, large occult blood, innumerable WBCs, occasional WBC clumps, many bacteria. Culture pending. Patient's administered 40meq of potassium by mouth. I discussed the results of the workup with the patients family who state that the patient is returned to baseline and would like to take him home. Review of the record reveals previous similar creatinine levels, last urine culture grew pseudomonas, sensitive to Cipro. Patient is prescribed 500 mg Cipro twice a day 7 days, first dose administered in the ED. The patient is instructed to stay hydrated, take all medication as prescribed, follow-up with his primary care provider. I discussed reasons to return to the ED with family members who indicated understanding of the discharge instructions and are agreeable with the care plan. The patient is stable and discharged home. Diagnosis Primary Impression: UTI (urinary tract infection) Qualified Codes: T83.511A - Infection and inflammatory reaction due to indwelling urethral catheter, initial encounter; N39.0 - Urinary tract infection , site not specified Additional Impression: Hypokalemia Referrals: Primary Care Physician Patient Instructions: Catheter-associated Urinary Tract Infection (ED), General Instructions Additional Instructions: Rest, hydrate. Take all the antibiotics as they are prescribed. In other words take all of the medication until it is all gone. Follow-up with primary care provider. Return to the ED for any urgent or emergent medical condition. Med/Other Pt SpecificInfo: Prescription(s) given Scripts Ciprofloxacin (Cipro) 500 Mg Tab 500 MG PO BID for Infection for 7 Days, #14 TAB 0 Refills Prov: Jennifer Glez DO 04/14/17 Disposition: 01 DISCHARGE HOME Condition: Stable Brittanie Espinoza Apr 14, 2017 12:38
--- NOTE | 2017-04-14 12:57 | RADRPT ---
EXAM DATE/TIME: 04/14/2017 12:29 [facility] COMPARISON: CHEST SINGLE AP, March 10, 2017, 15:01. INDICATIONS : Short of Breath, Syncopal Episode MEDICAL HISTORY : Stroke. Hypertension. Cardiovascular disease SURGICAL HISTORY : None. ENCOUNTER: Initial ACUITY: 1 day PAIN SCORE: Non-responsive. LOCATION: Bilateral chest FINDINGS: A single view of the chest demonstrates stable elevation of the left hemidiaphragm with dextropositio n of the heart and mediastinal structures. Heart size is borderline prominent but well compensated. L ungs are grossly clear except for some mild atelectatic changes in the left base. CONCLUSION: 1. Stable elevation of left hemidiaphragm with dextroposition of the heart and mediastinum. 2. No acute infiltrate. 3. No change from prior. Alvarez Ambrocio MD on April 14, 2017 at 12:54 Board Certified Radiologist. This report was verified electronically.
[2017-04-14 13:31] LABS: AUTOMATED NEUTROPHIL # 3.2 TH/MM3 (1.8-7.7); BASOPHIL # 0.1 TH/MM3 (0-0.2); BASOPHIL % 0.8 % (0.0-2.0); EOSINOPHIL # 0.1 TH/MM3 (0-0.4); EOSINOPHIL % 1.3 % (0.0-4.0); HEMATOCRIT 43.1 % (39.0-51.0); HEMO FLAGS DIFF FINAL; LYMPH % 50.3 % (9.0-44.0); LYMPHOCYTE # 3.8 TH/MM3 (1.0-4.8); MEAN CELL VOLUME 87.3 FL (80.0-100.0); MEAN CORPUSCULAR HEMOGLOBIN 29.1 PG (27.0-34.0); MEAN CORPUSCULAR HGB CONC 33.3 % (32.0-36.0); MONO % 4.6 % (0.0-8.0); PLATELET COUNT 196 TH/MM3 (150-450); RED BLOOD COUNT 4.94 MIL/MM3 (4.50-5.90); RED CELL DISTRIBUTION WIDTH 14.7 % (11.6-17.2); WHITE BLOOD COUNT 7.5 TH/MM3 (4.0-11.0)
[2017-04-14 13:50] LABS: ALT (GPT) 36 U/L (12-78); ANION GAP 11 MEQ/L (5-15); AST (GOT) 22 U/L (15-37); BICARBONATE 22.6 MEQ/L (21.0-32.0); BLOOD UREA NITROGEN 16 MG/DL (7-18); CHLORIDE 105 MEQ/L (98-107); GLOMERULAR FILTRATION RATE 58 ML/MIN (>89); POTASSIUM 3.1 MEQ/L (3.5-5.1); SODIUM (NA) 139 MEQ/L (136-145)
[2017-04-14 13:54] LABS: ALKALINE PHOSPHATASE 51 U/L (45-117); TOTAL BILIRUBIN ADULT 0.8 MG/DL (0.2-1.0)
[2017-04-14 14:06] LABS: BACTERIA, URINE MANY /hpf; BLOOD, URINE LARGE (NEG); GLUCOSE,URINE NEG (NEG); HYALINE CAST, URINE 6 /lpf (RARE); KETONE, URINE NEG (NEG); MUCUS URINE MOD /lpf (OCC); NITRITE,URINE NEG (NEG); SQUAMOUS EPITHELIAL CELL URINE 1 /hpf (0-5); URINE COLOR YELLOW (YELLW/STRAW)
[2017-04-14 14:07] LABS: COMMENT (UR) CATH-CULTURE IND; CULTURE IF INDICATED CATH CULTURE IND
[2017-04-14] MEDS ORDERED: CIPR-9 PO (14:13)
[2017-04-14] MEDS ORDERED: POTASSIUM CHLORIDE 20 MEQ CONTROLLED RELEASE TAB PO ONE (14:15)
[2017-04-14] MEDS ORDERED: CIPROFLOXACIN 500 MG TAB PO ONE (14:15)
[2017-04-14 14:30] VITALS: BP 135/67; PULSE 72; RESP 20; O2SAT 96
--- NOTE | 2017-04-15 13:11 | EKG ---
Date Performed: 04/14/2017 Time Performed: 12:11:13 PTAGE: 81 years EKG: Atrial fibrillation Left ventricular hypertrophy with secondary ST-T wave change PREVIOUS TRACING : 03/26/2017 12.17 Since previous tracing, no significant change. DOCTOR: Pool Mares Interpretating Date/Time 04/15/2017 13:10:48
== END 2017-04-14 15:00 | disposition home or self-care (01) ==
LOC: NEPC 12:01
DX: N39.0 Urinary tract infection, site not specified (principal); B96.20 Unspecified Escherichia coli [E. coli] as the cause of diseases classified elsewhere; E87.6 Hypokalemia; I48.91 Unspecified atrial fibrillation; I51.7 Cardiomegaly; I69.951 Hemiplegia and hemiparesis following unspecified cerebrovascular disease affecting right dominant side; I69.920 Aphasia following unspecified cerebrovascular disease; E78.00 Pure hypercholesterolemia, unspecified; I10 Essential (primary) hypertension
CPT/HCPCS: 71010; 80053; 81001; 82140; 84484; 85025; 87077; 87086; 87186; 93005; 99285

== ENCOUNTER 2017-08-17 10:03 | Emergency (ER) | payer MEDICARE, OTHER ==
[~2017-08-17] VITALS: Ht 172.7 cm; Wt 68.0 kg
[~2017-08-17 10:03] MED LIST changes: +AMLO5TAB2 PO; -MACR100C2 PO; -NITR1CAP37 PO
[2017-08-17 10:21] VITALS: BP 143/75; PULSE 65; RESP 18; TEMP 98.3; O2SAT 100
[2017-08-17] MEDS ORDERED: LEVE500T8 PO (10:43)
[2017-08-17] MEDS ORDERED: TAMS0.4C4 (10:43)
--- NOTE | 2017-08-17 10:47 | PD ---
HPI Chief Complaint: Complaint Time Seen by Provider: 10:31 Travel History International Travel<30 days: No Contact w/Intl Traveler<30days: No Traveled to known affect area: No History of Present Illness HPI The patient is a 81-year-old [place] male who presents emergency department with his daughter. They patient has a Carrasco catheter, chronically, that is changed every 2 weeks. The patient had his Carrasco catheter changed on Sunday, the daughter noted the patient had some blood in his urine with sediment on . The patient does take Eliquis. The patient continues to make urine, approximately 500 cc a day according to the daughter when she shows us on the bag, normal amount per daughter. The patient is a somewhat limited historian but denies any pain. The patient is seen by urologist, Dr. Adams. There has been no fever. No nausea or vomiting. PFSH Past Medical History Hx Anticoagulant Therapy: Yes (ELIQUIS) Asthma: No Atrial Fibrillation: Yes Anxiety: No Depression: No Heart Rhythm Problems: Yes (AFIB) Cancer: No Cardiovascular Problems: Yes (VT DURING CVA) High Cholesterol: Yes Chemotherapy: No Chest Pain: No Congestive Heart Failure: No COPD: No Cerebrovascular Accident: Yes (right side deficit, stroke 2014) Diabetes: No Diminished Hearing: No Endocrine: No Gastrointestinal Disorders: No Genitourinary: Yes (RETENTION, RECURRENT UTIs, carrasco replaced every 2 weeks ) Hepatitis: No Hiatal Hernia: No Hypertension: Yes Immune Disorder: No Implanted Vascular Access Dvce: Yes Musculoskeletal: No Neurologic: Yes (CVA 2014) Psychiatric: No Reproductive: No Respiratory: No Radiation Therapy: No Sleep Apnea: No Thyroid Disease: Yes Influenza Vaccination: No Past Surgical History Abdominal Surgery: Yes AICD: No Appendectomy: Yes Body Medical Devices: INDWELLING CATHETER Cardiac Surgery: Yes (carotid ) Endocrine Surgery: No Eye Surgery: No Genitourinary Surgery: No Gynecologic Surgery: No Joint Replacement: No Neurologic Surgery: No Oral Surgery: No Pacemaker: No Thoracic Surgery: No Other Surgery: Yes (APPENDECTOMY 1995/ carotid artery) Social History Alcohol Use: No Tobacco Use: No Substance Use: No Allergies-Medications (Allergen,Severity, Reaction): Coded Allergies: Penicillins (Verified Allergy, Severe, Nausea/Vomiting, 04/14/17) Reported Meds & Prescriptions Reported Meds & Active Scripts Active Levothyroxine (Levothyroxine Sodium) 100 Mcg Tab 100 Mcg PO DAILY Reported Amlodipine (Amlodipine Besylate) 5 Mg Tab 5 Mg PO DAILY Hydrochlorothiazide 25 Mg Tab 25 Mg PO DAILY Losartan (Losartan Potassium) 50 Mg Tab 50 Mg PO DAILY Metoprolol Tartrate 50 Mg Tab 50 Mg PO BID Pravastatin 80 Mg Tab 80 Mg PO DAILY Vitamin B Complex (B-Complex Vitamins) 1 Tab 1 Tab PO DAILY Eliquis (Apixaban) 5 Mg Tab 5 Mg PO BID Review of Systems Except as stated in HPI: all other systems reviewed are Neg General / Constitutional: No: Fever HENT: No: Lightheadedness Gastrointestinal: No: Nausea, Vomiting, Abdominal Pain Genitourinary: Positive: Hematuria Physical Exam Narrative GENERAL: Awake, alert, pleasant 81-year-old male who appears his stated age and is in no acute respiratory distress. SKIN: Focused skin assessment warm/dry. HEAD: Atraumatic. Normocephalic. EYES: No injection or drainage. GASTROINTESTINAL: Abdomen soft, non-tender, nondistended. No rebound tenderness , guarding, rigidity. MUSCULOSKELETAL: No cyanosis, clubbing, or edema. Back: No CVA tenderness. NEUROLOGICAL: Awake, eyes open, follow simple commands. PSYCHIATRIC: Appropriate mood and affect; insight and judgment normal. Data Data Last Documented VS Vital Signs Date Time Temp Pulse Resp B/P (MAP) Pulse Ox O2 Delivery O2 Flow Rate FiO2 08/17/17 12:35 70 16 141/73 (95) 98 08/17/17 10:21 98.3 Orders Orders Complete Blood Count With Diff (08/17/17 10:42) Basic Metabolic Panel (Bmp) (08/17/17 10:42) Urinalysis - C+S If Indicated (08/17/17 10:42) Bladder/Catheter Irrigation (08/17/17 10:42) Urine Culture (08/17/17 10:50) Labs Laboratory Tests Test 08/17/17 10:50 White Blood Count 6.3 TH/MM3 Red Blood Count 4.91 MIL/MM3 Hemoglobin 14.5 GM/DL Hematocrit 42.4 % Mean Corpuscular Volume 86.3 FL Mean Corpuscular Hemoglobin 29.5 PG Mean Corpuscular Hemoglobin Concent 34.2 % Red Cell Distribution Width 14.7 % Platelet Count 160 TH/MM3 Mean Platelet Volume 10.9 FL Neutrophils (%) (Auto) 51.0 % Lymphocytes (%) (Auto) 40.0 % Monocytes (%) (Auto) 6.3 % Eosinophils (%) (Auto) 2.1 % Basophils (%) (Auto) 0.6 % Neutrophils # (Auto) 3.2 TH/MM3 Lymphocytes # (Auto) 2.5 TH/MM3 Monocytes # (Auto) 0.4 TH/MM3 Eosinophils # (Auto) 0.1 TH/MM3 Basophils # (Auto) 0.0 TH/MM3 CBC Comment DIFF FINAL Differential Comment Urine Color RED Urine Turbidity HAZY Urine pH 6.5 Urine Specific [place] 1.021 Urine Protein 100 mg/dL Urine Glucose (UA) NEG mg/dL Urine Ketones NEG mg/dL Urine Occult Blood LARGE Urine Nitrite NEG Urine Bilirubin NEG Urine Urobilinogen 2.0 MG/DL Urine Leukocyte Esterase MOD Urine RBC /hpf Urine WBC 14 /hpf Microscopic Urinalysis Comment CATH-CULTURE IND Blood Urea Nitrogen 16 MG/DL Creatinine 1.15 MG/DL Random Glucose 151 MG/DL Calcium Level 8.8 MG/DL Sodium Level 139 MEQ/L Potassium Level 3.2 MEQ/L Chloride Level 104 MEQ/L Carbon Dioxide Level 26.2 MEQ/L Anion Gap 9 MEQ/L Estimat Glomerular Filtration Rate 74 ML/MIN [facility] Medical Decision Making Medical Screen Exam Complete: Yes Emergency Medical Condition: Yes Medical Record Reviewed: Yes Interpretation(s) Laboratory Tests Test 08/17/17 10:50 White Blood Count 6.3 TH/MM3 Red Blood Count 4.91 MIL/MM3 Hemoglobin 14.5 GM/DL Hematocrit 42.4 % Mean Corpuscular Volume 86.3 FL Mean Corpuscular Hemoglobin 29.5 PG Mean Corpuscular Hemoglobin Concent 34.2 % Red Cell Distribution Width 14.7 % Platelet Count 160 TH/MM3 Mean Platelet Volume 10.9 FL Neutrophils (%) (Auto) 51.0 % Lymphocytes (%) (Auto) 40.0 % Monocytes (%) (Auto) 6.3 % Eosinophils (%) (Auto) 2.1 % Basophils (%) (Auto) 0.6 % Neutrophils # (Auto) 3.2 TH/MM3 Lymphocytes # (Auto) 2.5 TH/MM3 Monocytes # (Auto) 0.4 TH/MM3 Eosinophils # (Auto) 0.1 TH/MM3 Basophils # (Auto) 0.0 TH/MM3 CBC Comment DIFF FINAL Differential Comment Urine Color RED Urine Turbidity HAZY Urine pH 6.5 Urine Specific [place] 1.021 Urine Protein 100 mg/dL Urine Glucose (UA) NEG mg/dL Urine Ketones NEG mg/dL Urine Occult Blood LARGE Urine Nitrite NEG Urine Bilirubin NEG Urine Urobilinogen 2.0 MG/DL Urine Leukocyte Esterase MOD Urine RBC /hpf Urine WBC 14 /hpf Microscopic Urinalysis Comment CATH-CULTURE IND Blood Urea Nitrogen 16 MG/DL Creatinine 1.15 MG/DL Random Glucose 151 MG/DL Calcium Level 8.8 MG/DL Sodium Level 139 MEQ/L Potassium Level 3.2 MEQ/L Chloride Level 104 MEQ/L Carbon Dioxide Level 26.2 MEQ/L Anion Gap 9 MEQ/L Estimat Glomerular Filtration Rate 74 ML/MIN Differential Diagnosis Differential diagnosis includes hematuria, bladder cancer, UTI, hemorrhagic cystitis, medication side effect, Carrasco catheter trauma, acute kidney injury. Narrative Course A bedside ultrasound was performed, there is no obvious bladder distention. The Carrasco catheter appears to be draining. The Carrasco catheter was irrigated. UA was sent to lab. CBC and BMP were sent to lab. Creatinine is at baseline. White count is unremarkable. UA does reveal RBCs and WBCs, patient was administered Cipro. Patient be discharged home on Cipro with Carrasco catheter, advised to follow-up with urology. The Carrasco catheter was irrigated until draining mostly clear fluid. Procedures Procedure Narrative A bedside ultrasound was performed using a curvilinear probe. Carrasco catheter was visualized, no obvious bladder distention. The patient tolerated the procedure without difficulty. There was no obvious complications. Diagnosis Primary Impression: Hematuria Qualified Codes: R31.0 - Gross hematuria Additional Impression: UTI (urinary tract infection) Qualified Codes: T83.511A - Infection and inflammatory reaction due to indwelling urethral catheter, initial encounter; N39.0 - Urinary tract infection , site not specified Patient Instructions: General Instructions, Moderate Sedation in Children (ED) , Moderate Sedation (ED) Additional Instructions: Medications as directed. Follow-up with your primary physician. Return if symptoms worsen or progress. Provide a patient a copy of his labs at discharge. Med/Other Pt SpecificInfo: Prescription(s) given Scripts Ciprofloxacin (Cipro) 500 Mg Tab 500 MG PO BID for Infection for 7 Days, #14 TAB 0 Refills Prov: Jaret Childers MD 08/17/17 Disposition: 01 DISCHARGE HOME Condition: Stable Jaret Childers MD Aug 17, 2017 10:47
[2017-08-17 11:12] LABS: AUTOMATED NEUTROPHIL # 3.2 TH/MM3 (1.8-7.7); BASOPHIL % 0.6 % (0.0-2.0); EOSINOPHIL # 0.1 TH/MM3 (0-0.4); EOSINOPHIL % 2.1 % (0.0-4.0); HEMATOCRIT 42.4 % (39.0-51.0); HEMOGLOBIN 14.5 GM/DL (13.0-17.0); LYMPHOCYTE # 2.5 TH/MM3 (1.0-4.8); MEAN CELL VOLUME 86.3 FL (80.0-100.0); MEAN CORPUSCULAR HEMOGLOBIN 29.5 PG (27.0-34.0); MEAN CORPUSCULAR HGB CONC 34.2 % (32.0-36.0); MEAN PLATELET VOLUME 10.9 FL (7.0-11.0); MONO % 6.3 % (0.0-8.0); MONOCYTE # 0.4 TH/MM3 (0-0.9); PLATELET COUNT 160 TH/MM3 (150-450); RED BLOOD COUNT 4.91 MIL/MM3 (4.50-5.90); RED CELL DISTRIBUTION WIDTH 14.7 % (11.6-17.2); WHITE BLOOD COUNT 6.3 TH/MM3 (4.0-11.0)
[2017-08-17 11:29] LABS: BICARBONATE 26.2 MEQ/L (21.0-32.0); CALCIUM 8.8 MG/DL (8.5-10.1); CREATININE 1.15 MG/DL (0.60-1.30)
[2017-08-17 11:58] LABS: BILIRUBIN, URINE NEG (NEG); BLOOD, URINE LARGE (NEG); GLUCOSE,URINE NEG (NEG); KETONE, URINE NEG (NEG); NITRITE,URINE NEG (NEG); PH, URINE 6.5 (5.0-8.5); URINE LEUKOCYTE ESTERASE MOD (NEG)
[2017-08-17 11:59] LABS: URINE COLOR RED (YELLW/STRAW)
[2017-08-17 12:35] VITALS: BP 141/73; PULSE 70; RESP 16; O2SAT 98
[2017-08-17] MEDS ORDERED: CIPR-9 PO (12:57)
[2017-08-17] MEDS ORDERED: CIPROFLOXACIN 400 MG PREMIX 200 ML IV ONE (13:00)
== END 2017-08-17 20:41 | disposition home or self-care (01) ==
LOC: NEPE 10:03
DX: T83.511A Infection and inflammatory reaction due to indwelling urethral catheter, initial encounter (principal); R31.0 Gross hematuria; E07.9 Disorder of thyroid, unspecified; I10 Essential (primary) hypertension; I48.91 Unspecified atrial fibrillation; Z79.01 Long term (current) use of anticoagulants
CPT/HCPCS: 51700; 80048; 81001; 85025; 87077; 87086; 87186; 96374; 99284; J0744